=== PATIENT | female | born 1975 | race Caucasian/White ===

== ENCOUNTER 2019-04-26 15:02 | Outpatient (CLI) | payer BC, SELFPAY ==
--- NOTE | ~2019-04-26 | DEXA_ITS ---
BMD(1) Young-Adult(2) Age-Matched(3) Region (g/cm2) T-score Z-score WHO Classification L1 1.189 0.4 0.0 Normal L2 1.310 0.8 0.4 Normal L3 1.247 0.2 -0.1 Normal L4 1.364 1.1 0.7 Normal L1-L4 1.285 0.7 0.3 Normal L2-L4 1.310 0.8 0.4 Normal Trend: L2-L4 Change vs Change vs Measured Age BMD(1) Baseline Previous Date (years) (g/cm2) (%) (%) 04/26/2019 [age] 1.310 baseline - 1 - Statistically 68% of repeat scans fall within 1SD (+- 0.010 g/cm2 for AP Spine L2-L4) 2 - [place] (Combined NHANES (ages 20-30) / [employer] (ages 20-40)) AP Spine Reference Population (v112) 3 - Matched for Age, Weight (females 25-100 kg), Ethnic 11 - World Health Organization - Definition of Osteoporosis and Osteopenia for Women: Normal = T-score at or above -1.0 SD; Osteopenia = T-score between -1.0 and -2.5 SD; Osteoporosis = T-score at or below -2.5 SD; (WHO definitions only apply when a young healthy Women reference database is used to determine T-scores.) Printed: 04/26/2019 3:57:51 PM (13.60)76:3.00:50.00:12.0 0.00:9.78 0.60x1.05 27.9:%Fat=41.9% 0.00:0.00 0.00:0.00 Filename: [id number] Scan Mode: Standard;OneScan 37.0 A LITTLE WORLD [id number] BMD(1) Young-Adult(2,7) Age-Matched(3) Region (g/cm2) T-score Z-score WHO Classification Neck Left 1.220 1.3 1.6 Normal Right 1.214 1.3 1.6 Normal Mean 1.217 1.3 1.6 Normal Difference 0.005 0.0 0.0 - Total Left 1.257 2.0 2.0 Normal Right 1.265 2.0 2.0 Normal Mean 1.261 2.0 2.0 Normal Difference 0.007 0.1 0.1 - Hip [place] Length Comparison (mm) (Right = 98.4 mm) (Mean = 101.2 mm) (Left = 105.6 mm) Trend: Total Mean Change vs Change vs Measured Age BMD(1) Baseline Previous Date (years) (g/cm2) (%) (%) 04/26/2019 44.1 1.261 baseline - 1 - Statistically 68% of repeat scans fall within 1SD (+- 0.010 g/cm2 for DualFemur Total) 2 - [place] (Combined NHANES (ages 20-30) / [employer] (ages 20-40)) Femur Reference Population (v112) 3 - Matched for Age, Weight (females 25-100 kg), Ethnic 7 - DualFemur Total T-score difference is 0.1. Asymmetry is None. 11 - World Health Organization - Definition of Osteoporosis and Osteopenia for Women: Normal = T-score at or above -1.0 SD; Osteopenia = T-score between -1.0 and -2.5 SD; Osteoporosis = T-score at or below -2.5 SD; (WHO definitions only apply when a young healthy Women reference database is used to determine T-scores.) Printed: 04/26/2019 3:57:51 PM (13.60); Filename: [id number]; Right Femur; 20.3:%Fat=24.8%; Neck Angle (deg)= 67; Scan Mode: Standard 37.0 uGy; Left Femur; 19.9:%Fat=29.6%; Neck Angle (deg)= 72; Scan Mode: Standard 37.0 uGy [employer] [id number] Your patient Kenyetta Saucedo completed a BMD test on 04/26/2019 using the [employer]wright DXA System (analysis version: 13.60) manufactured by [employer] The following summarizes the results of our evaluation. PATIENT BIOGRAPHICAL: Name: Kenyetta Saucedo Date: 1975 Height: 60.0 in. Gender: Female Exam Date: 04/26/2019 Weight: 170.0 lbs.
--- NOTE | ~2019-04-26 | MM_ITS ---
EXAMINATION: MM screening vibha BI w nathen HISTORY: Screening mammogram TECHNIQUE: Craniocaudal and mediolateral oblique 3-D tomosynthesis images were obtained and synthetic 2-D images were generated. CAD analysis was submitted and interpreted. COMPARISON: None, baseline BREAST PARENCHYMAL COMPOSITION: The breasts are heterogeneously dense, which may obscure small masses . FINDINGS: There is no evidence of suspicious mass, calcification, or architectural distortion to sugg est malignancy in either breast. IMPRESSION: 1. No mammographic evidence of malignancy. 2. Recommend routine screening mammography in one year. BI-RADS Category 1: Negative Reviewed, dictated and finalized at location A. T MAKER
== END 2019-04-26 15:03 | disposition home or self-care (01) ==
LOC: CHSIMG 15:05
PROVIDERS: PCP Family Medicine
DX: Z12.31 Encounter for screening mammogram for malignant neoplasm of breast (principal); Z78.0 Asymptomatic menopausal state
CPT/HCPCS: 77063; 77067; 77080

== ENCOUNTER 2019-07-19 11:36 | Outpatient (CLI) | payer BC, SELFPAY ==
[2019-07-19 12:28] LABS: Basophils Absolute Auto 0.02 K/mm3 (0.00-0.10); Basophils Percent Auto 0.2 % (0.0-1.0); Eosinophils Absolute Auto 0.01 K/mm3 (0.02-0.50); Eosinophils Percent Auto 0.1 % (1.0-6.0); Hematocrit 37.7 % (35.0-49.0); Hemoglobin 12.6 g/dL (12.0-15.0); Immature Granulocyte Absolute 0.09 K/mm3 (0.00-0.00); Immature Granulocyte Percent A 0.8 % (0.0-0.0); Lymphocytes Absolute Auto 1.98 K/mm3 (1.10-4.50); Lymphocytes Percent Auto 18.2 % (18.0-42.0); Mean Corpuscular HGB Conc 33.4 g/dL (32.0-36.0); Mean Corpuscular Hemoglobin 29.9 pg (27.0-31.0); Mean Corpuscular Volume 89.3 fL (78.0-102.0); Mean Platelet Volume 11.6 fl (9.2-11.8); Monocytes Absolute Auto 0.56 K/mm3 (0.10-0.90); Monocytes Percent Auto 5.1 % (2.0-11.0); Neutrophils Absolute Auto 8.2 K/mm3 (1.7-7.2); Neutrophils Percent Auto 75.6 % (50.0-70.0); Platelet Count Result 224 K/mm3 (150-420); Red Blood Count 4.22 M/mm3 (4.20-5.40); Red Cell Distribution Width 13.2 % (11.6-14.4); White Blood Count 10.9 K/mm3 (4.8-10.8)
[2019-07-19 13:32] LABS: Alanine Aminotransferase 25 U/L (14-59); Albumin Level 4.1 g/dL (3.4-5.0); Alkaline Phosphatase 57 U/L (46-116); Anion Gap 18.7 mmol/L (7-16); Aspartate Amino Transferase 13 U/L (15-37); Bilirubin,Total 0.7 mg/dL (0.00-1.00); Blood Urea Nitrogen 17 mg/dL (7-18); Calcium 8.5 mg/dL (8.5-10.1); Carbon Dioxide 22 mmol/L (21-32); Chloride 106 mmol/L (98-108); Estimated Glomerular Filt Rate > 60; Glucose 101 mg/dL (70-99); Osmolality Calculated 297 mOsm/kg (285-295); Potassium 3.7 mmol/L (3.5-5.1); Sodium 143 mmol/L (136-145); Thyroid Stimulating Hormone 1.27 uIU/mL (0.36-3.74); Total Protein 7.3 g/dL (6.4-8.2)
== END 2019-07-19 11:37 | disposition home or self-care (01) ==
LOC: CHSLAB 11:41
PROVIDERS: PCP Family Medicine; Visit Provider Family Medicine
DX: M54.2 Cervicalgia (principal)
CPT/HCPCS: 36415; 80053; 84443; 85025

== ENCOUNTER 2019-12-06 22:09 | Emergency (ER) | payer BC, SELFPAY ==
--- NOTE | ~2019-12-06 | XR_ITS ---
EXAMINATION: XR hand LT min 3V DATE: 12/06/2019 22:55 INDICATION: Left hand pain. TECHNIQUE: 3 views of left hand were obtained. COMPARISON: None. FINDINGS: Bone alignment is normal. No fracture. There is mild osteoarthritis of first carpometacarpa l joint and many of the interphalangeal joints. There is moderate osteoarthritis of second and third distal interphalangeal joints. IMPRESSION: 1. Polyarticular osteoarthritis. Reviewed, dictated and finalized at location A.
[2019-12-06 22:15] VITALS: BP 153/93; PULSE 80; RESP 20; TEMP 36.9; O2SAT 98
--- NOTE | 2019-12-06 22:29 | ED.GENADULT ---
HPI - General Adult General Chief complaint: Extremity Injury, Upper Stated complaint: hand pain Source: patient Mode of arrival: ambulatory Limitations: no limitations History of Present Illness HPI narrative: Kenyetta is a 44F with a PMH of pseudo tumor cerebri and surgery on her left hand for arthritis that presented to the ED with pain in her left hand. She was going out walking her large 100lb dog when it bolted. The leash then slammed her left hand into the door. She had immediate pain, numbness, tingling and swelling and came to the ED. She had no other injures and no other medical concerns. Related Data Home Medications Medication Instructions Recorded Confirmed acetazolamide 500 mg PO DAILY 12/06/19 12/06/19 gabapentin 600 mg PO TID 12/06/19 12/06/19 medroxyprogesterone 150 mg IM [id number] 12/06/19 12/06/19 tizanidine 4 mg PO DAILY 12/06/19 12/06/19 Allergies Allergy/AdvReac Type Severity Reaction Status Date / Time No Known Allergies Allergy Verified 12/06/19 22:25 Review of Systems Constitutional: Constitutional: Reports no additional constitutional complaints Eyes: Eyes: Reports no additional eye complaints ENT: Reports system reviewed and no additional complaints, except as documented Cardiovascular: Cardiovascular: Reports no additional cardiovascular complaints Respiratory: Respiratory: Reports no additional respiratory complaints Gastrointestinal: Gastrointestinal: Reports no additional gastrointestinal complaints Genitourinary: Genitourinary: Reports no additional female genitourinary complaints Musculoskeletal: Musculoskeletal: Reports as per HPI Integumentary/Breasts: Skin/Breast: Reports system reviewed and no additional complaints, except as docu Neurologic: Reports system reviewed and no additional complaints, except as documented Psychiatric: Psychiatric: Reports no additional psychiatric complaints Endocrine: Endocrine: Reports no additional endocrine complaints Hematologic/Lymphatic: Hematologic/Lymphatic: Reports no additional hematologic/lymphatic complaints Allergic/Immunologic: Allergic/Immunologic: Reports no additional allergic/immunologic complaints Exam Const: General: no acute distress and alert Orientation/consciousness: patient oriented x3 Limitations: No altered mental status HENMT: Head: normal to inspection Eyes: Conjunctivae: conjunctivae normal Pupils: Equal, round and reactive pupils present Neck: Neck: normal visual inspection Chest: Chest palpation & inspection: normal inspection of the chest Resp: Effort & Inspection: normal respiratory effort Cardio: Rate: regular rate GI: GI Palp: Yes Soft to palpation, No Tenderness to palpation present (GI) and No Guarding due to palpation present (GI) Skin: General skin exam: normal color Rashes: no rashes Neuro: General: patient oriented x3 and moves all extremities Other: Has sensation in all fingers of her left hand and has normal movement and strenght in the left hand and fingers Extrem: Other: Swelling over the lateral dorsal side of her left hand. 5/5 emergency medical services coordinator strength. No tenderness in the anatomic snuffbox. Psych: Appearance: grossly normal Mental Status: mental status grossly normal Course Course Emergency Course: Kenyetta was evaluated and radiographs were ordered. She refused pain meds. EXAMINATION: XR hand LT min 3V DATE: 12/06/2019 22:55 INDICATION: Left hand pain. TECHNIQUE: 3 views of left hand were obtained. COMPARISON: None. FINDINGS: Bone alignment is normal. No fracture. There is mild osteoarthritis of first carpometacarpal joint and many of the interphalangeal joints. There is moderate osteoarthritis of second and third distal interphalangeal joints. IMPRESSION: 1. Polyarticular osteoarthritis. Discharge Plan Discharge Clinical Impression: Contusion of hand Patient Disposition: Home, Self-Care Condition: Stable Instructions: Contusion in Adults (ED) Additional Instr
[2019-12-06 23:09] VITALS: BP 121/75; PULSE 80; RESP 18; TEMP 36.8; O2SAT 99
== END 2019-12-06 23:10 | disposition home or self-care (01) ==
PROVIDERS: Emergency Provider Family Medicine; PCP Family Medicine
DX: S60.222A Contusion of left hand, initial encounter (principal); W22.8XXA Striking against or struck by other objects, initial encounter
CPT/HCPCS: 73130; 99282; 99283

== ENCOUNTER 2020-11-11 19:06 | Outpatient (CLI) | payer BC, SELFPAY ==
[2020-11-11 19:31] LABS: Mean Platelet Volume 11.3 fl (9.2-11.8); Platelet Count Result 219 K/mm3 (150-420)
[2020-11-11 19:44] LABS: Prothrombin Time 10.9 Seconds (9.50-12.10)
== END 2020-11-11 19:07 | disposition home or self-care (01) ==
LOC: CHSLAB 19:10
PROVIDERS: PCP Physician Assistant
DX: G93.2 Benign intracranial hypertension (principal)
CPT/HCPCS: 36415; 85049; 85610

== ENCOUNTER 2023-11-06 08:18 | Outpatient (CLI) | payer BC, SELFPAY ==
--- NOTE | ~2023-11-06 | MR_ITS ---
EXAMINATION: MR brain/brain stem wo con DATE: 11/06/2023 09:12 INDICATION: Benign intracranial hypertension TECHNIQUE: Magnetic resonance imaging (MRI) of the brain and brainstem was performed without intraven ous contrast. Sequences included sagittal and axial T1-weighted SE, axial diffusion-weighted FS SE, a xial T2*-weighted GRE, axial T2-weighted FLAIR, and axial T2-weighted FSE. Apparent diffusion coeffic ient (ADC) maps were created. COMPARISON: Head CT dated 09/15/2016 FINDINGS: Small region of encephalomalacia consistent with chronic infarct in the right occipital lobe. There a re no areas of restricted diffusion to suggest acute infarction. No intracranial hemorrhage. There is a 1.3 cm region of increased T2 signal intensity in the anterior inferior right frontal lobe. There are no intraparenchymal signal abnormalities seen on the other pulse sequences. The ventricles are sy mmetric and normal in size. There are no abnormal extra-axial fluid collections. Flow voids are seen in the cerebral arteries on the T2-weighted sequences consistent with their expected patency. Small l ikely mucous retention cyst at the lateral left maxillary sinus. Visualized orbits and soft tissues a re unremarkable. IMPRESSION: 1. Small old infarct in the right occipital lobe. No acute intracranial process. 2. Single indeterminate 1.3 cm T2 hyperintense lesion in the anterior right frontal lobe which has a wide differential which would include malignancy either primary or metastatic. Would recommend additi onal postcontrast MR imaging for further evaluation. Reviewed, dictated and finalized at location A. IMPRESSION: 1. Small old infarct in the right occipital lobe. No acute intracranial process . 2. Single indeterminate 1.3 cm T2 hyperintense lesion in the anterior right fro ntal lobe which has a wide differential which would include malignancy either p rimary or metastatic. Would recommend additional postcontrast MR imaging for fu rther evaluation.
--- NOTE | ~2023-11-06 | XR_ITS ---
XR chest 2V DATE: 11/06/2023 09:04 INDICATION: Worsening wheezing TECHNIQUE: 2 views COMPARISON: 03/19/2014 2 view chest FINDINGS: Normal heart size. No hilar or mediastinal enlargement. No pulmonary infiltrate or consolid ation, pleural effusion or pulmonary vascular congestion or pneumothorax. There is thoracic dextroscoliosis. Status post anterior and posterior cervical spine fusion. IMPRESSION: No active cardiopulmonary disease or pulmonary hyperinflation is detected Reviewed, dictated and finalized at location J. IMPRESSION: No active cardiopulmonary disease or pulmonary hyperinflation is de tected
== END 2023-11-06 08:19 | disposition home or self-care (01) ==
LOC: CHSIMG 08:20
PROVIDERS: PCP Family Medicine
DX: G93.2 Benign intracranial hypertension (principal); J20.9 Acute bronchitis, unspecified; Z86.73 Personal history of transient ischemic attack (TIA), and cerebral infarction without residual deficits
CPT/HCPCS: 70551; 71046

== ENCOUNTER 2023-11-20 08:19 | Outpatient (CLI) | payer BC, SELFPAY ==
--- NOTE | ~2023-11-20 | MR_ITS ---
EXAMINATION: MR brain/brain stem wo/w con DATE: 11/20/2023 10:19 INDICATION: Abnormal masses seen on prior examination. TECHNIQUE: Magnetic resonance imaging (MRI) of the brain and brainstem was performed without and with intravenous contrast. Sequences included sagittal and axial T1-weighted SE, axial diffusion-weighted FS SE, axial T2*-weighted GRE, axial T2-weighted FLAIR Propeller, and axial T2-weighted Propeller. A pparent diffusion coefficient (ADC) maps were created. 14 cc MultiHance administered intravenously. COMPARISON: MRI dated 11/06/2023. FINDINGS: There is a chronic right occipital lobe infarction. There is a right frontal lobe T2 hyperi ntense mass measuring 1.5 x 1.2 cm with relatively homogeneous enhancement. There is an associated en hancing dural tail no ventriculomegaly or midline shift. Orbits are symmetric without disconjugate ga ze. Paranasal sinuses and mastoids are pneumatized. Structures of the posterior fossa including 7/8th cranial nerve complexes are normal. No ventriculomegaly or midline shift. Orbits are symmetric witho ut disconjugate gaze. IMPRESSION: 1. Enhancing right frontal lobe mass with enhancing dural tail. Considerations include benign meningi marti, metastatic disease and primary intracranial neoplasm. 2: Chronic right occipital lobe infarction. Reviewed, dictated and finalized at location B. IMPRESSION: 1. Enhancing right frontal lobe mass with enhancing dural tail. Considerations include benign meningioma, metastatic disease and primary intracranial neoplasm . 2: Chronic right occipital lobe infarction.
== END 2023-11-20 08:20 | disposition home or self-care (01) ==
PROVIDERS: PCP Family Medicine
DX: R93.89 Abnormal findings on diagnostic imaging of other specified body structures (principal)
CPT/HCPCS: 70553; A9577

== ENCOUNTER 2023-11-30 12:36 | Outpatient (CLI) | payer BC, SELFPAY ==
--- NOTE | ~2023-11-30 | US_ITS ---
EXAMINATION: US carotid duplex BI DATE: 11/30/2023 13:31 INDICATION: Right occipital lobe cerebral infarct TECHNIQUE: Grayscale, color Doppler, and pulsed Doppler images of the cervical carotid arteries were obtained. The degree of vessel stenosis is placed in one of the following categories: normal, <50%, 5 0-69%, >=70% but less than near-occlusion, near-occlusion, or total occlusion. Note that percent sten osis relative to normal distal artery lumen diameter is indirectly measured from velocity measurement s as described by Alex, et al. Radiology 2003; [id number]:340-346. COMPARISON: None. FINDINGS: RIGHT: The right common carotid artery (CCA) peak systolic velocity (PSV) is 63 cm/s. The right internal car otid artery (ICA) PSV is 79 cm/s. The right ICA end-diastolic velocity (EDV) is 43 cm/s. The right IC A/CCA PSV ratio is 1.3. Grayscale and color Doppler images yield an estimate of 0% diameter reduction from plaque in the ICA. There is antegrade flow in the right vertebral artery. LEFT: The left CCA PSV is 65 cm/s. The left ICA PSV is 69 cm/s. The left ICA EDV is 32 cm/s. The left ICA/C CA PSV ratio is 1.0. Grayscale and color Doppler images yield an estimate of 0% diameter reduction fr om plaque in the ICA. There is antegrade flow in the left vertebral artery. IMPRESSION: 1. Normal internal carotid arteries. Reviewed, dictated and finalized at location A.
== END 2023-11-30 12:37 | disposition home or self-care (01) ==
PROVIDERS: PCP Family Medicine
DX: I63.9 Cerebral infarction, unspecified (principal)
CPT/HCPCS: 93880

== ENCOUNTER 2023-12-02 14:42 | Outpatient (CLI) | payer BC, SELFPAY ==
[2023-12-03 06:48] LABS: Cholesterol 133 mg/dL (0-200); HDL Direct 36 mg/dL (40-60); LDL Cholesterol Calculated 60 mg/dL (<130); Triglycerides 184 mg/dL (0-150)
== END 2023-12-02 14:43 | disposition home or self-care (01) ==
LOC: CHSLAB 14:52
PROVIDERS: PCP Physician Assistant
DX: I63.9 Cerebral infarction, unspecified (principal)
CPT/HCPCS: 36415; 80061

== ENCOUNTER 2023-12-23 11:59 | Outpatient (CLI) | payer BC, SELFPAY ==
--- NOTE | 2023-12-23 12:08 | ECHO_ITS ---
Patient Info Name: Kenyetta Saucedo Age: 48 years : 1975 Gender: Female Ht: 60 in Wt: 158 lbs BSA: 1.77 m2 HR: 65 bpm BP: 121 / 87 mmHg Heart Rhythm: Sinus Rhythm Technical Quality: Good Exam Date: 12/23/2023 12:08 PM Exam Location: [facility] Patient Status: Outpatient Admit Date: 12/23/2023 Staff Ordering Physician: JuanMela Inoculator: Diana Perez RDCS Attending Provider: ShemarMela Exam Type: CA echo doppler color flow Study Info Indications - CEREBRAL INFARCTION Complete two-dimensional, color flow and Doppler transthoracic echocardiogram is performed. Summary 1. Complete two-dimensional, color flow and Doppler transthoracic echocardiogram is performed. 2. Left ventricular chamber dimension is normal. 3. Left ventricular systolic function is normal, estimated at 60-65%. 4. The left ventricular diastolic function is grade I diastolic dysfunction. 5. E/e' 11 is mildly elevated. 6. There is trace tricuspid valve regurgitation. 7. No pulmonary hypertension, estimated pulmonary arterial systolic pressure is 31 mmHg. 8. There is trace pulmonic regurgitation. Left Ventricle E/e' 11 is mildly elevated. Left ventricular chamber dimension is normal. Left ventricular systolic function is normal, estimated at 60-65%. The left ventricular diastolic function is grade I diastolic dysfunction. Right Ventricle Right ventricular systolic function is normal and with normal TAPSE 2.3 cm. Right ventricular chamber dimension is normal. Left Atria Left atrial chamber dimension is normal. Right Atria Right atrial chamber dimension is normal. Aortic Valve The aortic valve is trileaflet. There is no aortic valve stenosis. There is no aortic valve regurgitation. Pulmonic Valve There is trace pulmonic regurgitation. Mitral Valve There is no mitral valve stenosis. There is no mitral valve regurgitation. Tricuspid Valve There is trace tricuspid valve regurgitation. No pulmonary hypertension, estimated pulmonary arterial systolic pressure is 31 mmHg. Pericardium/Pleural There is no pericardial effusion. Inferior Vena Cava Normal inferior vena cava with >50% collapse upon inspiration consistent with normal right atrial pressure, 5 mmHg. Aorta The aortic root size at the sinus of Valsalva is normal. Left Ventricular Outflow Tract Name Value Normal LVOT 2D LVOT Diameter 2.0 cm LVOT Doppler LVOT Peak Velocity 134 cm/s LVOT Peak Gradient 7 mmHg LVOT Mean Gradient 5 mmHg LVOT VTI 34 cm LVOT VTI/AV VTI Ratio 0.9 LVOT Stroke Volume 102 ml Mitral Valve Name Value Normal MV Doppler MV Decel Jessamine 376 cm/s2 MV PHT 73 ms MV Area (PHT) 3.0 cm2 4.0-5.0 MV Diastol
== END 2023-12-23 12:00 | disposition home or self-care (01) ==
LOC: CHSIMG 12:03
PROVIDERS: PCP Physician Assistant
DX: I63.9 Cerebral infarction, unspecified (principal)
CPT/HCPCS: 93306

== ENCOUNTER 2023-12-29 08:17 | Outpatient (CLI) | payer BC, SELFPAY ==
[2023-12-29 08:39] LABS: Mean Platelet Volume 11.5 fl (9.2-11.8); Platelet Count Result 242 K/mm3 (150-420)
[2023-12-29 08:52] LABS: Prothrombin Time 10.8 Seconds (9.50-12.1)
== END 2023-12-29 08:18 | disposition home or self-care (01) ==
LOC: CHSLAB 08:23
PROVIDERS: PCP Physician Assistant
DX: H47.11 Papilledema associated with increased intracranial pressure (principal)
CPT/HCPCS: 36415; 85049; 85610

== ENCOUNTER 2024-01-18 10:16 | Outpatient (CLI) | payer BC, SELFPAY ==
--- NOTE | ~2024-01-18 | CT_ITS ---
CT ANGIOGRAM HEAD History: Headache, pseudotumor cerebri. Technique: Axial noncontrast imaging of the brain was performed. Serial spiral axial images through t he head were then obtained during arterial phase IV injection of 100 cc of Omnipaque 350. 3-D postpro cessing and MIP images were then reconstructed on the remote workstation. Dose reduction technique wa s used on this scan by utilizing automated exposure control and iterative reconstruction technique. [facility] dose-length product (DLP) was 1035.02 mGy-cm. Findings: There is a 1.6 x 1.0 x 1.4 cm hypodense presumed meningioma in the anterior right cranial f jennifer (series 2 image 15). No intracranial hemorrhage or acute infarct seen. No significant mass effec t or midline shift. There are several focal areas of hypodensity in the parietal lobes superiorly (ax ial images 35, 45, 48).. Ventricles and subarachnoid spaces are unremarkable. Paranasal sinuses and m astoid air cells are clear. Calvarium intact. Distal vertebral arteries, basilar artery, and posterior cerebral arteries are patent. Distal interna l carotid arteries, middle cerebral arteries, and anterior cerebral arteries are patent. No large ves opal occlusion or stenosis. No aneurysm seen. Impression: 1.6 x 1.0 x 1.4 cm meningioma in the anterior cranial fossa, as detailed above. No vascular abnormality evident. Focal hypodense areas in the high parietal lobes, as detailed above. Findings likely represent chron ic focal infarcts. Reviewed, dictated and finalized at location M. Impression: 1.6 x 1.0 x 1.4 cm meningioma in the anterior cranial fossa, as detailed above. No vascular abnormality evident. Focal hypodense areas in the high parietal lobes, as detailed above. Findings l ikely represent chronic focal infarcts.
[2024-01-18 10:52] LABS: Estimated Glomerular Filt Rate > 60
== END 2024-01-18 10:17 | disposition home or self-care (01) ==
PROVIDERS: PCP Physician Assistant
DX: I63.9 Cerebral infarction, unspecified (principal); D32.0 Benign neoplasm of cerebral meninges
CPT/HCPCS: 70496; Q9967

== ENCOUNTER 2024-01-24 09:31 | Outpatient (CLI) | payer BC, SELFPAY ==
--- NOTE | ~2024-01-24 | MM_ITS ---
EXAMINATION: MM screening vibha BI w nathen HISTORY: Screening TECHNIQUE: Craniocaudal and mediolateral oblique 3-D tomosynthesis images were obtained and synthetic 2-D images were generated. CAD analysis was submitted and interpreted. COMPARISON: 04/26/2019 BREAST PARENCHYMAL COMPOSITION: Dense: The breasts are heterogeneously dense, which may obscure small masses FINDINGS: There is no evidence of suspicious mass, calcification, or architectural distortion to sugg est malignancy in either breast. There has been no suspicious interval change. IMPRESSION: 1. No mammographic evidence of malignancy. 2. Recommend routine screening mammography in one year. BI-RADS Category 1: Negative Reviewed, dictated and finalized at location B. COMMUNITY MANAGER
--- NOTE | ~2024-01-24 | XR_ITS ---
XR cervical spine 4-5V Ordering provider: Montse Santana History: . RADICULOPATHY; CERVICAL REGION . Comparison: None. FINDINGS: VERTEBRAL BODIES: Normal height and alignment. No visible fracture or subluxation. The dens is intact . Postoperative changes seen at the levels of C5, C6 and C7. DISK SPACES: Narrowing of the disc C4-C5 otherwise, Well maintained. Uncovertebral joint osteoarthrit ic changes at the level of C4-C5. Narrowing of the right C6-C7 intervertebral foramen. PARASPINOUS SOFT TISSUES: No prevertebral soft tissue swelling. IMPRESSION: No acute osseous abnormality cervical spine. Postoperative changes. Reviewed, dictated and finalized at location A. CTOR OF RECRUITMENT AND ADMISSIONS
== END 2024-01-24 09:32 | disposition home or self-care (01) ==
LOC: CHSIMG 09:37
PROVIDERS: PCP Physician Assistant
DX: Z12.31 Encounter for screening mammogram for malignant neoplasm of breast (principal); M54.12 Radiculopathy, cervical region; Z98.890 Other specified postprocedural states
CPT/HCPCS: 72050; 77063; 77067

== ENCOUNTER 2024-02-08 00:13 | Day surgery (SDC) | payer BC, SELFPAY ==
[2024-02-04 13:55] VITALS: BMI 31.5
[2024-02-08 08:58] VITALS: BP 106/86; PULSE 75; RESP 16; TEMP 36.1; O2SAT 75; BMI 30.5
[2024-02-08 09:06] LABS: Glucose Point of Care 88 mg/dl (65-105)
--- NOTE | 2024-02-08 09:12 | WPDANESEPPF ---
Anes - Initial Pre Proc Eval Procedure: Operation Date: 02/08/24 10:00 Proposed Procedures p Colonoscopy - Dominic Gibbons MD Date/Time: 02/08/24 09:12 Surgeon: Dominic Gibbons MD Pre Op Diagnosis: Family history of malignant neoplasm Patient Data Age: 48 Gender: F Height: 1.52 m Weight: 73.2 kg Allergies Allergy/AdvReac Type Severity Reaction Status Date / Time acetaminophen Allergy Anaphylaxis Verified 02/08/24 09:08 [From Tylenol-Codeine #3] codeine Allergy Anaphylaxis Verified 02/08/24 09:08 [From Tylenol-Codeine #3] Home Medications Medication Instructions Recorded Confirmed Type acetazolamide 500 mg 500 mg PO DAILY 12/06/19 02/08/24 History capsule,extended release gabapentin 600 mg tablet 600 mg PO TID 12/06/19 02/08/24 History medroxyprogesterone 150 mg/mL 150 mg IM [id number] 12/06/19 02/08/24 History intramuscular syringe tizanidine 4 mg tablet 4 mg PO TID 12/06/19 02/08/24 History furosemide 80 mg tablet 80 mg PO DAILY 02/04/24 02/08/24 History nortriptyline 10 mg capsule 20 mg PO DAILY 02/04/24 02/08/24 History potassium chloride 20 mEq 20 meq PO DAILY 02/04/24 02/08/24 History tablet,extended release(part/cryst) (Klor-Con M) rosuvastatin 10 mg tablet 10 mg PO DAILY 02/04/24 02/08/24 History Laboratory Tests 02/08/24 09:02 POC Capillary Glucose 88 mg/dl (65-105) Patient hx anesthesia problems: none Family hx anesthesia problems: none Results Review: All pre-operative results and documents have been reviewed as part of the pre-operative evaluation. [facility] Social History Social History Smoking status: Never smoker Alcohol intake: current Alcohol use details: rarely Substance use: never Substance use type: does not use Living arrangements: with family Spiritual care concerns: No Anes - Eval Final PreProcedure Day of Procedure 02/08/24 09:12 Patient weight: obese Heart: regular rate and rhythm Lungs: clear to auscultation Airway: Mallampati scale class II Neurological: alert and oriented Last oral intake: >/= 8 hours ASA classification: II Emergent: no Anesthetic plan: proceed Anesthesia type and monitoring: general GIVS and standard monitoring Results Review: All pre-operative results and documents have been reviewed as part of the pre-operative evaluation. Hyperlipidemia. Hx of mild CVA/TIA, no clear residual. Ex smoker, Pt reports new dx of meningioma but no intervention at this point. ECHO 12/2023 w nml LVEF. Informed Consent: The patient's anesthetic plan and its attendant risks and benefits were discussed with the patient/family/POA. Questions were solicited and answers provided to the satisfaction of the patient/family/POA.
[2024-02-08 09:16] LABS: BEDSIDEPREGUCG Negative (Negative)
[2024-02-08] MEDS: LACTATED RINGERS 1,000 ML 150 ML IV CONT (09:29)
--- NOTE | 2024-02-08 10:19 | P.HP_ITS ---
H&P: HPI History of Present Illness Date/Time: 02/08/24 10:19 Chief Complaint: This is the patient's first colonoscopy. There are no GI symptoms and there is no family history of colorectal cancer. Review of Systems Review of Systems: All systems reviewed & are unremarkable except as noted in HPI and below [facility] Social History Social History Smoking status: Never smoker Alcohol intake: current Alcohol use details: rarely Substance use: never Substance use type: does not use Living arrangements: with family Spiritual care concerns: No Meds Home Medications and Allergies Home Medications Medication Instructions Recorded Confirmed Type acetazolamide 500 mg 500 mg PO DAILY 12/06/19 02/08/24 History capsule,extended release gabapentin 600 mg tablet 600 mg PO TID 12/06/19 02/08/24 History medroxyprogesterone 150 mg/mL 150 mg IM [id number] 12/06/19 02/08/24 History intramuscular syringe tizanidine 4 mg tablet 4 mg PO TID 12/06/19 02/08/24 History furosemide 80 mg tablet 80 mg PO DAILY 02/04/24 02/08/24 History nortriptyline 10 mg capsule 20 mg PO DAILY 02/04/24 02/08/24 History potassium chloride 20 mEq 20 meq PO DAILY 02/04/24 02/08/24 History tablet,extended release(part/cryst) (Klor-Con M) rosuvastatin 10 mg tablet 10 mg PO DAILY 02/04/24 02/08/24 History Allergies Allergy/AdvReac Type Severity Reaction Status Date / Time acetaminophen Allergy Anaphylaxis Verified 02/08/24 09:08 [From Tylenol-Codeine #3] codeine Allergy Anaphylaxis Verified 02/08/24 09:08 [From Tylenol-Codeine #3] Vital Signs Vital Signs - 24 hr 02/08/24 08:58 Temperature 97.0 F L Pulse Rate 75 Respiratory Rate 16 Blood Pressure 106/86 Pulse Oximetry 75 L Oxygen Delivery Room Air Exam Const: General: cooperative and healthy appearing Resp: Effort & Inspection: normal respiratory effort and able to speak in complete sentences Auscultation: clear to auscultation bilaterally Cardio: Rate: regular rate Rhythm: regular rhythm GI: Inspection: normal to inspection GI Palp: No No hepatosplenomegaly present Auscultation: normal bowel sounds Rectal Exam: deferred Skin: General skin exam: normal color Psych: Appearance: grossly normal Mental Status: mental status grossly normal Assessment and Plan Assessment and plan (1) Screening for malignant neoplasm of colon: Code(s): Z12.11 - Encounter for screening for malignant neoplasm of colon Status: Acute Assessment and Plan: The patient is deemed a good candidate for the procedure. Consent signed. Will proceed.
[2024-02-08 10:50] VITALS: BP 112/71; PULSE 70; RESP 22; O2SAT 100
[2024-02-08 11:00] VITALS: BP 111/77; PULSE 64; RESP 18; O2SAT 100
[2024-02-08 11:10] VITALS: BP 120/83; PULSE 70; RESP 20; O2SAT 100
== END 2024-02-08 11:20 | disposition home or self-care (01) ==
PROVIDERS: PCP Physician Assistant; Visit Provider Internal Medicine Gastroenterology
PROC: 0DJD8ZZ Inspection of Lower Intestinal Tract, Via Natural or Artificial Opening Endoscopic (ICD-10-PCS; CPT 45378; principal; 2024-02-08 10:00)
DX: Z12.11 Encounter for screening for malignant neoplasm of colon (principal); D12.2 Benign neoplasm of ascending colon; K57.30 Diverticulosis of large intestine without perforation or abscess without bleeding; E78.5 Hyperlipidemia, unspecified; E66.9 Obesity, unspecified; Z68.30 Body mass index [BMI] 30.0-30.9, adult; Z87.891 Personal history of nicotine dependence; Z86.79 Personal history of other diseases of the circulatory system; Z80.0 Family history of malignant neoplasm of digestive organs
CPT/HCPCS: 45385; 82948; 88305; J2003; J2704; J7120

== ENCOUNTER 2024-03-07 12:07 | Outpatient (CLI) | payer BC, SELFPAY ==
--- NOTE | ~2024-03-07 | DEXA_ITS ---
Bone Density Report Name: RUTH CARLSON Age: 49 Sex: Female Ethnicity: White Date of : 1975 Indication: screening for osteoporosis; prior fracture; Referring Provider: Claudio, Mina Study: Bone densitometry was performed. Exam Date: March 07, 2024 Accession number: [id number] Bone Density: Region BMD T-score Z-score Classification AP Spine(L1-L4) 0.979 -0.6 0.1 Normal Femoral Neck (Left) 0.962 1.0 1.8 Normal Total Hip (Left) 1.096 1.3 1.7 Normal Femoral Neck (Right) 0.953 0.9 1.7 Normal Total Hip (Right) 1.096 1.3 1.7 Normal Femoral Neck Mean 0.957 1.0 1.7 Normal Total Hip Mean 1.096 1.3 1.7 Normal World Health Organization criteria for BMD impression classify patients as: Normal (T-score at or above -1.0), Osteopenia (T-score between -1.0 and -2.5), or Osteoporosis (T-score at or below -2.5). 10-year Fracture Risk: FRAX not reported because: Premenopausal woman All T-scores for Spine Total, Hip Total, Femoral Neck at or above -1.0 Previous Exams: Region Exam Age BMD T-score BMD Change BMD Change Date g/cm2 vs Baseline vs Previous AP Spine (L1-L4) 03/07/2024 49 0.979 -0.6 -0.162 (-14.2% -0.162 (-14.2% 04/26/2019 44 1.141 0.9 Total Hip(Left) 03/07/2024 49 1.096 1.3 -0.088 (-7.4%) -0.088 (-7.4%) 04/26/2019 44 1.184 2.0 Total Hip(Right) 03/07/2024 49 1.096 1.3 -0.095 (-7.9%) -0.095 (-7.9%) 04/26/2019 44 1.191 2.0 *Denotes significance at 95% confidence level, LSC for AP Spine = 0.022 g/cm2, LSC for Total Hip = 0.027 g/cm2 # Denotes dissimilar scan types or analysis methods Clinical Information Provided by Patient: Has had a low trauma fracture Patient maximum height was 59.9 No regular weight bearing exercise Drinks caffeinated beverages Onset of menses at age 11 Premenopausal Number of children 2 Missed period for more than 6 months in a row Impression: The patient's bone mass is within expected range for age, gender and ethnicity. The patient has risk factors, including: previous fracture. No significant bone loss was observed. Discussion: BONE DENSITY IS WITHIN EXPECTED LIMITS FOR AGE, SEX AND RACE. Bone density is within expected limits for age, sex and race at all sites measured. The patient should follow a healthful lifestyle (good nutrition with adequate calcium and vitamin D, and appropriate weight-bearing exercise). Follow-Up: Consider repeating this study in 5 years or sooner if there is some new clinical indication. Reported by: ABIGAIL on 03/07/2024 12:40:00 PM. Reviewed, dictated and finalized at location A.
--- NOTE | ~2024-03-07 | CT_ITS ---
CT Scan of the Chest without Contrast: Clinical Indication: Lung cancer screening, nicotine dependence Technique: Contiguous sections were acquired throughout the chest without intravenous contrast. Dose reduction technique was used on this scan by utilizing automated exposure control and iterative recon struction technique. The dose-length product (DLP) was 76.24 mGy-cm. Findings: There is no evidence of any significant mediastinal, hilar or axillary lymphadenopathy. The mediastin al soft tissues appear normal. There is no evidence of pleural or pericardial effusion. The lungs are clear. No pulmonary nodules or infiltrates are noted. Images through the upper abdomen reveal no abnormalities. Impression: Lung RADS 1: Negative. 12 month follow-up screening CT advised. Reviewed, dictated and finalized at location . OMS COMPLIANCE DIRECTOR Impression: Lung RADS 1: Negative. 12 month follow-up screening CT advised.
[2024-03-07 13:52] LABS: CRP < 0.5 mg/dL (0.0-0.9)
== END 2024-03-07 12:08 | disposition home or self-care (01) ==
PROVIDERS: PCP Physician Assistant
DX: Z12.2 Encounter for screening for malignant neoplasm of respiratory organs (principal); Z79.3 Long term (current) use of hormonal contraceptives; Z13.820 Encounter for screening for osteoporosis; Z87.891 Personal history of nicotine dependence
CPT/HCPCS: 36415; 71271; 77080; 86140

== ENCOUNTER 2024-03-16 08:23 | Outpatient (CLI) | payer BC, SELFPAY ==
--- NOTE | ~2024-03-16 | MR_ITS ---
EXAMINATION: MRA brain wo con DATE: 03/16/2024 09:15 INDICATION: Intracranial aneurysm. TECHNIQUE: Magnetic resonance angiography (MRA) of the brain was performed without intravenous contra st with T1-weighted SPGR by the 3D [id number] technique. Maximum intensity projection 3D-reconstr uctions were obtained. COMPARISON: CTA head 01/18/2024, brain MRI 11/20/2023. FINDINGS: Left vertebral artery is dominant. There is no significant stenosis of basilar artery or the posterio r cerebral arteries. There is no significant stenosis of intracranial internal carotid arteries or an terior or middle cerebral arteries. Anterior communicating artery is normal. The posterior communicat ing arteries are normal. There is no aneurysm. There is a 14 mm extra-axial mass inferior to right fr ontal lobe, consistent with a meningioma. IMPRESSION: 1. No aneurysm. 2. 14 mm meningioma inferior to right frontal lobe. Reviewed, dictated and finalized at location A. SOFTWARE ARCHITECT
[2024-03-16 09:51] LABS: Erythrocyte Sedimentation Rate 5 mm/hr (0-15)
== END 2024-03-16 08:24 | disposition home or self-care (01) ==
LOC: CHSIMG 08:30
PROVIDERS: PCP Physician Assistant
DX: D32.0 Benign neoplasm of cerebral meninges (principal)
CPT/HCPCS: 36415; 70544; 85652

== ENCOUNTER 2024-05-10 12:54 | Outpatient (RCR) | payer BC, SELFPAY ==
--- NOTE | 2024-05-10 14:17 | OPREHPOC ---
Outpatient Therapy Plan of Care This is a Multidisciplinary Plan of Care that may contain components documented by all disciplines (PT, OT, and ST.) PT Problem 1 PT Problem #1 Knowledge Deficit PT Goal 1 Goal / Goal Update The patient will be independent in a home exercise program. Target Visit 4 PT Problem 2 PT Problem #2 Pain PT Goal 1 Goal / Goal Update The patient will report no greater than 4/10 cervical pain with cervical AROM and ADLs. Target Visit 6 PT Problem 3 PT Problem #3 Impaired Functional Mobility PT Goal 1 Goal / Goal Update The patient will demonstrate 50% or less self perceived disability per the Neck Index questionnaire. Target Visit 6
--- NOTE | 2024-05-10 14:17 | PTOPEVAL1 ---
Assessment and note entered by Odilia Robison, PT Evaluation Information Assessment Status Evaluation ICD-10 Condition Codes (PT) Radiculopathy, cervical M54.13 Onset 02/08/24 Subjective Information Kenyetta Saucedo reports she had two different cervical fusions in 2013. The first surgery did not take so a second was performed. She has been having pain since then and on disability. She is very limited with daily activities due to her chronic pain. She has to take extra time with all daily activities. She has had PT in the past after her surgeries and it caused her pain to be increased. She went to her neurologist for another diagnosis and her neck issues came up. She has been having frequent headaches and an eye doctor sent her to see a neurologist. A MRI showed a mass on her brain. She was told she had 3 strokes and diagnosed with a menangioma and small aneurysm. She has had an injection to help with her headaches which were diagnosed with migraines. Her neurologist wants to get her a MRI of her cervical spine but her insurance will not cover it until she tries PT. She has pain along her neck and both shoulders. She also gets numbness in her face and both hands. She notes pain is worse with driving, turning her head, sleeping, and trying to perform house chores. Reported Pain Level Pain Score 5: Self Report Assessment PT Clinical Summary Kenyetta Saucedo presents with chronic cervical pain and radiculopathy. She has had 2 cervical fusions in the past with the first one being a failure. 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 She objectively demonstrates decreased and painful cervical AROM, decreased posture, and tension in bilateral upper trapezius. She will benefit from skilled PT to address these limitations. Plan of Care Interventions Electrical Stimulation,Hot Pack/Cold Pack,Manual Therapy,Patient/Caregiver Education,Therapeutic Exercise PT Services Indicated Yes Treatment Frequency and 2 times a week for 6 visits Duration These treatments will address the objective and functional deficits as defined above. The patient will be advanced safely and appropriately in order for the patient to progress towards his/her prior level of function. Additional exercises will be introduced and as well as a comprehensive home exercise program upon discharge, if needed, ?to ensure carryover of functional gains achieved in the clinic. This treatment plan has been reviewed and agreement upon by the patient.
--- NOTE | 2024-05-30 15:10 | OPREHPOC ---
Outpatient Therapy Plan of Care This is a Multidisciplinary Plan of Care that may contain components documented by all disciplines (PT, OT, and ST.) PT Problem 1 PT Problem #1 Knowledge Deficit PT Goal 1 Goal / Goal Update The patient will be independent in a home exercise program. patient refused to perform therapeutic exercise Target Visit 4 Progress Not Met PT Problem 2 PT Problem #2 Pain PT Goal 1 Goal / Goal Update The patient will report no greater than 4/10 cervical pain with cervical AROM and ADLs. Target Visit 6 Progress Not Met PT Problem 3 PT Problem #3 Impaired Functional Mobility PT Goal 1 Goal / Goal Update The patient will demonstrate 50% or less self perceived disability per the Neck Index questionnaire. Target Visit 6 Progress Not Met
--- NOTE | 2024-05-30 15:10 | PTOPDC ---
Assessment and note entered by Odilia Robison, PT Evaluation Information Assessment Status Discharge ICD-10 Condition Codes (PT) Radiculopathy, cervical M54.13 Onset 02/08/24 Subjective Information Kenyetta Saucedo reports her neck pain and symptoms have not changed since she has been coming to PT. She is having less headaches however, she has been getting injections for migraines. Reported Pain Level Pain Score 6: Self Report Assessment PT Clinical Summary Kenyetta Saucedo has completed 6 skilled PT visits for cervical radiculopathy. She is reporting no overall change noted in symptoms since participating in PT. Treatment has been conservative with modalities and gently massage only as the patient does not tolerate therapeutic exercise. She objectively demonstrates ongoing tenderness in bilateral upper and middle trapezius muscles, decreased and painful cervical AROM, and decreased functional mobility. She did have a regression in cervical flexion AROM today compared to her initial evaluation. She will be discharged . Plan of Care PT Services Indicated No
== END 2024-05-30 15:40 | disposition home or self-care (01) ==
LOC: CHSPT 12:54
DX: M54.12 Radiculopathy, cervical region (principal)
CPT/HCPCS: 97014; 97140; 97162; 97750; G0283

== ENCOUNTER 2024-06-09 10:56 | Outpatient (CLI) | payer BC, SELFPAY ==
--- NOTE | ~2024-06-09 | XR_ITS ---
EXAMINATION: XR chest 2V 06/09/2024 11:21 INDICATION: Preop testing. Smoking history. PROCEDURE: 2 view chest COMPARISON: 11/06/2023 FINDINGS: The lungs are clear. The cardiomediastinal silhouette is within normal limits. There are no pleural effusions. There is no pneumothorax suspected. IMPRESSION: 1: NO ACUTE CARDIOPULMONARY DISEASE. Reviewed, dictated and finalized at location B.
--- NOTE | 2024-06-09 11:11 | ECG_ITS ---
Test Date: 2024-06-09 11:29:06 Measurements Intervals [place] Rate: 66 P: 25 MN: 156 QRS: 35 QRSD: 89 T: 39 QT: 381 QTc: 402 Interpretive Statements SINUS RHYTHM No previous ECG available for comparison Electronically Signed On 06-09-2024 18:16:51 CDT by Mathieu Rush M.D.
--- OUTSIDE RECORDS SUMMARY | 2024-06-09 12:20 | XMS_ITS | Data Portability ---
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 Pseudotumor cerebri 3. Chronic daily headaches / migraines 4. Mild coginitive deficits 5. No suspicion for Vasculitis. >>>>>>>>>>>>>>>>>>> >>>>>>>>>>>>>>>>>>> >>>>>> In my assessment, the patient does not have vasculitis of the central nervous system. It is likely that she suffered in 2017 a monophasic episode of RCVS ( reversible cerebrovascular vasoconstriction syndrome); there are several historic points to substantiate that: 1. Thunderclap headache at onset of her illness at [place] in 2017, with ICU stay. 2. diagnostic angiogram from [place] shows on series 10 with a left vert injection, areas of caliber change with skip lesions, with almost poor perfusion to no perfusion in the right DEMURRAGE CLERK territory. A corresponding; she has right occipital area of encephalomalacia probably the result of ischemia from RCVS. 3. The bilateral ICA injections on the angiogram show bilateral medium and multivessel skip lesions, suggestive of vasospasm, both of them affecting the posterior divisions of the middle cerebral arteries. There are bilateral distal peripheral areas of encephalomalacia in the parietal lobe on recent MRIs, which would be suggestive of ischemia caused by vasospasm in the distal watershed beds during a monophasic episode of vasospasm or RCVS. 4. The patient was on Effexor and Wellbutrin at the time of her illness in 2017, medications known to trigger for idiosyncratic reasons this illness. 5. Evidence against the presence vasculitis of the central nervous system is a recently normal MRA,, normal CRP, normal ESR, but most importantly a completely normal FLAIR sequence in terms of subcortical white matter small vessel disease burden. In our experience, ASE MASTER MECHANIC vasculitis, with such a protracted course of daily headaches and prior admissions with ASE MASTER MECHANIC illness, with present with small vessel or medium vessel disease burden on MRI. In summary I think she had RCVS in 2017, which caused the peripheral 3 areas of encephalomalacia in the brain that correspond to vasospasm seen on angiography, in the setting of SSRI/SNRI treatment. If one wishes to further confirm the absence of vasculitis, Dr Haley may elect to repeat the diagnostic angiogram, which will likely show complete reversal of her skip lesions. Resolution of angiographic findings suggests no Vasculitis (it would be impossible for her to have ASE MASTER MECHANIC vasculitis with reversal of the intracranial findings without steroids or long-term immunotherapy). I would like to believe her diagnosis of pseudotumor cerebri, especially that it has been diagnosed by an insole beveler and a neurologist with funduscopic examination. I would urge her to continue the care for this condition under Dr. Gilbert. She could have concomitant migraine headaches, intractable headaches, and pseudotumor cerebri, all of that would fall under the care of Dr. Gilbert, she will talk to them to see if there is room for treatment optimization. She suffers from mild cognitive changes, trouble finding her words, trouble with multitasking. I would recommend the next time she sees general neurology to have a full battery of memory testing, and help work her up for any cognitive deficits that could be retrained. The bilateral small parietal infarct could contribute to decreased cognitive function, it is not uncommon for bilateral cerebral hemispheric insults to cause cognitive deficits. Overall the patient is very well-functioning and I believe a short course of speech therapy to address her word finding difficulties and help her with multitasking activities is going to be of great benefit. I will order it accordingly. I do not see a need for the patient to return to see me. In the presence of old ischemic insults in the brain bilaterally, it would not be unreasonable to continue the low-dose aspirin which Dr. Haley started. total visit time with chart prep and documentation and counseling added up to 60min. [email or web address] Not available 04/04/2024 18:03:50 04/25/2024 04/25/2024 IMPRESSION: 1. History of multiple cerebrovascular accidents in the setting of an initially abnormal angiogram in 2017 with skip lesions and findings suggestive of vasospasm. More recent MRI/MRA did not show any flow abnormalities. 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 Furthermore, would not expect spontaneous remission of ASE MASTER MECHANIC vasculitis. 2. Cervical failed back syndrome. 3. Osteoarthritis. PLAN: 1. We will obtain serologies, including a complete ANCA panel, arthritis panel, Sjogren s screen, ROMY level, homocysteine level, lupus anticoagulant profile, antiphospholipid antibody panel, factor V Leiden, protein C and S, and [id number]-vjjaogmldcul , as well as antithrombin III in light of her family history of cerebrovascular accidents, though her vascular distribution shows reversible and not fixed vessel changes that have resolved on more recent MRI reassessment. 2. At this time, there is no indication of a need for immunosuppressive therapy. She does not exhibit features consistent with any type of autoimmune or vasculitic process. 3. Followup visit as needed here in rheumatology clinic. [email or web address] Not available 04/27/2024 10:24:55 05/04/2024 05/04/2024 In summary, Cleo luna is a 49-year-old woman, I am seeing in consultation regarding chronic headache, visual symptoms. Her neuro-ophthalmic examination today is normal. Specifically, there is no evidence of papilledema. Optic nerves are healthy looking. OCT RNFL, normal thickness OU. Ocampo visual field normal OU. The rest of her visual afferent and efferent functions are intact. Kenyetta's clinical course and neuro-ophthalmic examination are NOT consistent with optic neuritis. She also have no signs, or symptoms of elevated intracranial pressure, in fact lumbar puncture was performed in December 2023 that showed normal opening pressure at 20 cm. In addition, she have no risk factors for idiopathic intracranial hypertension, no recent weight gain, no exposure to high doses of vitamin A or steroids. She also had no exposure to doxycycline, tetracycline, or minocycline. I gave her instructions to decrease the dose of acetazolamide to 1000 mg daily. The dose of acetazolamide will be further decrease on her follow-up appointments. It is my impression that her headaches, and visual symptoms are secondary to untreated migraine. She agreed to try the newer CGRP blockers today. She received Emgality loading dose, 240 mg subcutaneous injection. If she has good response to Emgality, she will continue this medication at 120 mg subcutaneous injection, every 4 weeks. I answered all of her questions and concerns. She voiced understanding. [email or web address] Not available 05/04/2024 17:14:49 06/01/2024 06/01/2024 In summary, Cleo luna is a 49-year-old woman, I am seeing in consultation regarding chronic headache, and visual symptoms. Her neuro-ophthalmic examination today is normal. Specifically, there is no evidence of papilledema. Optic nerves are healthy looking. OCT RNFL, normal thickness OU. Ocampo visual field normal OU. The rest of her visual afferent and efferent functions are intact. Kenyetta's clinical course and neuro-ophthalmic examination are NOT consistent with optic neuritis. She also have no signs, or symptoms of elevated intracranial pressure, in fact lumbar puncture was performed in December 2023 that showed normal opening pressure at 20 cm. In addition, she have no risk factors for idiopathic intracranial hypertension, no recent weight gain, no exposure to high doses of vitamin A or steroids. She also had no exposure to doxycycline, tetracycline, or minocycline. I gave her instructions to d/c diamox today (06/01/24). It is my impression that her headaches, and visual symptoms are secondary to untreated migraine. She agreed to try the newer CGRP blockers today. She received Emgality loading dose, 240 mg subcutaneous injection. If she has good response to Emgality, she will continue this medication at 120 mg subcutaneous injection, every 4 weeks. He is seeing Dr. 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 I answered all of her questions and concerns. She voiced understanding. [email or web address] Not available 06/01/2024 11:34:03 Plan of Treatment Reminders Order Date Submit Date Provider Last Modified By Organization Details Last Modified Time Details Appointments Nurse Surgery Block 120.SURG 2024 10:00A M Dr. Davian Haley Not available Not available Not available Establish ed Patient 20.EST 04/07/ 2025 11:[address] Davian Haley Not available Not available Not available Establish ed Patient 30.EST 2024 01:00P M Enoc Camachoariane Not available Not available Not available Lab CBC w/ auto diff 2024 025 [facility] - [facility], [address] [place] [address], [id number], 06/06/2024 07:02:52 CMP, serum or plasma 2024 025 [facility] - [facility], [address] [place] [address], [id number], 06/06/2024 07:02:52 anca panel, serum 2024 025 [facility] - [facility], [address] [place] [address], [id number], 04/28/2024 19:38:06 arthritis panel 2024 025 [facility] - [facility], [address] [place] [address], [id number], 04/25/2024 18:16:55 sjogren antibody panel (ssa, ssb, ro, la), serum 2024 025 [facility] - [facility], [address] [place] [address], [id number], 04/26/2024 11:38:44 ROMY (angioten sin-conve rting enzyme), serum 2024 025 [facility] - [facility], [address] [place] [address], [id number], 04/26/2024 14:38:26 homocyste ine, moles/vol ume, serum 2024 025 [facility] - [facility], [address] [place] [address], [id number], 04/26/2024 13:38:23 lupus anticoagu lant aPTT + dRVVT screening panel w reflex 2024 025 [facility], [address] [place] [address], [id number], 04/27/2024 04:36:31 antiphosp holipid antibody panel, serum 2024 025 [facility], [address] [place] [address], [id number], 04/30/2024 12:40:48 factor V mutation, blood or tissue 2024 025 [facility], [address] [place] [address], [id number], 05/01/2024 15:41:24 protein C + protein S, functiona l panel, plasma 2024 025 [facility], [address] [place] [address], [id number], 04/27/2024 03:38:18 beta-2 glycoprot ein 1 iga+igg+i gm Ab, serum 2024 025 [facility], [address] [place] [address], [id number], 05/09/2024 04:21:07 antithrom bin Ag, quantitat perla, platelet poor plasma 2024 025 [facility], [address] [place] [address], [id number], 04/27/2024 03:38:19 Referral None recorded. Procedures visual evoked potential (PROC) 2024 025 [facility] - Central Scheduling, [address] [place] [address], [id number], 06/07/2024 12:12:03 Surgeries None recorded. Imaging None recorded. Medication Orders Emgality Pen 120 mg/mL subcutane ous pen injector 2024 025 [email or web address] [facility] [address], [id number], 06/06/2024 07:02:26 Patient TargetsNo targets recorded. Patient InstructionsNo instructions recorded. Reason for Referral None Reported. Results Created Date Observation Date Name Description Value Unit Range Abnormal Flag Note LastModifiedBy Organization Detail LastModifiedTime 04/25/1904/26/2024 sjogr en antib milad panel (ssa, ssb, ro, la), serum sjogren's Ab (ssa Not Available [facility] [address] [place] [address], [id number], 04/26/2024 11:38:44 04/25/19 25 04/26/2024 sjogr en antib milad panel (ssa, ssb, ro, la), serum *ssa result <0.2 ai 0.0-0. 9 Not Available [facility] [address] [place] [address], [id number], 04/26/2024 11:38:44 04/25/19 25 04/26/2024 sjogr en antib milad panel (ssa, ssb, ro, la), serum *ssb result <0.2 ai 0.0-0. 9 Not Available [facility] [address] [place] [address], [id number], 04/26/2024 11:38:44 04/25/19 25 04/26/2024 homoc ystei ne, moles /volu me, serum homocysteine 12.7 umol/ L 0.0-14 .5 Not Available [facility] [address] [place] [address], [id number], 04/26/2024 13:38:23 04/25/19 25 04/26/2024 ROMY (nicole otens in-co nvert ing enzym e), serum angiotensin- 1-conv enyzme 36 U/L 14-82 Not Available [facility] [address] [place] [address], [id number], 04/26/2024 14:38:26 04/25/19 25 04/27/2024 prote in C + prote in S, funct ional panel , plasm a protein C Not Available [facility] [address] [place] [address], [id number], 04/27/2024 03:38:18 04/25/19 25 04/27/2024 prote in C + prote in S, funct ional panel , plasm a protein C activity 161 % 73-180 Not Available [facility] [address] [place] [address], [id number], 04/27/2024 03:38:18 04/25/19 25 04/27/2024 prote in C + prote in S, funct ional panel , plasm a protein S activity 128 % 63-140 Prote in S activ ity may be false ly incre ased (mask ing an abnor mal, low resul t) in patie nts recei ving direc t Xa inhib itor (e.g. , rivar oxaba n, apixa ban, edoxa ban) or a direc t throm bin inhib itor (e.g. , dabig atran ) antic oagul ant treat ment due to assay inter feren ce by these drugs . Not Available [facility] [address] [place] [address], [id number], 04/27/2024 03:38:18 04/25/19 25 04/27/2024 antit hromb in activ ity, plasm a antithrombin III act rf 135 % 75-135 Direc t Xa inhib itor antic oagul ants such as rivar oxaba n, apixa ban and edoxa ban will lead to spuri ously eleva yaw antit hromb in activ ity level s possi susu maski ng a defic iency . Not Available [facility] [address] [place] [address], [id number], 04/27/2024 05:00:14 04/25/19 25 04/25/2024 arthr itis panel uric acid 3.3 mg/dL 2.3-6. 6 Not Available [facility] [address] [place] [address], [id number], 04/27/2024 17:21:27 04/25/19 25 04/25/2024 arthr itis panel sed rate 5 mm/HR 0 - 20 Not Available [facility] [address] [place] [address], [id number], 04/27/2024 17:21:27 04/25/19 25 04/25/2024 arthr itis panel rf 8.0 IU/mL <3.5-1 4 Not Available [facility] [address] [place] [address], [id number], 04/27/2024 17:21:27 04/25/19 25 04/25/2024 arthr itis panel ccp antibody, IgG <0.54 U/mL <=4.9 Not Available [facility] [address] [place] [address], [id number], 04/27/2024 17:21:27 04/25/19 25 04/27/2024 arthr itis panel arthritis panel Not Available [facility] [address] [place] [address], [id number], 04/27/2024 17:21:27 04/25/19 25 04/27/2024 arthr itis panel AUBREE screen NEGATI VE negati ve Perfo rmed by Bio-R ad enzym e immun oassa y Not Available [facility] [address] [place] [address], [id number], 04/27/2024 17:21:27 04/25/19 25 04/28/2024 anca panel , serum anca, complete Not Available [facility] [address] [place] [address], [id number], 04/28/2024 19:38:06 04/25/19 25 04/28/2024 anca panel , serum myeloperoxid ase Ab <0.2 units 0.0-0. 9 Not Available [facility] [address] [place] [address], [id number], 04/28/2024 19:38:06 04/25/19 25 04/28/2024 anca panel , serum proteinase-3 Ab, anca <0.2 units 0.0-0. 9 Not Available [facility] [address] [place] [address], [id number], 04/28/2024 19:38:06 04/25/19 25 04/28/2024 anca panel , serum C-anca titer <1:20 titer neg:<1 :20 Not Available [facility] [address] [place] [address], [id number], 04/28/2024 19:38:06 04/25/19 25 04/28/2024 anca panel , serum P-anca titer <1:20 titer neg:<1 :20 The prese nce of posit perla fluor escen ce exhib iting P-ANC A or C-ANC A patte rns alone is not speci fic for the diagn osis of Wegen er's Granu lomat osis (WG) or micro scopi c polya ngiit is. Decis ions about treat ment shoul d not be based solel y on ANCA IFA resul ts. The Inter natio nal ANCA Group Conse nsus recom mends follo w up testi ng of posit perla sera with both UT-3 and MPO-A NCA enzym e immun oassa ys. As many as 5% serum sampl es are posit perla only by EIA. Ref. AM J Clin Patho l 1999; 111:5 07-51 3. Not Available [facility] [address] [place] [address], [id number], 04/28/2024 19:38:06 04/25/19 25 04/28/2024 anca panel , serum atypical P anca titer <1:20 titer neg:<1 :20 The atypi edwina pANCA patte rn has been obser paolo in a signi fican t perce ntage of patie nts with ulcer ative colit is, prima ry scler osing chola ngiti s and autoi mmune hepat itis. Not Available [facility] [address] [place] [address], [id number], 04/28/2024 19:38:06 04/25/19 25 04/30/2024 antip hosph olipi d antib milad panel , serum antiphosphol ipid Ab panel Not Available [facility] [address] [place] [address], [id number], 04/30/2024 12:40:48 04/25/19 25 04/30/2024 antip hosph olipi d antib milad panel , serum B2-glycoprot ein I IgG Ab <9 gpi_I gG 0-20 The refer ence inter judy refle cts a 3SD or 99th perce ntile inter judy, which is thoug ht to repre sent a poten tiall y clini joel signi fican t resul t in accor dance with the Inter natio nal Conse nsus State ment on the class ifica tion crite madan for defin itive antip hosph olipi d syndr ome (APS) . J Throm b Haem 2006; 4:295 -306. Not Available [facility] [address] [place] [address], [id number], 04/30/2024 12:40:48 04/25/19 25 04/30/2024 antip hosph olipi d antib milad panel , serum B2-glycoprot ein I IgM Ab <9 gpi_I gM 0-32 The refer ence inter judy refle cts a 3SD or 99th perce ntile inter judy, which is thoug ht to repre sent a poten tiall y clini joel signi fican t resul t in accor dance with the Inter natio nal Conse nsus State ment on the class ifica tion crite madan for defin itive antip hosph olipi d syndr ome (APS) . J Throm b Haem 2006; 4:295 -306. Not Available [facility] [address] [place] [address], [id number], 04/30/2024 12:40:48 04/25/19 25 04/30/2024 antip hosph olipi d antib milad panel , serum B2-glycoprot ein I IgA Ab <9 gpi_I gA 0-25 The refer ence inter judy refle cts a 3SD or 99th perce ntile inter jduy, which is thoug ht to repre sent a poten tiall y clini joel signi edilma t resul t in accor dance with the Inter natio nal Conse nsus State ment on the class ifica tion crite madan for defin itive antip hosph olipi d syndr ome (APS) . J Throm b Haem 2006; 4:295 -306. Not Available [facility] [address] [place] [address], [id number], 04/30/2024 12:40:48 04/25/19 25 04/30/2024 antip hosph olipi d antib milad panel , serum phosphatidyl serine IgA <1 0-19 Not Available [facility] [address] [place] [address], [id number], 04/30/2024 12:40:48 04/25/19 25 04/30/2024 antip hosph olipi d antib milad panel , serum phosphatidyl serine IgG 9 units 0-30 Not Available [facility] [address] [place] [address], [id number], 04/30/2024 12:40:48 04/25/19 25 04/30/2024 antip hosph olipi d antib milad panel , serum phosphatidyl serine IgM 25 units 0-30 Not Available [facility] [address] [place] [address], [id number], 04/30/2024 12:40:48 04/25/19 25 04/30/2024 antip hosph olipi d antib milad panel , serum cardiolipin IgM <9 mpl_U /mL 0-12 Negat perla: <13 Indet ermin ate: 13 - 20 Low-M ed Posit perla: >20 - 80 High Posit perla: >80 Not Available [facility] [address] [place] [address], [id number], 04/30/2024 12:40:48 04/25/19 25 04/30/2024 antip hosph olipi d antib milad panel , serum cardiolipin IgA <9 apl_U /mL 0-11 Negat perla: <12 Indet ermin ate: 12 - 20 Low-M ed Posit perla: >20 - 80 High Posit perla: >80 Not Available [facility] [address] [place] [address], [id number], 04/30/2024 12:40:48 04/25/19 25 04/30/2024 antip hosph olipi d antib milad panel , serum cardiolipin IgG <9 gpl_U /mL 0-14 Negat perla: <15 Indet ermin ate: 15 - 20 Low-M ed Posit perla: >20 - 80 High Posit perla: >80 Not Available [facility] [address] [place] [address], [id number], 04/30/2024 12:40:48 04/25/19 25 05/01/2024 facto r V mutat ion, blood or tissu e factor V (leiden) Not Available [facility] [address] [place] [address], [id number], 05/01/2024 15:41:24 04/25/19 25 05/01/2024 facto r V mutat ion, blood or tissu e factor V (leiden) result Resul t: c.160 1G>A (p.Ar g534G ln) - Not Detec yaw . This resul t is not assoc iated with an incre ased risk for venou s throm boemb olism . See Addit ional Clini edwina Infor matio n and Comme nts. Addit ional Clini edwina Infor matio n: Venou s throm boemb olism is a multi facto rial disea se influ enced by dejah ic, envir onmen tracy, and circu mstan tial risk facto rs. The c.160 1G>A (p. Arg53 4Gln) varia nt in the F5 gene, commo nly refer red to as Facto r V Leide n, is a dejah ic risk facto r for venou s throm boemb olism . Heter ozygo us sumaya ers of this varia nt have a 6- to 8-fol d incre ased risk for venou s throm boemb olism . Indiv idual s homoz ygous for this varia nt (ie, with a copy of the varia nt on each chrom osome ) have an appro ximat rian 80-fo ld incre ased risk for venou s throm boemb olism . Indiv idual s who carry both a c.*97 G>A varia nt in the F2 gene and Facto r V Leide n have an appro ximat rian 20-fo ld incre ased risk for venou s throm boemb olism . Risks are likel y to be even highe r in more compl ex genot ype combi natio ns invol ving the F2 c.*97 G>A varia nt and Facto r V Leide n (PMID : [id number]). Addit ional risk facto rs inclu de but are not limit ed to: defic iency of prote in C, prote in S, or antit hromb in III, age, male sex, perso nal or famil y histo ry of deep vein throm boemb olism , smoki ng, surge ry, prolo nged immob iliza tion, malig nant neopl asm, tamox ifen treat ment, ralox ifene treat ment, oral contr acept perla use, hormo ne repla cemen t thera py, and pregn marshal. Manag ement of throm botic risk and throm botic event s shoul d follo w estab lishe d guide lines and fit the clini edwina circu mstan ce. This resul t canno t predi ct the occur rence or recur rence of a throm botic event . . Comme nt: Dejah ic couns aundrea is recom daren d to discu ss the poten tial clini edwina impli catio ns of posit perla resul ts, as well as recom menda tions for testi ng famil y membe rs. . Dejah ic Coord inato rs are avail able for healt h care provi ders to discu ss resul ts at [phone] ). . Test Detai ls: Varia nt Ann zed: c.160 1G>A (p. Arg53 4Gln) , refer red to as Facto r Amy martinez . Metho ds/Li mitat ions: DNA ann sis of the F5 gene (NM_0 22057 .[id number]) was perfo rmed by PCR ampli ficat ion follo wed by restr ictio n enzym e ann sis. The diagn ostic sensi tivit y is >99%. Resul ts must be combi bridget with clini edwina infor matio n for the most accur ate inter preta tion. Molec ular- based testi ng is highl y accur ate, but as in any labor atory test, diagn ostic error s may occur . False posit perla or false negat perla resul ts may occur for reaso ns that inclu de dejah ic varia nts, blood trans fusio ns, bone marro w trans plant ation , somat ic or tissu e-spe cific mosai cism, misla beled sampl es, or jody eous repre senta tion of famil y relat ionsh ips. . This test was devel oped and its perfo rmanc e patricia cteri stics deter mined by [facility]. It has not been clear ed or appro paolo by the Food and Drug Admin istra tion. . Refer ences : Bebo S, Tree steve AK, Camron Steve, Pineda WW, Pedro in JH; [facility] Profe ssion al Pract ice and Guide lines Commi ttee. Adden dum: Andrey wells Colle ge of Medic al Dejah ics conse nsus state ment on facto r V Linn n mutat ion testi ng. [facility]. 2020May 24. doi: 10.10 /s4 1436- 021-0 1108- x. PMID: 14707 767. . Danny jacobs JL. Facto r V Leide n Throm bophi ariane. 1998August 02 (Upda yaw 2017Mar 25). In: Nigel MP, Zee cruz HH, Sherwin RA, et al., stephy rs. GeneR ibrahima s(R) (Inte rnet) . Sharita de jesus ([place]): Unive rsity of Sharita Petit; 1992- 2020. Avail able from: https ://ww w.ncb i.nlm .nih. gov/b ooks/ NBK13 68/ . Henry S, Tree r AK, Vern X, Eduardo B, Spect or EB, Tatiana P, Allison horne CS; [facility] Labor atory Quali ty Assur ance Commi ttee. Venou s throm boemb olism labor atory testi ng (fact or V Leide n and facto r II c.*97 G>A), 2018 updat e: a techn ical stand gideon of the Andrey Villar ge of Medic al Dejah ics and Genom ics ([facility] ). De[facility] Med. 2018 Feb;2 012) :1489 -1498 . doi: 10.10 /s4 1436- 018-0 322-z . Epub 2017Dec 24. PMID: 38971 698. Not Available [facility] [address] [place] [address], [id number], 05/01/2024 15:41:24 04/25/19 25 04/27/2024 lupus antic oagul ant aPTT + dRVVT scree gee panel w refle x PTT (lac) 29.4 sec 0.0-43 .5 Not Available [facility] [address] [place] [address], [id number], 05/02/2024 10:26:47 04/25/19 25 04/27/2024 lupus antic oagul ant aPTT + dRVVT scree gee panel w refle x drvvt screen 37.9 sec 0.0-47 .0 Not Available [facility] [address] [place] [address], [id number], 05/02/2024 10:26:47 04/25/19 25 04/27/2024 lupus antic oagul ant aPTT + dRVVT scree gee panel w refle x interpretati on;643 COMMEN T: NO LUPUS ANTICO AGULAN T WAS DETECT ED. Not Available [facility] [address] [place] [address], [id number], 05/02/2024 10:26:47 04/25/19 25 05/02/2024 lupus antic oagul ant aPTT + dRVVT scree gee panel w refle x lupus anticoag. profile Not Available [facility] [address] [place] [address], [id number], 05/02/2024 10:26:47 04/25/19 25 05/02/2024 lupus antic oagul ant aPTT + dRVVT scree gee panel w refle x PTT-la mix NOT PERFRM D Not Available [facility] [address] [place] [address], [id number], 05/02/2024 10:26:47 04/25/19 25 05/02/2024 lupus antic oagul ant aPTT + dRVVT scree gee panel w refle x drvvt mix NOT PERFRM D Not Available [facility] [address] [place] [address], 16419, 05/02/2024 10:26:47 04/25/19 25 05/02/2024 lupus antic oagul ant aPTT + dRVVT scree gee panel w refle x hexagonal phospholipid NOT PERFRM D Not Available [facility] [address] [place] [address], [id number], 05/02/2024 10:26:47 04/25/19 25 05/02/2024 lupus antic oagul ant aPTT + dRVVT scree gee panel w refle x PTT-la incubated mix NOT PERFRM D Not Available [facility] [address] [place] [address], 16481, 05/02/2024 10:26:47 04/25/19 25 05/02/2024 lupus antic oagul ant aPTT + dRVVT scree gee panel w refle x drvvt confirm NOT PERFRM D Not Available [facility] [address] [place] [address], [id number], 05/02/2024 10:26:47 04/25/19 25 04/27/2024 antit hromb in Ag, quant itati ve, plate let poor plasm a antithrombin III Ag qt 79 % 72-124 This test was kehinde davis and its perfo rmanc e patricia cteri stics deter mined by [facility]. It has not been clear ed or appro paolo by the Food and Drug Admin istra tion. Not Available [facility] [address] [place] [address], [id number], 05/02/2024 10:26:49 04/25/19 25 05/02/2024 antit hromb in Ag, quant itati ve, plate let poor plasm a antithr. III panel Not Available [facility] [address] [place] [address], [id number], 05/02/2024 10:26:49 04/25/19 25 05/02/2024 antit hromb in Ag, quant itati ve, plate let poor plasm a antithr act. 135 % Refer ence inter judy: 75-13 5% Direc t Xa inhib itor antic oagul ants such as rivar oxaba n, apixa ban and edoxa ban will lead to spuri ously eleva yaw antit hromb in activ ity level s possi susu maski ng a defic iency . Not Available [facility] [address] [place] [address], [id number], 05/02/2024 10:26:49 04/25/19 04/27/2024 lupus antic oagul ant aPTT + dRVVT scree gee panel w refle x lupus anticoag. profile Not Available [facility] [address] [place] [address], [id number], 04/27/2024 04:36:30 04/25/19 25 04/27/2024 lupus antic oagul ant aPTT + dRVVT scree gee panel w refle x PTT (lac) 29.4 sec 0.0-43 .5 Not Available [facility] [address] [place] [address], 23742, 04/27/2024 04:36:30 04/25/1904/27/2024 lupus antic oagul ant aPTT + dRVVT scree gee panel w refle x drvvt screen 37.9 sec 0.0-47 .0 Not Available [facility] [address] [place] [address], 23320, 04/27/2024 04:36:30 04/25/19 25 04/27/2024 lupus antic oagul ant aPTT + dRVVT scree gee panel w refle x interpretati on;643 Commen t: No lupus antico agulan t was detect ed. Not Available [facility] [address] [place] [address], [id number], 04/27/2024 04:36:30 04/25/1904/27/2024 lupus antic oagul ant aPTT + dRVVT scree gee panel w refle x PTT-la mix PENDIN G Not Available [facility] [address] [place] [address], [id number], 04/27/2024 04:36:30 04/25/19 25 04/27/2024 lupus antic oagul ant aPTT + dRVVT scree gee panel w refle x drvvt mix PENDIN G Not Available [facility] [address] [place] [address], [id number], 04/27/2024 04:36:30 04/25/19 25 04/27/2024 lupus antic oagul ant aPTT + dRVVT scree gee panel w refle x hexagonal phospholipid PENDIN G Not Available [facility] [address] [place] [address], [id number], 04/27/2024 04:36:30 04/25/19 25 04/27/2024 lupus antic oagul ant aPTT + dRVVT scree gee panel w refle x PTT-la incubated mix PENDIN G Not Available [facility] [address] [place] [address], 24514, 04/27/2024 04:36:30 04/25/19 25 04/27/2024 lupus antic oagul ant aPTT + dRVVT scree gee panel w refle x drvvt confirm PENDIN G Not Available [facility] [address] [place] [address], 75215, 04/27/2024 04:36:30 04/25/19 25 04/27/2024 antit hromb in Ag, quant itati ve, plate let poor plasm a antithr. III panel Not Available [facility] [address] [place] [address], [id number], 04/27/2024 03:38:19 04/25/19 25 04/27/2024 antit hromb in Ag, quant itati ve, plate let poor plasm a antithr act. PENDIN G Not Available [facility] [address] [place] [address], [id number], 04/27/2024 03:38:19 04/25/19 25 04/27/2024 antit hromb in Ag, quant itati ve, plate let poor plasm a antithrombin III Ag qt 79 % 72-124 This test was devel oped and its perfo rmanc e patricia cteri stics deter mined by [facility]. It has not been clear ed or appro paolo by the Food and Drug Admin istra tion. Not Available [facility] [address] [place] [address], [id number], 04/27/2024 03:38:19 04/25/19 25 04/25/2024 arthr itis panel arthritis panel Not Available [facility] [address] [place] [address], 14671, 04/25/2024 19:03:10 04/25/19 25 04/25/2024 arthr itis panel uric acid 3.3 mg/dL 2.3-6. 6 Not Available [facility] [address] [place] [address], 08748, 04/25/2024 19:03:10 04/25/19 25 04/25/2024 arthr itis panel sed rate 5 mm/HR 0 - 20 Not Available [facility] [address] [place] [address], 83203, 04/25/2024 19:03:10 04/25/19 25 04/25/2024 arthr itis panel AUBREE screen PENDIN G Not Available [facility] [address] [place] [address], 47019, 04/25/2024 19:03:10 04/25/19 25 04/25/2024 arthr itis panel rf 8.0 IU/mL <3.5-1 4 Not Available [facility] [address] [place] [address], 50503, 04/25/2024 19:03:10 04/25/19 25 04/25/2024 arthr itis panel ccp antibody, IgG <0.54 U/mL <=4.9 Not Available [facility] [address] [place] [address], [id number], 04/25/2024 19:03:10 04/25/19 25 04/25/2024 arthr itis panel arthritis panel Not Available [facility] [address] [place] [address], [id number], 04/25/2024 18:37:43 04/25/19 25 04/25/2024 arthr itis panel uric acid 3.3 mg/dL 2.3-6. 6 Not Available [facility] [address] [place] [address], 24526, 04/25/2024 18:37:43 04/25/19 25 04/25/2024 arthr itis panel sed rate 5 mm/HR 0 - 20 Not Available [facility] [address] [place] [address], 03839, 04/25/2024 18:37:43 04/25/19 25 04/25/2024 arthr itis panel AUBREE screen PENDIN G Not Available [facility] [address] [place] [address], 24732, 04/25/2024 18:37:43 04/25/19 25 04/25/2024 arthr itis panel rf 8.0 IU/mL <3.5-1 4 Not Available [facility] [address] [place] [address], 70150, 04/25/2024 18:37:43 04/25/19 25 04/25/2024 arthr itis panel ccp antibody, IgG PENDIN G Not Available [facility] [address] [place] [address], 63262, 04/25/2024 18:37:43 04/25/19 25 04/25/2024 arthr itis panel arthritis panel Not Available [facility] [address] [place] [address], 05178, 04/25/2024 18:34:48 04/25/19 25 04/25/2024 arthr itis panel uric acid 3.3 mg/dL 2.3-6. 6 Not Available [facility] [address] [place] [address], 08795, 04/25/2024 18:34:48 04/25/19 25 04/25/2024 arthr itis panel sed rate 5 mm/HR 0 - 20 Not Available [facility] [address] [place] [address], 05787, 04/25/2024 18:34:48 04/25/19 25 04/25/2024 arthr itis panel AUBREE screen PENDIN G Not Available [facility] [address] [place] [address], 27333, 04/25/2024 18:34:48 04/25/19 25 04/25/2024 arthr itis panel rf PENDIN G Not Available [facility] [address] [place] [address], 66274, 04/25/2024 18:34:48 04/25/19 25 04/25/2024 arthr itis panel ccp antibody, IgG PENDIN G Not Available [facility] [address] [place] [address], 11018, 04/25/2024 18:34:48 04/25/19 25 04/25/2024 arthr itis panel arthritis panel Not Available [facility] [address] [place] [address], 96847, 04/25/2024 18:16:55 04/25/19 25 04/25/2024 arthr itis panel uric acid PENDIN G Not Available [facility] [address] [place] [address], 62966, 04/25/2024 18:16:55 04/25/19 25 04/25/2024 arthr itis panel sed rate 5 mm/HR 0 - 20 Not Available [facility] [address] [place] [address], 75866, 04/25/2024 18:16:55 04/25/19 25 04/25/2024 arthr itis panel AUBREE screen PENDIN G Not Available [facility] [address] [place] [address], 39006, 04/25/2024 18:16:55 04/25/19 25 04/25/2024 arthr itis panel rf PENDIN G Not Available [facility] [address] [place] [address], 05730, 04/25/2024 18:16:55 04/25/19 25 04/25/2024 arthr itis panel ccp antibody, IgG PENDIN G Not Available [facility] [address] [place] [address], 33658, 04/25/2024 18:16:55 06/08/19 25 05/24/2024 visua l evoke d poten tial (PROC ) No observ ation record ed. [email or web address] [facility] ([facility]) - Central Scheduling [address] [place] [address], 07661, 06/08/2024 06:12:43 Result Notes None recorded. 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 366351678 Active 2023 Elizabeth moraes [facility] 5 22:27:45 MRI scan abnormal 465451803 Active 2023 [facility] 5 22:27:42 Mass lesion of brain 754029934 Active 2023 [facility] 5 22:27:38 Ischemic stroke 728614480 Active 2023 [facility] 5 22:27:36 Intracrania l aneurysm 414437504 Active 2023 Bisi Figueroa APRN, DNP, INVOICE MACHINE OPERATOR [address] [place] [address], [phone] 3, [facility] 4 12:05:53 Cervical radiculopat hy 63280252 Active 2023 Bisi Figueroa APRN, DNP, INVOICE MACHINE OPERATOR [address] [place] [address], [phone] 3, [facility] 4 12:06:08 Headache 22984301 Active 2023 Elizabeth Tolbert null, [facility] 5 22:27:19 Intracrania l meningioma 025147372 Active 2023 [facility] 5 22:27:32 Impaired cognition 161287582 Active 2023 Jesus Alberto Avendaño MD [address] [place] [address], [phone] 3, [facility] 5 15:06:06 Cerebral infarction 642878851 Active 2024 [facility]delicia Veronicae [facility] 5 22:27:13 Imaging result abnormal 171190263 Active 2024 [facility] 5 22:27:48 Cervical post-anish ctomy syndrome 888989983 Active 2024 Elizabeth Jeremíase null, [facility] 5 22:27:16 Pain of bilateral eyes 6985940366996 09 Active 2024 Elizabeth Lacterelle null, [facility] 5 14:28:05 Visual field defect 23755903 Active 2024 Elizabeth Jeremíase null, [facility] 5 14:28:08 Migraine 68625557 Active 2024 Elizabeth Tolbert null, [facility] 5 14:28:02 Problem Notes Documentation Provider Name and Address Organization Details Recorded Time [facility] [address] [place] [address] Kenyetta Saucedo 49yo F 1975 #[id number] 04/04/2024 DeaMohamud Gilbert MD, Kenyetta Saucedo was seen in our office today 04/04/2024, and a copy of that evaluation is enclosed. Thank you for allowing us to participate in the care of your patient. Please contact us with any questions. Sincerely, Electronically Signed by: MINH RAMIREZ MD, MS Encounter Reason/Date Opinion regarding Vasculitis and prior stroke on MRI 04/04/2024 - 02:30PM - [facility] ([place])ProblemsProblems not reviewed (last reviewed 02/29/2024) Intracranial meningioma - Onset: 02/23/2024 Impaired cognition - Onset: 03/01/2024 Benign intracranial hypertension - Onset: 10/29/2023 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 - Onset: 10/29/2023 Ischemic stroke - Onset: 11/24/2023 Cerebral infarction - Onset: 04/04/2024 Intracranial aneurysm - Onset: 01/12/2024 Cervical radiculopathy - Onset: 01/12/2024 Headache - Onset: 02/07/2024 Mass lesion of brain - Onset: 11/24/2023 MRI scan abnormal - Onset: 11/10/2023 Allergies Allergies not reviewed (last reviewed 02/28/2024) TYLENOL W CODEINE: Dyspnea - Reaction: Shortness of breath; Medications Reviewed Medications NameDate Source acetaZOLAMIDE ER 500 mg capsule,extended releaseTAKE 2 CAPSULE TWICE A DAY12/20/23 filled surescripts fenofibrate 160 mg /21/24 filled surescripts gabapentin 800 mg tabletTake 1 tablet(s) 3 times a day by oral route.10/29/23 entered Pranav Bañuelos indomethacin 25 mg capsuleTake 1 capsule(s) 3 times a day by oral route as needed.04/04/24 entered Patricia Corona nortriptyline 10 mg capsuleTake 1 capsule QHS for 1 week, then 2 capsules QHS.03/13/24 prescribed Santa Gilbert MD Ozempic 2 mg/dose (8 mg/3 mL) subcutaneous pen injectorINJECT 2MG SUBCUATENOUSLY EVERY WEEK02/05/24 filled surescripts potassium chloride 20 mEq oral packetTake 1 packet(s) 4 times a day by oral route.10/29/23 entered Pranav Bañuelos rosuvastatin 10 mg tabletTake 1 tablet(s) every day by oral route.01/10/24 filled surescripts tiZANidine 4 mg tabletTake 1 tablet(s) every 6 hours by oral route.10/29/23 entered Pranav Bañuelos Family HistoryFamily History not reviewed (last reviewed 02/22/2024) Mother - Arthritis - Family history of malignant neoplasm - Chronic obstructive pulmonary disease - Heart disease - Hypertensive disorder Maternal Grandfather - Family history of malignant neoplasm Paternal Grandfather - Family history of malignant neoplasm Maternal Grandmother - Family history of malignant neoplasm - Cerebrovascular accident Paternal Grandmother - Family history of malignant neoplasm - Diabetes mellitus - Heart disease - Hypertensive disorder - Hypercholesterolemia Father - Diabetes mellitus - Heart disease - Hypertensive disorder - Hypercholesterolemia - Kidney disease - Cerebrovascular accident Sister - Diabetes mellitus - Heart disease - Hypertensive disorder Social HistorySocial History not reviewed (last reviewed 02/28/2024) Substance UseDo you or have you ever smoked tobacco?: Former smokerWhen did you quit smoking?: 2013What is your level of alcohol consumption?: OccasionalHow many times per week do you consume alcohol?: Less than 1 time per weekDo you use any illicit or recreational drugs?: NoWhat is your level of caffeine consumption?: OccasionalWhat was the date of your most recent tobacco screening?: 03/28/2024Diet and ExerciseHow many times per week do you exercise?: Less than 1 time per weekEducation and OccupationAre you currently employed?: NoWhat is your occupation?: DisabledFormer smoker, Type: Chronic Last Edited: 06 Oct 2018 1:32PM ICD9 Code: V15.82 Last Reviewed Date: [id number] SnomedCode: [id number] ICD10 Code: Z87.891 Surgical HistorySurgical & Procedure History not reviewed (last reviewed 10/29/2023) Colonoscopy with biopsy - Colonoscopy (camera from below into colon) delivery - Additional HistoryNone recordedHistory of Present IllnessWhile on the patient is referred here for evaluation of possible vasculitis, as well as strokes seen on the MRI, she also has a history of pseudotumor cerebri. Her protracted history was reviewed along with all the imaging. I have access to a MRI of the brain from several years ago and one from now, as well as access to a diagnostic cerebral angiogram from [place] in 2017. The angiogram shows areas of skip lesions suggestive of possible vasospasm or vasculitis in the medium and small vessels bilaterally. The MRI of the brain showing bilateral encephalomalacia in the parietal lobes and an old ischemic infarction in the right occipital lobe. The patient tells me that in 2017, when she was admitted to the ICU at [place], her symptoms started with a thunderclap headache. We looked at her medical history and she at that time was taking Effexor and Wellbutrin. The patient has a history of pseudotumor cerebri, as documented by funduscopic examination by ENT and by neurology, she has been on acetazolamide which improved her vision and slightly improved her headaches but not completely. She also suffers from recurrent daily headaches which at times have migrainous features. She has been on rosuvastatin 10 mg with an LDL of 60. She was started recently on aspirin 81 mg daily. Of relevance in the MRI has a completely clean FLAIR sequence without any single white matter lesion on the FLAIR sequences, especially in the bilateral subcortical white matter. The patient is interested in answered, future planning, and interested in knowing whether she has vasculitis or now, she also has been suffering from some cognitive decline, she is having trouble multitasking, sometimes she forgets words.Review of SystemsNone recordedPhysical ExamNeurologic Exam Mental StatusOriented to person, place, and time.Attention: normal.Speech: speech is normalLevel of consciousness: alertAble to name object. Able to repeat. Normal comprehension. Cranial Nerves CN IIVisual fuller full to confrontation. CN III, IV, VIPupils are equal, round, and reactive to light.Extraocular motions are normal. CN VFacial sensation intact. CN VIIFacial expression full, symmetric. CN VIIICN VIII normal. CN XICN XI normal. CN XIICN XII normal. Motor Exam StrengthStrength 5/5 throughout. Normal Gait and CoordinationProcedure DocumentationNone recordedAssessment/PlanSummary of my assessment: 1. RCVS in 2017, with bilateral parietal and R occipital ischemic insults2. Pseudotumor cerebri3. Chronic daily headaches / migraines4. Mild coginitive deficits5. No suspicion for Vasculitis. >>>>>>>>>>>>>>>>>>>>>>>>>>>>>> >>>>>>>>>>>>>>In my assessment, the patient does not have vasculitis of the central nervous system. It is likely that she suffered in 2017 a monophasic episode of RCVS ( reversible cerebrovascular vasoconstriction syndrome); there are several historic points to substantiate that:1. diagnostic angiogram from [place] shows on series 10 with a left vert injection, areas of caliber change with skip lesions, with almost poor perfusion to no perfusion in the right DEMURRAGE CLERK territory. A corresponding; she has right occipital area of encephalomalacia probably the result of ischemia from RCVS.2. The bilateral ICA injections on the angiogram show bilateral medium and multivessel skip lesions, suggestive of vasospasm, both of them affecting the posterior divisions of the middle cerebral arteries. There are bilateral distal peripheral areas of encephalomalacia in the parietal lobe on recent MRIs, which would be suggestive of ischemia caused by vasospasm in the distal watershed beds during a monophasic episode of vasospasm or RCVS.3. The patient was on Effexor and Wellbutrin at the time of her illness in 2017, medications known to trigger for idiosyncratic reasons this illness.4. Evidence against the presence vasculitis of the central nervous system is a recently normal MRA,, normal CRP, normal ESR, but most importantly a completely normal FLAIR sequence in terms of subcortical white matter small vessel disease burden. In our experience, ASE MASTER MECHANIC vasculitis, with such a protracted course of daily headaches and prior admissions with ASE MASTER MECHANIC illness, with present with small vessel or medium vessel disease burden on MRI. In summary I think she had RCVS in 2017, which caused the peripheral 3 areas of encephalomalacia in the brain that correspond to vasospasm seen on the MRI, in the setting of SSRI/SNRI treatment. If one wishes to further confirm the absence of vasculitis, Dr Haley may elect to repeat the diagnostic angiogram and I believe show complete reversal of her skip lesions on angiography. It would be impossible for her to have ASE MASTER MECHANIC vasculitis with reversal of the intracranial findings without steroids or long-term immunotherapy. I would like to believe her diagnosis of pseudotumor cerebri, especially that it has been diagnosed by an insole beveler and I neurologist with funduscopic examination. I would urge her to continue the care for this condition under Dr. Gilbert. She could have concomitant migraine headaches, intractable headaches, and pseudotumor cerebri, all of that would fall under the care of Dr. Gilbert, she will talk to them about optimization of headache treatment. She suffers from mild cognitive changes, trouble finding her words, trouble with multitasking. I would recommend the next time she sees general neurology to have a full battery of memory testing, and help work her up for any cognitive deficits that could be retrained. The bilateral small parietal infarct could contribute to decreased cognitive function, it is not uncommon for bilateral cerebral hemispheric insults to cause cognitive deficits. Overall the patient is very well-functioning and I believe a short course of speech therapy to address her word finding difficulties and help her with multitasking activities is going to be of great benefit. I will order it accordingly. I do not see a need for the patient to return to see me.In the presence of old ischemic insults in the brain bilaterally, it would not be unreasonable to continue the low-dose aspirin which Dr. Haley started. total visit time with chart prep and documentation and counseling added up to 60min. 1.Cerebral infarction due to other hihjdkwsaJ36.89: Other cerebral infarction 2.Mild cognitive hxiiigfwilE01.84: Mild cognitive impairment of uncertain or unknown etiology Return to Office Jesus Alberto Avendaño MD for New Patient Visit 45.NEW at [address] [place] [address] Rhe[place]ology ([place]) on 04/25/2024 at 01:00 PM Terrell Joy MD for New Patient Visit 40.NEW at [address] [place]rology [facility] on 05/04/2024 at 11:00 AM Neuro Opthalmology Testing for Procedure 30.PRO at [address] Boards ([place]) on 05/04/2024 at 10:30 AM Davian Haley MD for Established Patient 20.EST at [address] Neurosurgery [facility] on 05/24/2024 at 01:00 PM Santa Gilbert MD [facility] [place] [address], [phone], [facility] 04/04/2024 19:47:50 Neuro-insole beveler Consul t Note : [facility] [address] [place] [address] Kenyetta Saucedo 49yo F 1975 #[id number] 04/04/2024 Sue Haley MD, Kenyetta Saucedo was seen in our office today 04/04/2024, and a copy of that evaluation is enclosed. Thank you for allowing us to participate in the care of your patient. Please contact us with any questions. 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 - Onset: 10/29/2023 Ischemic stroke - Onset: 11/24/2023 Cerebral infarction - Onset: 04/04/2024 Intracranial aneurysm - Onset: 01/12/2024 Cervical radiculopathy - Onset: 01/12/2024 Headache - Onset: 02/07/2024 Mass lesion of brain - Onset: 11/24/2023 MRI scan abnormal - Onset: 11/10/2023 Allergies Allergies not reviewed (last reviewed 02/28/2024) TYLENOL W CODEINE: Dyspnea - Reaction: Shortness of breath; Medications Reviewed Medications NameDate Source acetaZOLAMIDE ER 500 mg capsule,extended releaseTAKE 2 CAPSULE TWICE A DAY12/20/23 filled surescripts fenofibrate 160 mg /21/24 filled surescripts gabapentin 800 mg tabletTake 1 tablet(s) 3 times a day by oral route.10/29/23 entered Pranav Bañuelos indomethacin 25 mg capsuleTake 1 capsule(s) 3 times a day by oral route as needed.04/04/24 entered Patricia Corona nortriptyline 10 mg capsuleTake 1 capsule QHS for 1 week, then 2 capsules QHS.03/13/24 prescribed Santa Gilbert MD Ozempic 2 mg/dose (8 mg/3 mL) subcutaneous pen injectorINJECT 2MG SUBCUATENOUSLY EVERY WEEK02/05/24 filled surescripts potassium chloride 20 mEq oral packetTake 1 packet(s) 4 times a day by oral route.10/29/23 entered Pranav Bañuelos rosuvastatin 10 mg tabletTake 1 tablet(s) every day by oral route.01/10/24 filled surescripts tiZANidine 4 mg tabletTake 1 tablet(s) every 6 hours by oral route.10/29/23 entered Pranav Bañuelos Family HistoryFamily History not reviewed (last reviewed 02/22/2024) Mother - Arthritis - Family history of malignant neoplasm - Chronic obstructive pulmonary disease - Heart disease - Hypertensive disorder Maternal Grandfather - Family history of malignant neoplasm Paternal Grandfather - Family history of malignant neoplasm Maternal Grandmother - Family history of malignant neoplasm - Cerebrovascular accident Paternal Grandmother - Family history of malignant neoplasm - Diabetes mellitus - Heart disease - Hypertensive disorder - Hypercholesterolemia Father - Diabetes mellitus - Heart disease - Hypertensive disorder - Hypercholesterolemia - Kidney disease - Cerebrovascular accident Sister - Diabetes mellitus - Heart disease - Hypertensive disorder Social HistorySocial History not reviewed (last reviewed 02/28/2024) Substance UseDo you or have you ever smoked tobacco?: Former smokerWhen did you quit smoking?: 2013What is your level of alcohol consumption?: OccasionalHow many times per week do you consume alcohol?: Less than 1 time per weekDo you use any illicit or recreational drugs?: NoWhat is your level of caffeine consumption?: OccasionalWhat was the date of your most recent tobacco screening?: 03/28/2024Diet and ExerciseHow many times per week do you exercise?: Less than 1 time per weekEducation and OccupationAre you currently employed?: NoWhat is your occupation?: DisabledFormer smoker, Type: Chronic Last Edited: 06 Oct 2018 1:32PM ICD9 Code: V15.82 Last Reviewed Date: [id number] SnomedCode: 5834476 ICD10 Code: Z87.891 Surgical HistorySurgical & Procedure History not reviewed (last reviewed 10/29/2023) Colonoscopy with biopsy - Colonoscopy (camera from below into colon) delivery - Additional HistoryNone recordedHistory of Present IllnessWhile on the patient is referred here for evaluation of possible vasculitis, as well as strokes seen on the MRI, she also has a history of pseudotumor cerebri. Her protracted history was reviewed along with all the imaging. I have access to a MRI of the brain from several years ago and one from now, as well as access to a diagnostic cerebral angiogram from [facility] [place] in 2017. The angiogram shows areas of skip lesions suggestive of possible vasospasm or vasculitis in the medium and small vessels bilaterally. The MRI of the brain showing bilateral encephalomalacia in the parietal lobes and an old ischemic infarction in the right occipital lobe. The patient tells me that in 2017, when she was admitted to the ICU at [place], her symptoms started with a thunderclap headache. We looked at her medical history and she at that time was taking Effexor and Wellbutrin. The patient has a history of pseudotumor cerebri, as documented by funduscopic examination by ENT and by neurology, she has been on acetazolamide which improved her vision and slightly improved her headaches but not completely. She also suffers from recurrent daily headaches which at times have migrainous features. She has been on rosuvastatin 10 mg with an LDL of 60. She was started recently on aspirin 81 mg daily. Of relevance in the MRI has a completely clean FLAIR sequence without any single white matter lesion on the FLAIR sequences, especially in the bilateral subcortical white matter. The patient is interested in answered, future planning, and interested in knowing whether she has vasculitis or now, she also has been suffering from some cognitive decline, she is having trouble multitasking, sometimes she forgets words.Review of SystemsNone recordedPhysical ExamNeurologic Exam Mental StatusOriented to person, place, and time.Attention: normal.Speech: speech is normalLevel of consciousness: alertAble to name object. Able to repeat. Normal comprehension. Cranial Nerves CN IIVisual fuller full to confrontation. CN III, IV, VIPupils are equal, round, and reactive to light.Extraocular motions are normal. CN VFacial sensation intact. CN VIIFacial expression full, symmetric. CN VIIICN VIII normal. CN XICN XI normal. CN XIICN XII normal. Motor Exam StrengthStrength 5/5 throughout. Normal Gait and CoordinationProcedure DocumentationNone recordedAssessment/PlanSummary of my assessment: 1. RCVS in 2017, with bilateral parietal and R occipital ischemic insults2. Pseudotumor cerebri3. Chronic daily headaches / migraines4. Mild coginitive deficits5. No suspicion for Vasculitis. >>>>>>>>>>>>>>>>>>>>>>>>>>>>>> >>>>>>>>>>>>>>In my assessment, the patient does not have vasculitis of the central nervous system. It is likely that she suffered in 2017 a monophasic episode of RCVS ( reversible cerebrovascular vasoconstriction syndrome); there are several historic points to substantiate that:1. diagnostic angiogram from [facility] [place] shows on series 10 with a left vert injection, areas of caliber change with skip lesions, with almost poor perfusion to no perfusion in the right DEMURRAGE CLERK territory. A corresponding; she has right occipital area of encephalomalacia probably the result of ischemia from RCVS.2. The bilateral ICA injections on the angiogram show bilateral medium and multivessel skip lesions, suggestive of vasospasm, both of them affecting the posterior divisions of the middle cerebral arteries. There are bilateral distal peripheral areas of encephalomalacia in the parietal lobe on recent MRIs, which would be suggestive of ischemia caused by vasospasm in the distal watershed beds during a monophasic episode of vasospasm or RCVS.3. The patient was on Effexor and Wellbutrin at the time of her illness in 2017, medications known to trigger for idiosyncratic reasons this illness.4. Evidence against the presence vasculitis of the central nervous system is a recently normal MRA,, normal CRP, normal ESR, but most importantly a completely normal FLAIR sequence in terms of subcortical white matter small vessel disease burden. In our experience, ASE MASTER MECHANIC vasculitis, with such a protracted course of daily headaches and prior admissions with ASE MASTER MECHANIC illness, with present with small vessel or medium vessel disease burden on MRI. In summary I think she had RCVS in 2017, which caused the peripheral 3 areas of encephalomalacia in the brain that correspond to vasospasm seen on the MRI, in the setting of SSRI/SNRI treatment. If one wishes to further confirm the absence of vasculitis, Dr Haley may elect to repeat the diagnostic angiogram and I believe show complete reversal of her skip lesions on angiography. It would be impossible for her to have ASE MASTER MECHANIC vasculitis with reversal of the intracranial findings without steroids or long-term immunotherapy. I would like to believe her diagnosis of pseudotumor cerebri, especially that it has been diagnosed by an insole beveler and I neurologist with funduscopic examination. I would urge her to continue the care for this condition under Dr. Gilbert. She could have concomitant migraine headaches, intractable headaches, and pseudotumor cerebri, all of that would fall under the care of Dr. Gilbert, she will talk to them about optimization of headache treatment. She suffers from mild cognitive changes, trouble finding her words, trouble with multitasking. I would recommend the next time she sees general neurology to have a full battery of memory testing, and help work her up for any cognitive deficits that could be retrained. The bilateral small parietal infarct could contribute to decreased cognitive function, it is not uncommon for bilateral cerebral hemispheric insults to cause cognitive deficits. Overall the patient is very well-functioning and I believe a short course of speech therapy to address her word finding difficulties and help her with multitasking activities is going to be of great benefit. I will order it accordingly. I do not see a need for the patient to return to see me.In the presence of old ischemic insults in the brain bilaterally, it would not be unreasonable to continue the low-dose aspirin which Dr. Haley started. total visit time with chart prep and documentation and counseling added up to 60min. 1.Cerebral infarction due to other xmraprvtwR49.89: Other cerebral infarction 2.Mild cognitive sopwqegezrP29.84: Mild cognitive impairment of uncertain or unknown etiology Return to Office Jesus Alberto Avendaño MD for New Patient Visit 45.NEW at [address] [place] [address] Rheumatology ([place]) on 04/25/2024 at 01:00 PM Terrell Joy MD for New Patient Visit 40.NEW at [address] Neurology ([place]) on 05/04/2024 at 11:00 AM Neuro Opthalmology Testing for Procedure 30.PRO at [address] [place]ards ([place]) on 05/04/2024 at 10:30 AM Davian Haley MD for Established Patient 20.EST at [address] Neurosurgery ([place]) on 05/24/2024 at 01:00 PM Bisi Figueroa, RISK ANALYST, DNP, INVOICE MACHINE OPERATOR [address] [place] [address], [phone], [facility] 05/30/2024 14:08:47 Procedures Surgical History Date Name Laterality Status Provider Name and Address Organization Details Recorded Time 05/04/19 25 SC Procedure completed Terrell Joy MD [address] [place] [address], [phone], [facility] 05/04/2024 17:10:42 12/30/19 24 SC Lumbar Puncture Procedure completed Santa Gilbert MD [address] [place] [address], [phone], [facility] 12/30/2023 17:12:18 delivery completed Not Available Health Note 03/26/2024 18:27:13 Colonoscopy with biopsy completed Not Available Health Note 03/26/2024 18:27:13 Imaging Results Imaging Date Name Status LastModified by Organiz ation Details LastModified Time 05/24/2024 visual evoked potential (PROC) active [id number] [facility]) - Central Scheduling [address] [place] [address], [id number], 06/08/2024 06:12:43 Procedure Notes None recorded. Medical Equipment None Reported. Allergies Allergen ID Allergen Name Allergen Category Reaction Reaction Severity Criticality Documentation Date Start Date Code Code System Note Provider Name and Address Organization Details Recorded Time 756955 Tylenol with Codeine medicatio n dyspnea Not available Not available 04/19/20232018 64317 6 RxNorm React ion: Short ness of breat h; Not Available Not Available Not Available Medications Name Sig Start Date Stop Date Status Note LastModified by Organization Details LastModified Time prednisone 10 mg tablet 01/11 completed Not Available Not Available Not Available azithromyci n 250 mg tablet 01/11 completed Not Available Not Available Not Available acetazolami de ER 500 mg capsule,ext ended release TAKE 2 CAPSULE TWICE A DAY active Not Available Not Available No t Available tizanidine 4 mg tablet Take 1 tablet every 6 hours by oral route. active Not Available Not Available No t Available meloxicam 15 mg tablet Take 1 tablet every day by oral route. 04/04 completed Not Available Not Available Not Available potassium chloride 20 mEq oral packet Take 1 packet 4 times a day by oral route. active Not Available Not Available No t Available gabapentin 800 mg tablet Take 1 tablet 3 times a day by oral route. active Not Available Not Available No t Available furosemide 80 mg tablet TAKE 1 TABLET DAILY 04/04 completed Not Available Not Available Not Available sulfacetami de sodium 10 % eye drops 04/04 completed Not Available Not Available Not Available nortriptyli ne 10 mg capsule TAKE 2 CAPSULES DAILY AT BEDTIME active Not Available Not Available No t Available neomycin-po lymyxin-dex ameth 3.5 mg/mL-10,00 0 unit/mL-0.1 % eye drops 01/11 completed Not Available Not Available Not Available tobramycin 0.3 % eye drops 01/11 completed Not Available Not Available Not Available indomethaci n 25 mg capsule Take 1 capsule 3 times a day by oral route as needed. active Not Available Not Available No t Available mupirocin 2 % topical ointment Place a small amount on a q-tip and swab inside of nose twice daily starting 5 days prior to procedure 2024 active Not Available Not Available Not Avai lable medroxyprog esterone 150 mg/mL intramuscul ar syringe 02/27 completed Not Available Not Available Not Available Asprin Ec Low Dose 81 mg tablet,shamika yed release Take 1 tablet every day by oral route. active Not Available Not Available No t Available rosuvastati n 10 mg tablet Take 1 tablet every day by oral route. active Not Available Not Available No t Available Klor-Con M20 mEq tablet,exte nded release 04/04 completed Not Available Not Available Not Available fenofibrate 160 mg tablet active Not Available Not Available Not Available Emgality Pen 120 mg/mL subcutaneou s pen injector Inject 120 mg every 4 weeks by subcutane ous route for 30 days. 2024 active Not Available Not Available Not Avai lable Ozempic 1 mg/dose (4 mg/3 mL) subcutaneou s pen injector INJECT 1 MG UNDER SKIN WEEKLY 02/27 completed Not Available Not Available Not Available Ozempic 2 mg/dose (8 mg/3 mL) subcutaneou s pen injector INJECT 2 MG SUBCUTANE OUSLY EVERY WEEK active Not Available Not Available No t Available Vitals Date Recorded Body height Body mass index (BMI) Body weight Heart rate Oxygen saturation Oxygen saturation in Arterial blood by Pulse oximetry Systolic blood pressure Diastolic blood pressure Provider Name and Address Organization Details Last Updated DateTime 5 152.4 cm 32 kg/m2 55732.1 5 g 82 /min 96 % 96 % 100 mm[Hg] 70 mm[Hg] Patricia Corona [facility] 5 16:06:32 Date Recorded Body height Body mass index (BMI) Body weight Heart rate Oxygen saturation Oxygen saturation in Arterial blood by Pulse oximetry Pain severity - 0-10 verbal numeric rating [Score] - Reported Systolic blood pressure Diastolic blood pressure Provider Name and Address Organization Details Last Updated DateTime 5 152.4 cm 31.5 kg/m2 62220.8 1 g 80 /min 98 % 98 % 5 128 mm[Hg] 82 mm[Hg] Diana Borrego [facility] 5 14:20:16 Date Recorded Body height Body mass index (BMI) Body weight Heart rate Oxygen saturation Oxygen saturation in Arterial blood by Pulse oximetry Systolic blood pressure Diastolic blood pressure Provider Name and Address Organization Details Last Updated DateTime 5 152.4 cm 32 kg/m2 42807.1 5 g 84 /min 98 % 98 % 112 mm[Hg] 60 mm[Hg] [facility] 5 11:58:24 Date Recorded Body height Body mass index (BMI) Body weight Systolic blood pressure Diastolic blood pressure Provider Name and Address Organization Details Last Updated DateTime 05/24/2024 152.4 cm 32.6 kg/m2 30908.93 g 124 mm[Hg] 76 mm[Hg] Dianne Tejada [facility] 5 14:22:52 Date Recorded Body height Body mass index (BMI) Body weight Heart rate Oxygen saturation Oxygen saturation in Arterial blood by Pulse oximetry Systolic blood pressure Diastolic blood pressure Provider Name and Address Organization Details Last Updated DateTime 5 152.4 cm 32.4 kg/m2 05584.3 3 g 80 /min 98 % 98 % 122 mm[Hg] 64 mm[Hg] Elizabeth Tolbert [facility] 5 11:35:16 Social History Question Answer Notes LastModified by Organizat ion Details LastModified Time Tobacco Smoking Status Former Smoker Not Available Health Note 03/26/2024 18:27:14 Do You Have An Advance Directive? No [email or web address] Information not available 03/26/2024 What Is Your Level Of Alcohol Consumption? Occasional [email or web address] Information not available 03/26/2024 How Many Times Per Week Do You Consume Alcohol? Less Than 1 Time Per Week [email or web address] Information not available 03/26/2024 What Is Your Level Of Caffeine Consumption? Occasional [email or web address] Information not available 03/26/2024 Are You Currently Employed? No [email or web address] Information not available 03/26/2024 What Is Your Occupation? Disabled [email or web address] Information not available 03/26/2024 How Many Times Per Week Do You Exercise? Less Than 1 Time Per Week [email or web address] Information not available 03/26/2024 When Did You Quit Smoking? 2013 [email or web address] Information not available 03/26/2024 What Was The Date Of Your Most Recent Tobacco Screening? 03/28/2024 [email or web address] Information not available 03/26/2024 What Is Your Relationship Status? [email or web address] Information not available 03/26/2024 Do You Use Any Illicit Or Recreational Drugs? No [email or web address] Information not available 03/26/2024 Sex: Unknown Functional Status Question Answer Note LastModified by Organization D etails LastModified Time What is your exercise level? None [email or web address] Information not available 03/26/2024 Mental Status None recorded. Family History Relationship Description Onset Age of this Age Resolved Age Notes LastModified by Organization Details LastModified Time Mother Arthritis [email or web address] Not available 03/26/2024 18:27:13 Mother Family history of malignant neoplasm [email or web address] Not available 2024 18:27:13 Mother Chronic obstructive pulmonary disease [email or web address] Not available 2024 18:27:13 Mother Heart disease [email or web address] Not available 2024 18:27:13 Mother Hypertensive disorder [email or web address] Not available 2024 18:27:13 Maternal Grandfather Family history of malignant neoplasm [email or web address] Not available 2024 18:27:13 Paternal Grandfather Family history of malignant neoplasm [email or web address] Not available 2024 18:27:13 Maternal Grandmother Family history of malignant neoplasm [email or web address] Not available 2024 18:27:13 Maternal Grandmother Cerebrovascu lar accident [email or web address] Not available 07/2024 18:27:13 Paternal Grandmother Family history of malignant neoplasm [email or web address] Not available 2024 18:27:13 Paternal Grandmother Diabetes mellitus [email or web address] Not available 2024 18:27:13 Paternal Grandmother Heart disease [email or web address] Not available 2024 18:27:13 Paternal Grandmother Hypertensive disorder [email or web address] Not available 2024 18:27:13 Paternal Grandmother Hypercholest erolemia [email or web address] Not available 2024 18:27:13 Father Diabetes mellitus [email or web address] Not available 2024 18:27:13 Father Heart disease [email or web address] Not available 2024 18:27:13 Father Hypertensive disorder [email or web address] Not available 2024 18:27:13 Father Hypercholest erolemia [email or web address] Not available 2024 18:27:13 Father Kidney disease [email or web address] Not available 2024 18:27:13 Father Cerebrovascu lar accident [email or web address] Not available 07/2024 18:27:13 Sister Diabetes mellitus [email or web address] Not available 2024 18:27:13 Sister Heart disease [email or web address] Not available 2024 18:27:13 Sister Hypertensive disorder [email or web address] Not available 2024 18:27:13 Medical History Condition Response Anxiety Disorder N Diabetes Y Attention-deficit Hyperactivity Disorder N Bleeding Disorder N High Blood Pressure N Arthritis N Hyperlipidemia N Cancer N Stroke Y Thyroid Problems N COPD N Asthma N Depression N Anemia N Seizures N Heart Disease N Fibromyalgia N Osteoporosis N Kidney Disease N Gynecological HistoryNo gynecological history recorded. Obstetrics History GPAL:G 0 P 0 0 0 0 Immunizations Vaccine Type Date Status Note Provider Nam e and Address Organization Details Recorded Time COVID-19, mRNA, LNP-S, PF, 30 mcg/0.3 mL dose 12/09/2020 completed Elizabeth Tolbert [facility] 05/01/2024 22:28:42 COVID-19, mRNA, LNP-S, PF, 30 mcg/0.3 mL dose 12/30/2020 completed Elizabethdelicia moraes, [facility] 05/01/2024 22:28:42 Tdap 11/04/2020 completed Elizabeth Tomasz moraes, [facility] 05/01/2024 22:28:42 Past Encounters Encounter ID Performer Location Encounter Start Date Encounter Closed Date Diagnosis/Indication Diagnosis SNOMED-CT Code Diagnosis ICD10 Code Diagnosis Note [id number] Pranav Bañuelos [address] [place] [address] [place]rology ([place]) [address] [place] [address],[address] [place] [address] 10/29/2023 14:51:17 10/29/2023 15:47:52 Benign intracranial hypertension 50802270 G93.2 Papilledem a - 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 122745207 H47.11 [id number] Iraida patel MD [address] [place] [address] Neurosurg [place] ([place]) [address] [place] [address],[address] [place] [address] 12/09/2023 10:34:43 12/09/2023 17:14:47 Mass lesion of brain 377236815 G93.89 [id number] Santa Gilbert MD [address] [place] [address] Neurology ([place]) [address] [place] [address],[address] [place] [address] 12/30/2023 14:28:33 12/30/2023 17:15:57 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 [id number] H47.11 [id number] Bisi Figueroa, RISK ANALYST, DNP, INVOICE MACHINE OPERATOR [facility] Neurosurg [place] ([place]) [address] [place] [phone] 01/12/2024 10:04:58 01/21/2024 06:08:41 Cervical radiculopathy 13974506 M54.12 Intracranial aneurysm 12 8438727 I67.1 [id number] CFannie Maciel MD [facility] ([place]) [address] [place] [address], [place] [address] 01/12/2024 11:24:59 01/14/2024 09:52:29 Mass lesion of brain 538290303 G93.89 [id number] Lakeshia Isaac [facility] Rad Onc ([place]) [address] [place] [address] 01/12/2024 11:24:40 01/14/2024 09:52:43 Mass lesion of brain [id number] G93.89 I67.1 [id number] Bianka Maciel MD [address] Rad Onc ([place]) [address] [place] [address] 02/22/2024 14:05:29 02/23/2024 12:39:46 Intracranial meningioma [id number] D32.0 [id number] Lakeshia Isaac [facility] ([place]) [address] [place] [address] 02/22/2024 15:33:14 02/23/2024 12:22:08 Mass lesion of brain [id number] G93.89 I67.1 [id number] Davian Haley MD [address] Neurosurg mesha ([place]) [address] [place] [address] 02/28/2024 11:44:37 03/08/2024 17:08:12 Intracranial aneurysm [id number] I67.1 Intracrani al meningioma [id number] D32.0 Ischemic stroke [id number] 2 I63.9 Papilledem a - 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 [id number] H47.11 [id number] Minh Ramirez MD, MS [facility] ([place]) [address] [place] [address] 04/04/2024 15:51:51 04/04/2024 17:24:24 Cerebral infarction [id number] I63.89 Impaired cognition 73905 6002 G31.84 [id number] Jesus Alberto Avendaño MD [address] [place] [address] og ([place]) [address] [place] [address], [place] [address] 04/25/2024 13:57:50 04/26/2024 18:38:18 History of cerebrovascular accident [id number] Z86.73 Impaired cognition 99036 6002 R41.89 Imaging re sult abnormal [id number] R93.89 Cervical post-laminectomy syndrome [id number] M96.1 [id number] [facility] ([place]) [address] [place] [address] 05/04/2024 11:21:29 05/09/2024 09:27:16 Pain of bilateral eyes [id number] 77519 H57.13 Migraine [id number] G43.90 [id number] Terrell [facility] Neu[facility] ([place]) [address]th [place] [address] 06/01/2024 11:06:32 06/01/2024 12:27:26 Migraine [id number] G43.909 Health Concerns Section Related Observation LastModified by Organization Detai ls LastModified Time None Recorded Concern Status LastModified by Organization Details LastModified Time None Recorded Advance Directives Directive N: Payers Encounter Date Sequence Insurance Name Policy Number Policy Russell Covered Member ID Russell Member ID Guarantor Name 04/04/2024 1 [place] [id number] Jarred Baezzzo [id number] Kenyetta Y Dalpozzo 04/25/2024 1 [place] [id number] Jarred Larapozzo [id number] Kenyetta Y Dalpozzo 05/04/2024 1 [place] [id number] Jarred Larapozzo [id number] Kenyetta Y Dalpozzo 06/01/2024 1 [place] [id number] Jarred Burgoso [id number] Kenyetta Y Dalpozzo Notes Date Note Type Note Provider Name and Address Organization Details Recorded Time 04/04/2024 text/html While on the pat ient is referred here for evaluation of possible vasculitis, as well as strokes seen on the MRI, she also has a history of pseudotumor cerebri. Her protracted history was reviewed along with all the imaging. I have access to a MRI of the brain from several years ago and one from now, as well as access to a diagnostic cerebral angiogram from [facility] in 2017. The angiogram shows areas of skip lesions suggestive of possible vasospasm or vasculitis in the medium and small vessels bilaterally. The MRI of the brain showing bilateral encephalomalacia in the parietal lobes and an old ischemic infarction in the right occipital lobe. The patient tells me that in 2017, when she was admitted to the ICU at [facility], her symptoms started with a thunderclap headache. We looked at her medical history and she at that time was taking Effexor and Wellbutrin. The patient has a history of pseudotumor cerebri, as documented by funduscopic examination by ENT and by neurology, she has been on acetazolamide which improved her vision and slightly improved her headaches but not completely. She also suffers from recurrent daily headaches which at times have migrainous features. She has been on rosuvastatin 10 mg with an LDL of 60. She was started recently on aspirin 81 mg daily. Of relevance in the MRI has a completely clean FLAIR sequence without any single white matter lesion on the FLAIR sequences, especially in the bilateral subcortical white matter. The patient is interested in answered, future planning, and interested in knowing whether she has vasculitis or now, she also has been suffering from some cognitive decline, she is having trouble multitasking, sometimes she forgets words. Minh Ramirez MD, MS [address] [place] [address], [phone], [facility] 04/04/2024 18:03:54 04/25/2024 text/html The patient is a 49-year-old female, nonsmoker, with a history of GERD, diabetes type 2, hyperlipidemia, thunder clap headaches, migrainous headaches, intracranial hypertension, past history of cerebrovascular accidents bilaterally in the parietal lobes and right occipital lobe, who is seen today in consultation at the request of Dr. Haley, her neurosurgeon, regarding rheumatologic evaluation to rule out underlying ASE MASTER MECHANIC vasculitis. The patient is a primary care patient of Dr. Manoj Seaman. The patient presents today stating that she has had longstanding issues with chronic pain throughout her neck and shoulders and the occipital portion of her head. She has had 2 previous disk surgeries in her neck for bilateral cervical radiculopathy back in 2014 consisting of anterior and posterior cervical fusions. The patient reports today, however, in 2017 she underwent repeated visits to the hospital with complaints of headaches and various neurologic complaints. She ultimately would be discharged home from the local emergency rooms with symptomatic treatment. Unfortunately she suffered visual disturbances and severe headaches and wound up being taken by family to [facility] in 2017. There, as very well summarized in Dr. Ramirez s note, her neurologist, the patient underwent extensive workup, including angiography of the central nervous system demonstrating areas of caliber change with skip lesions with poor to little perfusion in the right DEMURRAGE CLERK territory with a corresponding right occipital area of encephalomalacia consistent with a previous ischemic event. The bilateral internal carotid artery angiography showed bilateral medium to multivessel skip lesions suggestive of vasospasm, both affecting the posterior divisions of the middle cerebral arteries with corresponding bilateral distal peripheral areas of encephalomalacia in the parietal lobe, suggestive of ischemia caused by vasospasm in the distal watershed areas. The patient has undergone more recent MRI/MRA on February 22, 2024, demonstrating a right frontal meningioma in the right frontal lobe and stable areas of chronic prior infarction in the bilateral parietal lobes and right occipital lobe. No evidence of flow abnormalities. The patient states that at this time she does experience some intermittent headaches for which she will occasionally take indomethacin. She continues on nortriptyline therapy for sleep and tizanidine to help with muscle spasms in her neck and shoulders, which are chronic. She does take acetazolamide for suspected intracranial hypertension. On further review, she, aside from her migratory chronic pains throughout the neck and shoulders, has not experienced any synovitis symptoms. She denies any fevers or unexplained weight loss. She has had no Raynaud s symptoms, orogenital ulcerations, eye inflammatory symptoms, neck swelling, lymph node swelling, cough or pleurisy, shortness of breath, chest pain or palpitations, GERD, melena or hematochezia, diarrhea or constipation. No history of peptic ulcer disease or GI bleeding. No dysuria or gross hematuria or history of hemodialysis, DVT, PE, cytopenia or seizures. The patient s family history is remarkable for both her father and maternal grandmother both of whom had cerebrovascular accidents in their early 60s. No family history of autoimmune disease of which the patient is aware. She is and seems to be a very reliable historian today on exam. I have reviewed the patient s past medical history and [employer] intake form.evelyn Avendaño MD [address] [place] [address], [phone], [facility] 05/01/2024 21:09:57 05/04/2024 text/html Kenyetta Saucedo is a 49 year old woman I m seeing in consultation regarding concerns of optic neuritis. Social History: Kenyetta is a woman from [facility]. She and her including her 2 daughters. She is accompanied today by her daughter Joel, and granddaughter Ángel. She does not smoke cigarettes, drink alcohol, use illicit drugs. Past ocular History: Other than refractive error, her past ocular history is unremarkable. Past medical History: Right frontal meningioma, RCVS in 2017, with bilateral parietal and R occipital ischemic Family History: Her mother passed from complications of lung cancer, she was a heavy smoker. Dad passed from [employer]. Clinical course:Kenyetta is a 49-year-old woman, seen in consultation regarding chronic headache, visual symptoms.She was already evaluated by Dr. Ramirez, (vascular neurology) Dr. Haley (neurosurgery). Previously seen by neurology, Dr. Gilbert. She was referred by Dr. Ramirez to rule out Optic neuritis. She suffered from severe thunderclap headache back in 2016, and was evaluated at [facility]. Diagnostic angiogram from [facility] shows areas of caliber change with skip lesions, with almost poor perfusion to no perfusion in the right DEMURRAGE CLERK territory. She has right occipital area of encephalomalacia, probably the result of ischemia from RCVS, per vascular neurology. She have been taking acetazolamide 500 mg 2 tabs BID since 2016, prescribed at [facility]. Kenyetta has had headaches since 2014. She describes mostly generalized headaches, but sometimes can be right-sided or left-sided. The headaches have increased in frequency and intensity since October 2023. At the moment, she describes daily dull headaches, and 3-4 bad headaches per week. The bad headaches can be associated with nausea, and rare intermittent photophobia. Patient states the headaches are on the right side, holding pressure against helps. Headache sometimes wrap around the head. She saw Dr. Gilbert regarding headache. Recent LP 12/30/23 with opening pressure of 20 cm, closing pressure 16 cm. LP back in 2020- CSF cells normal, glucose, and protein slightly elevated. Regarding visual symptoms, she describes difficulty with both near and distance. She feels she had more difficulty reading small prints. She denies visual field defects. She does have some eye pain that usually is more intense when she is having a bad headache. She currently weighs 164 pounds. BMI 32. Denies recent weight gain. She has had no previous exposure to high doses of vitamin A, steroids, doxycycline, tetracycline, or minocycline. Neuromaging:CTA head/neck.02/22/24-[place] brain [place] reveals Stable right frontal meningioma with local mass effect mass effect and edema in the underlying right frontal lobe. Stable areas of chronic infarction in the bilateral parietal lobes and right occipital lobe Brain MRI 02/22/24: 1. Stable right frontal meningioma with local mass effect mass effect and edemain the underlying right frontal lobe.2. Stable areas of chronic infarction in the bilateral parietal lobes and rightoccipital lobe Terrell Joy MD [facility] [place] [address], [phone], [facility] 05/08/2024 06:55:20 06/01/2024 text/html Kenyetta Saucedo is a 49 year old woman I m seeing for follow up regarding chronic headachePrevious Clinic Notes 05/04/24Social History: Kenyetta is a woman from [facility]. She and her including her 2 daughters. She is accompanied today by her daughter Joel, and granddaughter Ángel. She does not smoke cigarettes, drink alcohol, use illicit drugs.Past ocular History: Other than refractive error, her past ocular history is unremarkable.Past medical History: Right frontal meningioma, RCVS in 2017, with bilateral parietal and R occipital ischemicFamily History: Her mother passed from complications of lung cancer, she was a heavy smoker. Dad passed from COVID.Clinical course:Kenyetta is a 49-year-old woman, seen in consultation regarding chronic headache, visual symptoms.She was already evaluated by Dr. Ramirez, (vascular neurology) Dr. Haley (neurosurgery). Previously seen by neurology, Dr. Gilbert. She was referred by Dr. Ramirez to rule out Optic neuritis.She suffered from severe thunderclap headache back in 2016, and was evaluated at [facility]. Diagnostic angiogram from [facility] shows areas of caliber change with skip lesions, with almost poor perfusion to no perfusion in the right DEMURRAGE CLERK territory. She has right occipital area of encephalomalacia, probably the result of ischemia from RCVS, per vascular neurology. She have been taking acetazolamide 500 mg 2 tabs BID since 2016, prescribed at [facility].Kenyetta has had headaches since 2013. She describes mostly generalized headaches, but sometimes can be right-sided or left-sided. The headaches have increased in frequency and intensity since October 2023. At the moment, she describes daily dull headaches, and 3-4 bad headaches per week. The bad headaches can be associated with nausea, and rare intermittent photophobia. Patient states the headaches are on the right side, holding pressure against helps. Headache sometimes wrap around the head. She saw Dr. Gilbert regarding headache. Recent LP 12/30/23 with opening pressure of 20 cm, closing pressure 16 cm. LP back in 2020- CSF cells normal, glucose, and protein slightly elevated.Regarding visual symptoms, she describes difficulty with both near and distance. She feels she had more difficulty reading small prints. She denies visual field defects. She does have some eye pain that usually is more intense when she is having a bad headache.She currently weighs 164 pounds. BMI 32. Denies recent weight gain. She has had no previous exposure to high doses of vitamin A, steroids, doxycycline, tetracycline, or minocycline.Neuromagin g:CTA head/neck.02/22/24-MRI brain [place] reveals Stable right frontal meningioma with local mass effect mass effect and edema in the underlying right frontal lobe. Stable areas of chronic infarction in the bilateral parietal lobes and right occipital lobeBrain MRI 02/22/24:1. Stable right frontal meningioma with local mass effect mass effect and edemain the underlying right frontal lobe.2. Stable areas of chronic infarction in the bilateral parietal lobes and rightoccipital lobe Interval History 06/01/24Kenyetta presents for follow-up today regarding chronic headache. She have migraine.She is also seeing Dr. Haley for right frontal meningioma. On her last visit, she complained of daily headaches. I gave her a loading dose of Emgality on her last appointment, since receiving Emgality, she only had, dull headaches over the last 4 weeks. She is very happy with the result of Emgality. I also decreased the dose of Diamox on her last appointment. Terrell Joy MD [address] [facility], [place], [address], [facility] 06/06/2024 07:02:39 OBGyn Episode No OBEpisode recorded.
--- OUTSIDE RECORDS SUMMARY | 2024-06-09 12:20 | XMS_ITS | Encounter Summary ---
Author Organization [facility] Address [address] [place] [address] Care Team Providers Care Nutrition Director Name Role Phone Mina Snyder Primary Care Provider [phone] Encounter Details Date Type Department Care Team (Late st Contact Info) Description 08/27/2018 Abstract SFL CONVERSION [address] [place] [address] , Generic Conversion, Social History Tobacco Use Types Packs/Day Years Used Date Smoking Tobacco: Never Assessed Comments Unknown Sex and Gender Information Value Date Recorded Sex Assigned at Female 05/24/2024 10:16 AM DELIVERY PERSON Legal Sex Female 5:46 PM DELIVERY PERSON Gender Identity Not on file Sexual Orientation Not on file documented as of this encounter Plan of Treatment Not on file documented as of this encounter Visit Diagnoses Not on filedocumented in this encounter Care Teams Nutrition Director Relationship Specialty Start Date End Date Mina Snyder PA [address] [place] [phone] PCP - General PHYSICIAN FIELD CROP HARVEST CONTRACTOR 04/03/22 documented as of this encounter
--- OUTSIDE RECORDS SUMMARY | 2024-06-09 12:20 | XMS_ITS | Clinical Summary ---
Author Organization [facility] Address [address] [place] [address] Care Team Providers Care Senior Catering Sales Manager Name Role Phone Mina Snyder Primary Care Provider [phone] Encounters Date Type Department Care Team Description 06/06/2024 Orders Only [facility] [address] [place] [address] Terrell Joy MD 05/24/2024 10:00 AM TOOL MAINTENANCE WORKER - 05/24/2024 11:59 PM TOOL MAINTENANCE WORKER Hospital Encounter [facility] Electrodiagnostic [address] [place] [address] Terrell Joy MD Discharge Disposition: Home or Self Care (Routine Discharge) 05/24/2024 Travel from Last 3 Months Social History Tobacco Use Types Packs/Day Years Used Date Smoking Tobacco: Never Assessed Comments Unknown Sex and Gender Information Value Date Recorded Sex Assigned at Female 05/24/2024 10:16 AM TOOL MAINTENANCE WORKER Legal Sex Female 5:46 PM TOOL MAINTENANCE WORKER Gender Identity Not on file Sexual Orientation Not on file Plan of Treatment Health Maintenance Due Date Last Done Comments Cervical Cancer Screening Pa p Smear (Age 30 to 64) Every 3 Years 1974 Colorectal Cancer Screening Colonoscopy (10 Years) 1974 Annual Physical 1977 Hepatitis C 02/17/1992 Hepatitis B Vaccines (1 of 3 - 19+ 3-dose series) 1993 Cervical Cancer Screening Pa p with HPV Testing (Age 30 to 64) Every 5 Years 02/17/2004 Cervical Cancer Screening wi th HPV 02/17/2004 Mammogram Screening 2014 COVID-19 Vaccine (2023-2 5 season) 2023 12/30/2020, 12/09/2020 Influenza Adult (#1) 2023 Zoster Vaccines (1 of 2) 02/17/2024 DTaP, Tdap and Td Vaccines ( 2 - Td or Tdap) 11/04/2030 11/04/2020 Meningococcal B Vaccine Aged Out No l onger eligible based on patient's age to complete this topic Meningococcal Vaccine Aged Out No jacob anthony eligible based on patient's age to complete this topic Pneumococcal Vaccine: Pediatrics (0 to 5 Years) and At-Risk Patients (6 to 64 Years) Aged Out No longer eligible b ased on patient's age to complete this topic RSV Immunizations Under 20 Months Aged Out No longer eligible b ased on patient's age to complete this topic Procedures Procedure Name Priority Date/Time Associated Diagnosis Comments VISUAL EVOKED POTENTIAL TEST Routine 05/24/2024 10:00 AM TOOL MAINTENANCE WORKER Double vision from Last 3 Months Results * Visual evoked potential test (05/24/2024 10:00 AM TOOL MAINTENANCE WORKER) Narrative [facility] - 05/24/2024 10:00 AM TOOL MAINTENANCE WORKER Terrell Joy MD 06/02/2024 3:42 PM VISUAL EVOKED POTENTIAL Check size 8 Left Eye Values: N75=71.8 ms P100= 104.2 ms N145= 144.1 ms Check size 8 Right Eye Values: N75= 67.9 ms P100= 105.8 ms N145= 142.1 ms Check size 16 Left Eye Values: N75=76.9 ms P100= 101.9 ms N145= 137.5 ms Check size 16 Right Eye Values: N75= 74.6 ms P100= 105.4 ms N145= 138.2 ms Impression: Normal Visual evoked potential us Terrell Joy MD NEUROLOGY ORDERABLES Final Result [facility] [address] [place] [address], [id number] from Last 3 Months Insurance [facility] Care Teams Senior Catering Sales Manager Relationship Specialty Start Date End Date Mina Snyder PA [address] [place] [phone] PCP - General PHYSICIAN AUDITOR SUPERVISOR 04/03/22
== END 2024-06-09 10:57 | disposition home or self-care (01) ==
LOC: CHSLAB 11:06 → CHSIMG 11:09
PROVIDERS: PCP Family Medicine; Visit Provider Family Medicine
DX: Z01.818 Encounter for other preprocedural examination (principal)
CPT/HCPCS: 71046; 93005

== ENCOUNTER 2024-07-24 14:00 | Outpatient (RCR) | payer BC, SELFPAY ==
--- NOTE | 2024-05-02 11:39 | STOPEVAL1 ---
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 The patient reported a very extensive past history of neck surgeries, mass behind her right eye that is non cancerous, increased difficulty with her vision, headaches daily, along with 3 strokes that occurred several yeas ago. The patient reported that over the past 6 months or so she has noticed an increase in difficulty with her short term memory, word finding abilities and attention/ multitasking. She often gets frustrated when unable to recall recent events or find the word that she is attempting to say. She also reported that she has some swallowing difficulties since the neck surgeries but is compensating through smaller bites, liquid wash after taking a bit and remaining head neutral position when drinking to decrease risk for cough. Reported Pain Level Pain Score 0: Self Report Assessment ST Clinical Summary Patient was referred for a skilled ST evaluation due to recent increase in difficulty with memory, word finding skills and multitasking. The patient reported that within the past 6 months she has noticed an increase in difficulty. The patient reported a very extensive past history including; two neck surgeries, mass behind her right eye that is non cancerous (discussed possibility to remove it), increased difficulty with her vision, headaches daily, along with 3 strokes that occurred several yeas ago. Throughout the assessment the patient presented with mild word finding difficulties, impaired attention to task with redirection to task frequently during the session, short term memory difficulties ( difficulty recalling 5 words with a delay in presentation). SLUMS testing was completed with a score of 27/30 (difficulty recalling 5 words with delay in presentation). Shaheed Cognitive Evaluation testing was completed during the session with some difficulty noted in immediate/ recent memory, through organization through sequencing, sorting/categorizing, and functional mathematical skills. The Shaheed Language Evaluation was noted completed during the session due to time constraints and will be completed in the upcoming sessions to determine other goals to be added to patient's POC. Recommendation for skilled ST treatment to target I63.89 other cerebral infarction and cognitive deficits following cerebral infarction I69.31, 1x/week for [address] treatment to target immediate and recent memory, thought organization through sequencing, sorting/categorizing skills, and executive function activities to improve patient's ability to complete daily activities and have meaningful conversations with others with least amount of assistance along with reduction in frustration. Plan of Care Interventions Treatment of Language,Treatment for Cognitive Function ST Services Indicated Yes Treatment Frequency and 1x/week for 10 visits Duration These treatments will address the objective and functional deficits as defined above. The patient will be advanced safely and appropriately in order for the patient to progress towards his/her prior level of function. Additional exercises will be introduced and as well as a comprehensive home exercise program upon discharge, if needed, ?to ensure carryover of functional gains achieved in the clinic. This treatment plan has been reviewed and agreement upon by the patient.
--- NOTE | 2024-05-09 11:02 | PCSTNOTE ---
Patient called & cancelled scheduled appointment this date due to inclement weather.
[2024-05-23 14:45] VITALS: O2SAT 80
--- NOTE | 2024-06-06 15:19 | PCSTNOTE ---
Patient called & cancelled scheduled appointment this date due to medication changes and feeling unwell.
[2024-07-03 14:15] VITALS: O2SAT 90
--- NOTE | 2024-07-17 14:43 | PCSTNOTE ---
Patient called & cancelled scheduled appointment this date due to conflicting appointments.
--- NOTE | 2024-07-25 17:17 | BUSTOPDC ---
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 The patient reported a very extensive past history of neck surgeries, mass behind her right eye that is non cancerous, increased difficulty with her vision, headaches daily, along with 3 strokes that occurred several years ago. The patient reported that over the past 6 months or so she has noticed an increase in difficulty with her short term memory, word finding abilities and attention/ multitasking. She often gets frustrated when unable to recall recent events or find the word that she is attempting to say. The patient has completed a total of [address] treatment sessions for the treatment of cognitive deficits, memory deficits with limited progress. Reported Pain Level Pain Score 0: Self Report Pain Score 5: Self Report Pain Score 5: Self Report Pain Score 5: Self Report Pain Score 0: Self Report Pain Score 0: Self Report Pain Score 5: Self Report Pain Score 0: Self Report Pain Score 0: Self Report Pain Score 0: Self Report Assessment ST Clinical Summary Patient was referred for a skilled ST evaluation due to recent increase in difficulty with memory, word finding skills and multitasking. The patient reported that within the past 6 months she has noticed an increase in difficulty. The patient reported a very extensive past history including; two neck surgeries, mass behind her right eye that is non cancerous (discussed possibility to remove it), increased difficulty with her vision, headaches daily, along with 3 strokes that occurred several yeas ago. Throughout the assessment the patient presented with mild word finding difficulties, impaired attention to task with redirection to task frequently during the session, short term memory difficulties ( difficulty recalling 5 words with a delay in presentation). SLUMS testing was completed with a score of 27/30 (difficulty recalling 5 words with delay in presentation). Shaheed Cognitive Evaluation testing was completed during the session with some difficulty noted in immediate/ recent memory, through organization through sequencing, sorting/categorizing, and functional mathematical skills. The patient has completed a total of [address] sessions for the treatment of cognitive-communication skills with limited progress. Patient met goal for complex verbal expression skills through divergent naming and complex organizational skills. Goals have not been met for immediate and recent memory, delayed memory and functional mathematical tasks. The patient reported that she has seen very minimal if any progress and agrees with decision to discharge at this time. Patient has an appointment with neurology on July 27 and was sent home with a variety of memory strategies to utilize within her environment along with activities to continue to target cognitive skills. Patient reported that she is ready for discharge from skilled at this time. Plan of Care Treatment Frequency and Discharge at this time. Duration
--- NOTE | 2024-07-25 17:18 | OPREHPOC ---
Outpatient Therapy Plan of Care This is a Multidisciplinary Plan of Care that may contain components documented by all disciplines (PT, OT, and ST.) ST Problem 1 ST Problem #[address] Goal 1 Goal / Goal Update 1. Patient will participate in home programming to improve carryover/generalization of skills to home environment. 07-24-24: Goal met with participation in tasks to target skills at home with packet sent home this date. Target Visit [address] Problem 2 ST Problem #[address] Goal 1 Goal / Goal Update 1. Patient will complete immediate and recent memory tasks (word recall, recent events, paragraph recall) with 90% accuracy and minimal cues. 07-24-24: Discharge goal. 75% accuracy with moderate cues. 2. Patient will complete delayed recall tasks ( recalling words, items, tasks with a delay in presentation) with 90% accuracy and minimal cues. 07-24-24: discharge goal. 75% accuracy with minimal to moderate cues. 3. Patient will complete complex organizational tasks through sorting, sequencing, categorizing with 90% accuracy and minimal cues. 07-24-24: Goal met with 90% accuracy and minimal cues. 4. Patient will complete functional mathematical tasks/complex problem solving tasks with 90% accuracy and minimal cues. 07-24-24: Discharge goal. 86% accuracy with moderate cues. Target Visit [address] Problem 3 ST Problem #[address] Goal 1 Goal / Goal Update 1. Patient will demonstrate improved word retrieval skills through completion of complex word finding tasks (convergent/divergent naming, completion of sentence with target word) with 90% accuracy and minimal cues. 07-24-24: Goal met. 80-90% accuracy with minimal cues through comparing and contrasting items, divergent naming, and convergent naming tasks. Target Visit 10 Progress Met
== END 2024-07-31 23:59 | disposition home or self-care (01) ==
LOC: CHSST 14:00
DX: I63.89 Other cerebral infarction (principal)
CPT/HCPCS: 92507; 96125

== ENCOUNTER 2024-09-20 12:07 | Outpatient (CLI) | payer BC, SELFPAY ==
--- NOTE | ~2024-09-20 | XR_ITS ---
Lumbosacral Spine: AP and lateral views Clinical History: Pain Findings: The normal lordotic curve is maintained. No fracture seen. There is 6 mm anterolisthesis of L5 over S1. There is moderate to advanced facet arthropathy at L5-S1. The intervertebral disc spaces are preserved. The sacroiliac joints are normally outlined. Impression: 6 mm anterolisthesis of L5 over S1. Reviewed, dictated and finalized at location M. Impression: 6 mm anterolisthesis of L5 over S1.
--- NOTE | ~2024-09-20 | US_ITS ---
Pelvic ultrasound. Clinical History: Vaginal pain Technique: Realtime transabdominal and transvaginal scanning of the pelvis was performed. Color flow Doppler and Doppler spectral analysis were performed. Findings: The uterus is].. The endometrial stripe has a thickness of 11 mm. No focal mass is identif ied. The right ovary measures 3.1 x 2.3 x 1.8 cm. No significant right ovarian or adnexal mass is seen. The left ovary measures 3.9 x 2.8 x 1.8 cm. No significant left ovarian or adnexal mass is seen. There is no evidence of free fluid in the cul de sac. Impression: No significant abnormality seen. Reviewed, dictated and finalized at location . Impression: No significant abnormality seen.
--- OUTSIDE RECORDS SUMMARY | 2024-09-20 12:12 | XMS_ITS | Encounter Summary ---
Author Organization [facility] Address [address] [place] [address] Care Team Providers Care Light Industrial Supervisor Name Role Phone Mina Snyder Primary Care Provider [phone] Encounter Details Date Type Department Care Team (Late st Contact Info) Description 08/27/2018 Abstract SFL CONVERSION [address] [place] [address] , Generic Conversion, Social History Tobacco Use Types Packs/Day Years Used Date Smoking Tobacco: Never Assessed Comments Unknown Sex and Gender Information Value Date Recorded Sex Assigned at Female 05/24/2024 10:16 AM MANAGER TRANSPORTATION Legal Sex Female 5:46 PM MANAGER TRANSPORTATION Gender Identity Not on file Sexual Orientation Not on file documented as of this encounter Plan of Treatment Not on file documented as of this encounter Visit Diagnoses Not on filedocumented in this encounter Care Teams Light Industrial Supervisor Relationship Specialty Start Date End Date Mina Snyder PA [address] [place] [phone] PCP - General PHYSICIAN JUNK DEALER 04/03/22 documented as of this encounter
--- OUTSIDE RECORDS SUMMARY | 2024-09-20 12:12 | XMS_ITS | Clinical Summary ---
Author Organization [facility] Address [address] [place] [address] Care Team Providers Care Independent Producer Name Role Phone Mina Snyder Primary Care Provider [phone] Social History Tobacco Use Types Packs/Day Years Used Date Smoking Tobacco: Never Assessed Comments Unknown Sex and Gender Information Value Date Recorded Sex Assigned at Female 05/24/2024 10:16 AM BROOM HANDLE DIPPER Legal Sex Female 5:46 PM BROOM HANDLE DIPPER Gender Identity Not on file Sexual Orientation [...] Vaccine (2023-2 5 season) 2023 12/30/2020, 12/09/2020 Pneumococcal Vaccine: 50+ Years (1 of 1 - PCV) 02/17/2024 Zoster Vaccines (1 of 2) 02/17/2024 DTaP, [...] on patient's age to complete this topic Insurance [facility] Care Teams Independent Producer Relationship Specialty Start Date End Date Mina Snyder PA [address] [place] [phone] PCP - General PHYSICIAN CONSTRUCTION REP 04/03/22
== END 2024-09-20 12:08 | disposition home or self-care (01) ==
PROVIDERS: PCP Family Medicine; Visit Provider Family Medicine
DX: R10.2 Pelvic and perineal pain (principal); M54.50 Low back pain, unspecified; M43.17 Spondylolisthesis, lumbosacral region
CPT/HCPCS: 72100; 76830; 76856

== ENCOUNTER 2024-09-20 21:21 | Emergency (ER) | payer BC, SELFPAY ==
--- OUTSIDE RECORDS SUMMARY | 2024-09-20 21:23 | XMS_ITS | Clinical Summary ---
Author Organization [facility] Address [address] [place] [address] Care Team Providers Care Building Coordinator Name Role Phone Mina Snyder Primary Care Provider [phone] Social History Tobacco Use Types Packs/Day Years Used Date Smoking Tobacco: Never Assessed Comments Unknown Sex and Gender Information Value Date Recorded Sex Assigned at Female 05/24/2024 10:16 AM CYBER WORKFORCE DEVELOPER AND MANAGER Legal Sex Female 5:46 PM CYBER WORKFORCE DEVELOPER AND MANAGER Gender Identity Not on file Sexual Orientation [...] patient's age to complete this topic Insurance [facility] Care Teams Building Coordinator Relationship Specialty Start Date End Date Mina Snyder PA [address] [place] [phone] PCP - General PHYSICIAN PARTS COUNTER SALESPERSON 04/03/22
--- OUTSIDE RECORDS SUMMARY | 2024-09-20 21:23 | XMS_ITS | Encounter Summary ---
Author Organization [facility] Address [address] [place] [address] Care Team Providers Care Robotics Specialist Name Role Phone Mina Snyder Primary Care Provider [phone] Encounter Details Date Type Department Care Team (Late st Contact Info) Description 08/27/2018 Abstract SFL CONVERSION [address] [place] [address] , Generic Conversion, Social History Tobacco Use Types Packs/Day Years Used Date Smoking Tobacco: Never Assessed Comments Unknown Sex and Gender Information Value Date Recorded Sex Assigned at Female 05/24/2024 10:16 AM FIRST RESPONDER Legal Sex Female 5:46 PM FIRST RESPONDER Gender Identity Not on file Sexual Orientation Not on file documented as of this encounter Plan of Treatment Not on file documented as of this encounter Visit Diagnoses Not on filedocumented in this encounter Care Teams Robotics Specialist Relationship Specialty Start Date End Date Mina Snyder PA [address] [place] [phone] PCP - General PHYSICIAN PIPE FITTER AMMONIA 04/03/22 documented as of this encounter
--- OUTSIDE RECORDS SUMMARY | 2024-09-20 21:24 | XMS_ITS | Data Portability ---
Author Organization [facility], 800 [facility] Neurology ([place]) Address [address] 4th [place] [address] Care Team Providers Care Facilities Painter Name Role Phone CORAL SEAMAN Primary Care Provider [phone] ESTRELLA HALEY Neurosurgeon Assessment Encounter Date Assessment Date Assessment LastModified by Organization Details LastModified Time 06/01/2024 06/01/2024 In summary, Kenyetta is a 49-year-old woman, I am seeing in consultation regarding chronic headache, and visual symptoms. Her neuro-ophthalmi c examination today is normal. Specifically, there is no evidence of papilledema. Optic nerves are healthy looking. OCT RNFL, normal thickness OU. Ocampo visual field normal OU. The rest of her visual afferent and efferent functions are intact. Kenyetta's clinical course and neuro-ophthalmi c examination are NOT consistent with optic neuritis. [...] her questions and concerns. She voiced understanding. 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 For the cognitive decline and strokes, I referred her to my Neurology colleagues, Dr. Ramirez and Dr. Gilbert. She has a working diagnosis of RCVS, which I asked her to continue follow up with Dr. Ramirez and discuss whether she is a candidate for calcium channel blockers. Dr. Joy evaluated her and ruled out pseudotumor cerebri. I will continue following her up for the meningioma. Given the small size of the meningioma as well as the cognitive difficulties that she has, I recommended conservative management. I stressed that it is unlikely to be contributing to her cognitive difficulties. I will see her again in February with follow up MRI brain with and without contrast. Not available 06/26/2024 14:03:03 07/27/2024 07/27/2024 In summary, Kenyetta is a 49-year-old woman, I am seeing in consultation regarding chronic headache, and visual symptoms. She is doing well on Emgality, 20 mg monthly and would like to continue the medication. She is having return of migraine before next dose of Emgality is due. We did trial Ubrelvy samples and she will contact the office to let me know how this is working for her. Does have complaints to bilateral upper extremity numbness and tingling. We did discuss EMG which she is in agreement with. She has been followed by Dr. Haley for cerebral meningioma. I will follow-up with her in 3 months or before as needed. [email or web address] Not available 07/27/2024 14:41:35 Plan of Treatment Reminders Order Date Submit Date Provider Last Modified By Organization Details Last Modified Time Details Appointments Joceline cotton Patient 30.EST 2024 01:00P Damion Calixto Not available Not available Not available Lab CBC w/ auto diff 2024 025 [email or web address] Wi Only - [facility], [address] [place], [address], 09/08/2024 16:43:39 CMP, serum or plasma 2024 025 [email or web address] Sc Only - [facility], [address] [place], [address], 09/08/2024 16:43:39 Referral None recorded . Procedures nerve conducti on study/EM G (PROC) - At [facility] with Dr. Reyez 2024 025 [email or web address] [facility] (Neurology), [address] [place] [address], [address], 08/11/2024 15:18:20 Surgeries None recorded . Imaging MRI, brain, w/wo contrast - Due in February 2025[address] (Imaging), [address] [place], [address], 06/26/2024 17:19:18 Medication Orders Emgality Pen 120 mg/mL subcutan eous pen injector 2024 025 [email or web address] 41 [facility], [address] [place], [address], 06/06/2024 07:02:26 Patient TargetsNo targets recorded. Patient InstructionsNo instructions recorded. Reason for Referral None Reported. Results Created Date Observation Date Name Description Value Unit Range Abnormal Flag Note LastModifiedBy Organization Detail LastModifiedTime 06/08/1905/24/2024 visua l evoke d poten tial (PROC ) No observ ation record ed. DENNIS Joseph ([facility]) - Central Scheduling [address] [place] [address], [address], 06/16/2024 13:42:03 06/15/19 trans -thor acic echoc ardio gram (TTE) (PROC ) No observ ation record ed. [email or web address] [address], [address], Ph [id number] 06/14/2024 13:45:25 07/25/19 25 11/30/2023 US, ladariusle x, carot id arter y No observ ation record ed. [email or web address] [facility]iology [address] [place], [address], 07/24/2024 13:08:34 07/29/19 25 03/16/2024 MR, angio gram, head, w/o contr ast No observ ation record ed. [email or web address] [facility] [address] [place], [address], 07/28/2024 15:32:11 08/12/19 25 08/09/2024 nerve condu ction study /EMG (PROC ) No observ ation record ed. [facility] (Neurology) [address] [place] [address], [address], 09/18/2024 13:21:14 Result Notes None recorded. Problems Name Problem SNOMED Code Status Onset Date Resolution Date Notes Provider Name and Address Organization Details Recorded Time Benign intracrania l hypertensio n 40998461 [facility]23 [facility] 22:[facility]10 Papilledema - optic disc edema due to raised intracrania l pressure 541783425 Active 2023 [facility] 22:27:45 MRI scan abnormal 723994815 Active 2023 [facility] 22:27:42 Mass lesion of brain 298431603 Active 2023 [facility] 22:27:38 Ischemic stroke 866413235 Active 2023 [facility] 22:27:36 Intracrania l aneurysm 402636146 Active 2023 Bisi Figueroa APRN, DNP, [employer] [address] [place] [address], [phone], [facility] 4 12:05:53 Cervical radiculopat hy 25732181 Active 2023 Bisi Figueroa APRN, DNP, [employer] [address] [place] [address], [phone], [facility] 4 12:06:08 Headache 46644105 Active 2023 Elizabethdelicia Veronicae null, [facility] 5 22:27:19 Intracrania l meningioma 101088709 Active 2023 Elizabeth Lacterelle null, [facility] 5 22:27:32 Impaired cognition 830408389 Active 2023 Jesus Alberto Avendaño MD [address] [place] [address], [phone], [facility] 5 15:06:06 Cerebral infarction 752209706 Active 2024 Elizabeth Laconte null, [facility] 5 22:27:13 Imaging result abnormal 471142502 Active 2024 Elizabeth Laconte null, [facility] 5 22:27:48 Cervical post-anish ctomy syndrome 003068640 Active 2024 Elizabeth Laconte null, [facility] 5 22:27:16 Pain of bilateral eyes 5082896864291 09 Active 2024 Elizabeth Laconte null, [facility] 5 14:28:05 Visual field defect 79507796 Active 2024 Elizabeth Laconte null, [facility] 5 14:28:08 Migraine 34876740 Active 2024 Elizabeth Laconte null, [facility] 5 14:28:02 Paresthesia of hand 148839049 Active 2024 Enoc Calixto APN [address] [place] [address], [address], [facility] 5 14:41:47 Carpal tunnel syndrome of left wrist 1628224441281 02 Active 2024 Jessie Alas null, [facility] 5 13:32:54 Neck pain 83741127 Active 2024 Bisi Figueroa APRN, DNP, [employer] [address] [place] [address], [place], [address], [facility] 5 16:03:52 Low back pain 941472371 Active 2024 Bisi Figueroa APRN, DNP, [employer] [address] [place] [address], [address], [facility] 5 16:04:19 Problem Notes None recorded. Procedures Surgical History Date Name Laterality Status Provider Name and Address Organization Details Recorded Time 06/17/19 25 angiography completed Ashley Tan [facility] 06/26/2024 10:33:52 05/04/19 25 SC Procedure completed Terrell Joy MD [address] [place] [address], [phone], [facility] 05/04/2024 17:10:42 12/30/19 24 SC Lumbar Puncture Procedure completed Santa Gilbert MD [address] [place] [address], [phone], [facility] 12/30/2023 17:12:18 delivery completed Not Available Health Note 03/26/2024 18:27:13 Colonoscopy with biopsy completed Not Available Health Note 03/26/2024 18:27:13 Imaging Results None recorded. Procedure Notes None recorded. Medical Equipment None Reported. Allergies Allergen ID Allergen Name Allergen Category Reaction Reaction Severity Criticality Documentation Date Start Date Code Code System Note Provider Name and Address Organization Details Recorded Time 940296 Tylenol with Codeine medicatio n dyspnea Not available Not available 04/19/20232018 26004 6 RxNorm React ion: Short ness of marcos h; Not Available [facility] 21:37[facility]01 Medications Name Sig Start Date Stop Date Status Note LastModified by Organization Details LastModified Time prednisone 10 mg tablet 01/11 completed Not Available Not Available Not Available azithromyci n 250 mg tablet 01/11 completed Not Available Not Available Not Available acetazolami de ER 500 mg capsule,ext ended release TAKE 2 CAPSULE TWICE A DAY 06/26 completed Not Available Not Available Not Available tizanidine 4 mg tablet Take 1 tablet every 6 hours by oral route. active Not Available Not Available No t Available meloxicam 15 mg tablet Take 1 tablet every day by oral route. 04/04 completed Not Available Not Available Not Available Medrol (Paul) 4 mg tablets in a dose pack Take 1 dose pk by oral route. 2024 active Not Available Not Available Not Avai lable potassium chloride 20 mEq oral packet Take [...] Available nortriptyli ne 10 mg capsule TAKE 1 CAPSULE AT BEDTIME FOR 1 WEEK THEN 2 CAPSULES AT BEDTIME THEREAFTE R 2024 active Not Available Not Available Not Avai lable neomycin-po lymyxin-dex ameth 3.5 mg/mL-10,00 0 unit/mL-0.1 % eye drops 01/11 completed Not Available Not Available Not Available tobramycin 0.3 % eye drops 01/11 completed Not Available Not Available Not Available indomethaci n 25 mg capsule Take 1 capsule 3 times a day by oral route as needed. 09/18 completed Not Available Not Available Not Available etodolac 400 mg tablet Take 1 tablet twice a day by oral route. 2024 active Not Available Not Available Not Avai lable mupirocin 2 % topical ointment Place a small amount on a q-tip and swab inside of nose twice daily starting 5 days prior to procedure 06/26 completed Not Available Not Available Not Available medroxyprog esterone 150 mg/mL intramuscul ar syringe 02/27 completed Not Available Not Available Not Available Asprin Ec Low Dose 81 mg tablet,shamika yed release Take 1 tablet every day by oral route. active Not Available Not Available No t Available rosuvastati n 10 mg tablet Take 1 tablet every day by oral route. 09/18 completed Not Available Not Available Not Available Klor-Con M20 mEq tablet,exte nded release 04/04 completed Not Available Not Available Not Available fenofibrate 160 mg tablet active Not Available Not Available Not Available Repatha Syringe active Not Available Not Available Not Available [...] Updated DateTime 5 152.4 cm 32.4 kg/m2 61898.3 3 g 80 /min 98 % 98 % 122 mm[Hg] 64 mm[Hg] Elizabeth Tolbert [facility] 5 11:35:16 Date Recorded Body height Body mass index (BMI) Body weight Heart rate Oxygen saturation Oxygen saturation in Arterial blood by Pulse oximetry Systolic blood pressure Diastolic blood pressure Provider Name and Address Organization Details Last Updated DateTime 5 152.4 cm 34 kg/m2 30929.0 7 g 80 /min 97 % 97 % 142 mm[Hg] 70 mm[Hg] Ashley Tan [facility] 5 12:20:17 Date Recorded Body height Body mass index (BMI) Body weight Heart rate Oxygen saturation Oxygen saturation in Arterial blood by Pulse oximetry Systolic blood pressure Diastolic blood pressure Provider Name and Address Organization Details Last Updated DateTime 5 152.4 cm 33.8 kg/m2 49242.4 8 g 89 /min 98 % 98 % 120 mm[Hg] 68 mm[Hg] Montse Payne [facility] 5 14:19:22 Date Recorded Body height Body mass index (BMI) Body weight Heart rate Oxygen saturation Oxygen saturation in Arterial blood by Pulse oximetry Systolic blood pressure Diastolic blood pressure Provider Name and Address Organization Details Last Updated DateTime 5 152.4 cm 34.3 kg/m2 60944.1 g 79 /min 95 % 95 % 130 mm[Hg] 84 mm[Hg] Lissa Zamoragerald [facility] 5 15:26:51 Social History Question Answer Notes LastModified by MideoMe Details LastModified Time Tobacco Smoking Status Former Smoker Not Available Health Note 03/26/2024 18:27:14 Do You Have An Advance Directive? No [email or web address] Information not available 03/26/2024 What Is Your Level Of Caffeine Consumption? Occasional [email or web address] Information not available 03/26/2024 How Many Times Per Week Do You Exercise? Less Than 1 Time Per Week [email or web address] Information not available 03/26/2024 When Did You Quit Smoking? 2012 [email or web address] Information not available 03/26/2024 What Was The Date Of Your Most Recent Tobacco Screening? 03/28/2024 [email or web address] Information not available 03/26/2024 What Is Your Relationship Status? [email or web address] Information not available 03/26/2024 Sex: Unknown Functional Status Question Answer Note LastModified by MideoMe Details LastModified Time How many times per week do you consume alcohol? Less than 1 time per week [email or web address] Information not available 03/26/2024 Do you use any illicit or recreational drugs? No [email or web address] Information not available 03/26/2024 What is your level of alcohol consumption? Occasional [email or web address] Information not available 03/26/2024 Are you currently employed? No [email or web address] Information not available 03/26/2024 What is your occupation? Disabled [email or web address] Information not available 03/26/2024 What is your exercise level? None [email or web address] [...] Hypertensive disorder [email or web address] Not available 2024 18:27:13 Notes: Rheumatoid arthritis in paternal relatives. Medical History Condition Response Anxiety Disorder N Diabetes Y Bleeding Disorder N Attention-deficit Hyperactivity Disorder N High Blood Pressure N Arthritis N Hyperlipidemia N Cancer N Thyroid Problems N Stroke Y Asthma N Depression N COPD N Seizures N Anemia N Heart Disease N Fibromyalgia N Osteoporosis N Kidney Disease N Gynecological HistoryNo gynecological history recorded. Obstetrics History GPAL:G 0 P 0 0 0 0 Immunizations Vaccine Type Date Status Note Provider Nam e and Address Organization Details Recorded Time COVID-19, mRNA, LNP-S, PF, 30 mcg/0.3 mL dose 12/09/[address] [facility] 05/01/2024 22:28:42 COVID-19, mRNA, LNP-S, PF, 30 mcg/0.3 mL dose 12/30/[address] [facility] 05/01/2024 22:28:42 Tdap 11/04/[address] [facility] 05/01/2024 22:28:42 Past Encounters Encounter ID Performer Location Encounter Start Date Encounter Closed Date Diagnosis/Indication Diagnosis SNOMED-CT Code Diagnosis ICD10 Code Diagnosis Note [id number] Mela Martinez PA-C [address] [facility] ([place]) [address] [place] [address] 10/29/2023 14:51:17 10/29/2023 15:47:52 Benign intracranial hypertension 57521726 G93.2 Papilledem a - 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 858188379 H47.11 [id number] Jeannie Garcia, NAIL ASSEMBLY MACHINE OPERATOR, [employer] [address] [facility] ([place]) [address] [place] [address] 12/09/2023 10:34:43 12/09/2023 17:14:47 Mass lesion of brain 341688961 G93.89 [id number] Santa Gilbert MD [address] [place] [address] [place]rology ([place]) [address] [place] [address] 12/30/2023 14:28:33 12/30/2023 17:15:57 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 135212767 H47.11 [id number] Bisi Figueroa, NAIL ASSEMBLY MACHINE OPERATOR, DNP, HO[employer] CO[employer]ER [facility] Neuro[facility] [place] ([place]) [address],4[address] [place] [address] 01/12/2024 10:04:58 01/21/2024 06:08:41 Cervical radiculopathy 92861147 M54.12 Intracranial aneurysm 12 5103826 I67.1 [id number] MD Dale ProctorZSlime [facility] ([place]) [address],4[address] [place] [address] 01/12/2024 11:24:59 01/14/2024 09:52:29 Mass lesion of brain 745762187 G93.89 [id number] Bianka Maciel MD ZZPaviалександр [facility] ([place]) [address],4[address] [place] [address] 01/12/2024 11:24:40 01/14/2024 09:52:43 Mass lesion of brain 396132951 G93.89 I67.1 [id number] Bianka Maciel MD ZZPapoonam [facility] ([place]) [address],4[address] [place] [address] 02/22/2024 14:05:29 02/23/2024 12:39:46 Intracranial meningioma 420694351 D32.0 [id number] MD Dale ProctorZPapoonam [facility] ([place]) [address] [place] [address] 02/22/2024 15:33:14 02/23/2024 12:22:08 Mass lesion of brain 350905461 G93.89 I67.1 [id number] Estrella Haley MD [address] [facility] [address] [place] [address] 02/28/2024 11:44:37 03/08/2024 17:08:12 Intracranial aneurysm 748113738 I67.1 Intracrani al meningioma 153555358 D32.0 Ischemic stroke 93616950 2 I63.9 Papilledem a - 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 153161814 H47.11 [id number] Chrissy Ramirez MD, MS [address] ([place]) [address] [place] [address] 04/04/2024 15:51:51 04/04/2024 17:24:24 Cerebral infarction 992050812 I63.89 Impaired cognition 34942 6002 G31.84 [id number] Jesus Alberto Avendaño MD [address] [place] [address],[address] [place] [address] 04/25/2024 13:57:50 04/26/2024 18:38:18 History of cerebrovascular accident 531938608 Z86.73 Impaired cognition 05068 6002 R41.89 Imaging re sult abnormal 921344851 R93.89 Cervical post-laminectomy syndrome 254185422 M96.1 [id number] Terrell Joy MD [address] ([place]) [address] [facility],[address] [place] [address] 05/04/2024 11:21:29 05/09/2024 09:27:16 Pain of bilateral eyes 3660752483 89922 H57.13 Migraine 02834262 G43.90 [id number] Estrella Haley MD [address] ([place]) [address] [facility],[address] [place] [address] 05/24/2024 14:04:35 06/15/2024 15:27:35 Intracranial aneurysm 252149392 I67.1 Intracrani al meningioma 715483653 D32.0 Ischemic stroke 56791187 2 I63.9 [id number] Terrell Joy MD [address] [place]rology ([place]) [address] [facility],5th [place] [address] 06/01/2024 11:06:32 06/01/2024 12:27:26 Migraine 41561278 G43.909 [id number] Estrella Haley MD [address] [facility] [place] ([place]) [address] [place] [address] 06/26/2024 12:04:59 07/17/2024 15:33:23 Intracranial aneurysm 955884339 I67.1 Intracrani al meningioma 128038930 D32.0 Ischemic stroke 17637363 2 I63.9 [id number] Enoc Calixto APN [address] Neurology ([place]) [address] [place] [address] 07/27/2024 13:48:03 07/27/2024 17:33:37 Migraine 97714797 G43.909 Paresthesia of hand 3090 50518 R20.0 R20.2 [id number] Huy Reyez MD [address] [place]rology ([place]) [address] [facility],[address] [place] [address] 08/09/2024 15:56:59 08/16/2024 06:24:49 Carpal tunnel syndrome of left wrist 4663449575 62325 G56.02 Health Concerns Section Related Observation LastModified by Organization Detai ls LastModified Time None Recorded Concern Status LastModified by Organization Details LastModified Time None Recorded Advance Directives Directive N: Payers Insurance Date Sequence Insurance Name Policy Number Policy Russell Covered Member ID Russell Member ID Guarantor Name 09/19/[address] [facility] ([place]) [id number] Jarred A Sheryl [id number] Kenyetta Laralucerochristinaadam Notes Date Note Type Note Provider Name and Address Organization Details Recorded Time 06/01/2024 text/html Kenyetta Saucedo is a 49 year old woman I m seeing for follow up regarding chronic headachePrevious Clinic Notes 05/04/24Social History: Kenyetta is a woman from [facility] [place]. She and her including her 2 daughters. [...] back in 2016, and was evaluated at [place]. Diagnostic angiogram from [place] shows areas of caliber change with skip lesions, with almost poor perfusion to no perfusion in the right DIRECTOR TRADE territory. She has right occipital area of encephalomalacia, probably the result of ischemia from RCVS, per vascular neurology. She have been taking acetazolamide 500 mg 2 tabs BID since 2016, prescribed at [place].Kenyetta has had headaches since 2013. She describes [...] tetracycline, or minocycline.Neuromagin g:CTA head/neck.02/22/24-MRI brain at [place] reveals Stable right frontal meningioma with local [...] on her last appointment. Terrell Joy MD [facility] [place] [address], [phone], [facility] 06/06/2024 07:02:39 06/26/2024 text/html Ms. Saucedo is a 49 year old female who is a patient of Dr. Seaman returns for follow up after Cerebral angiogram on 06/16/[address] [facility]. The patient is accompanied by her daughter and granddaughter. The patient reports headaches. The night after procedure, patient reports she had severe pain with a migraine. Patient stated she does Emgality injections which do help. Patient reports blurry vision and loss of balance at times. Patient denies any falls. The patient reports she does have confusion, memory loss and word-finding difficulties. The patient reports trouble with comprehension and focus which seems to be getting worse. She reports left sided face numbness and arm heaviness about a week before her procedure. This lasted a couple of days then went away. Patient reports eye twitching in both eyes over the last couple weeks. The patient's daughter reports patient has an increase in anxiety over the last couple weeks. The patient reports something feels off and her body is hot all the time. She denies any other stroke like symptoms or seizures. 06/26/24-Patient is here today with her daughter and granddaughter. Patient reports headaches. The night after procedure, patient reports she had severe pain with a migraine. Patient stated she does Emgality injections which do help. Patient reports blurry vision and loss of balance at times. Patient denies any falls. Patient reports she does have confusion, memory loss and word-finding difficulties. Patient reports trouble with comprehension and focus which seems to be getting worse. Patient reports left sided face numbness and arm heaviness about a week before her procedure. This lasted a couple of days then went away. Patient reports eye twitching in both eyes over the last couple weeks. Patient's daughter reports patient has an increase in anxiety over the last couple weeks. Patient reports something feels off and her body is hot all the time. Patient denies any other stroke like symptoms or seizures. No Quality Improvement Manager, Neurologist: Dr. Gilbert ([place]), Radiation/Oncologist: Dr. Maciel ([place]),Vascular Neurology: Dr. Ramirez ([place]),Rheumatology: Dr. Avendaño ([place]),Neurology Ophthalmic- Dr. Joy ([place])Blood thinners: Sriocug62/30/17-CTA head at [place] ordered for headache reveals narrowing of the left vertebral & proximal basilar artery which may be secondary to vasculopathy, reversible cerebral vasoconstriction syndrome or underlying atherosclerotic disease.09/18/16-Cereb ral Angiogram at [place] by Dr. Solomon reveals no angiographic explanation for pt's SAH. A 1.5x2mm left cavernous ICA aneurysm. Mild diffuse intracranial atherosclerotic disease with no significant stenosis.11/06/23-MRI brain w/o ordered for benign intracranial hypertension at [facility] reveals small old infarct in the right occipital lobe. No acute intracranial process. Single indeterminate 1.3cm T2 Hyperintense lesion in the anterior right frontal lobe which has a wide differential which would include malignancy either primary or metastatic. would recommend additional post-contrast MR imaging for further evaluation.11/20/23-MR I brain with and without reveals enhancing right frontal lobe mass with enhancing dural tail. Considerations include benign meningioma, metastatic disease and primary intracranial neoplasm. chronic right occipital lobe infarction.12/09/23-BIOANALYST V with Bret Garcia APRN recommend reports numbness going down her arms and fingers as well as dropping things with her left hand due to weakness since 201, aching bone pain, senior writer recently and noted to have disc & papilledema on the left. pseudotumor being treated with with 1000mg Diamox BID & furosemide 8/0mg managed by Dr. Gilbert's office. recommend repeating MRI brain in 1 year, evaluate the need for possible COMPUTER SYSTEMS ENGINEER shunt. recommend establishing care with Dr. aHley for aneurysm & referral for SRS for tumor.12/30/23-LP with Dr. Gilbert's office. Opening pressure of 200mm H20, closing pressure 160mm H201-NPV w/ C. Henry NAIL ASSEMBLY MACHINE OPERATOR. Reports daily headaches across the front of her head & will sometimes wrap around her head, loss of vision & blurry vision in both eyes that has been present for a while, lost 50% of vision in last 4-6 months. loss of balance with no falls, increase confusion & word finding difficulties. reports neck pain with numbness/tingling down her arms. recommend PT, repeat CTA head/neck.02/22/24-MRI brain at [place] reveals Stable right frontal meningioma with local mass effect mass effect and edema in the underlying right frontal lobe. Stable areas of chronic infarction in the bilateral parietal lobes and right occipital lobe.02/28/24-Pt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
[2024-09-20 21:25] VITALS: BP 135/88; PULSE 83; RESP 18; TEMP 36.6; O2SAT 96
--- NOTE | 2024-09-20 21:45 | ED_ITS ---
HPI - Wound/Laceration General Chief Complaint: Wound/Laceration Stated Complaint: finger laceration Time Seen by Provider: 09/20/24 21:43 Source: patient Mode of arrival: ambulatory Limitations: no limitations History of Present Illness HPI narrative: 49-year-old female with a history reversible cerebral vasoconstriction syndrome, pseudotumor cerebri, recurrent strokes, CGRP inhibitor as for headaches presents to the ED with -- 1 cm superficial laceration over the right index finger PIP. Cut herself with a knife. No other injuries noted. patient is left handed Onset (ago): minute(s) ( 45 minutes before coming ED) Extremity Location: Right: hand Body four view annotation: 2 1. 1 cm superficial laceration over the right index finger PIP. Place: home Patient tetanus UTD: No Context: accidental Associated symptoms: none Related Data Home Medications ?Medication ?Instructions ?Recorded ?Confirmed ?Last Taken ?Type acetazolamide 500 mg 500 mg PO DAILY 12/06/19 02/08/24 02/08/24 History capsule,extended release gabapentin 600 mg tablet 600 mg PO TID 12/06/19 02/08/24 02/08/24 History medroxyprogesterone 150 mg/mL 150 mg IM [id number] 12/06/19 02/08/24 02/07/24 History intramuscular syringe tizanidine 4 mg tablet 4 mg PO TID 12/06/19 02/08/24 02/08/24 History furosemide 80 mg tablet 80 mg PO DAILY 02/04/24 02/08/24 02/07/24 History nortriptyline 10 mg capsule 20 mg PO DAILY 02/04/24 02/08/24 02/07/24 History potassium chloride 20 mEq 20 meq PO DAILY 02/04/24 02/08/24 02/07/24 History tablet,extended release(part/cryst) (Klor-Con M) rosuvastatin 10 mg tablet 10 mg PO DAILY 02/04/24 02/08/24 02/07/24 History Allergies Allergy/AdvReac Type Severity Reaction Status Date / Time acetaminophen (From Allergy Anaphylaxis Verified 02/08/24 09:08 Tylenol-Codeine #3) codeine (From Allergy Anaphylaxis Verified 02/08/24 09:08 Tylenol-Codeine #3) Review of Systems 2 Review of Systems: All systems reviewed & are unremarkable except as noted in HPI and below PMFSH Past Medical History Medical History (Updated 09/20/24 @ 22:22 by Gómez Araiza MD) Chronic headache Pseudotumor cerebri Reversible cerebrovascular vasoconstriction syndrome Social History Social History Smoking status: Never smoker Alcohol intake: current Alcohol use details: rarely Substance use: never Substance use type: does not use Living arrangements: with family Spiritual care concerns: No Exam 2 Narrative: vitals are stable Const: General: healthy appearing and no acute distress Nutritional Appearance: well nourished Orientation/consciousness: patient oriented x3 Limitations: no limitations HENMT: Head: normal to inspection Ears: external ears normal F greyson/Nose/Sinus: Normal external nose present Face and sinus: normal facial exam Mouth: Yes Normal oral and palatal mucosa present Throat: posterior oropharynx normal Eyes: Conjunctivae: conjunctivae normal Pupils: Equal, round and reactive pupils present EOM: EOMs intact bilaterally Direct Ophthalmoscopy: no photophobia Neck: Neck: normal visual inspection, no lymphadenopathy and no meningeal signs Chest: Chest palpation & inspection: normal inspection of the chest Resp: Effort & Inspection: normal respiratory effort Auscultation: clear to auscultation bilaterally Cardio: Rate: regular rate Rhythm: regular rhythm GI: GI Palp: Yes Soft to palpation Auscultation: normal bowel sounds O ther: No tenderness/rigidity / rebound. Back/Spine/Pelvis: Back: no CVA tenderness Skin: General skin exam: normal color Other: 1 cm superficial laceration on the right index finger PIP distal neurovascular bundle is intact. Normal range of motion of PIP joint Neuro: General: patient oriented x3, moves all extremities, no meningeal signs, no focal motor deficits and CN's II-XI intact bilaterally Cranial nerves: Yes Nystagmus not present Speech: normal speech Extrem: General: normal to inspection and no clubbing, cyanosis or edema O ther: right index finger 1 cm laceration on the PIP Psych: Mental Status: mental status grossly normal Affect: normal affect Attitude: cooperative Course Course Emergency Course: finger laceration-- glued with Dermabond Vital Signs Vital signs: Vital Signs Temperature 36.6 C 09/20/24 21:25 Pulse Rate 83 09/20/24 21:25 Respiratory Rate 18 09/20/24 21:25 Blood Pressure 135/88 09/20/24 21:25 Pulse Oximetry 96 09/20/24 21:25 Oxygen Delivery Room Air 09/20/24 21:25 Temperature 36.6 C 09/20/24 21:25 Pulse Rate 83 09/20/24 21:25 Respiratory Rate 18 09/20/24 21:25 Blood Pressure 135/88 09/20/24 21:25 Pulse Oximetry 96 09/20/24 21:25 Oxygen Delivery Room Air 09/20/24 21:25 Procedures Laceration Laceration 1: Date: 09/20/24 Time: 22:20 Site: other ( right index finger cm laceration on the dorsal PIP.) Side (If applicable): right Size (cm): 1 Description: linear Depth: simple, single layer ====== Skin Level ====== Skin layer closed with: dermabond ====== Subcutaneous Layer ====== ====== Muscle Layer ====== ====== Tendon Layer ====== MDM - Wound/Laceration MDM Narrative Medical decision making narrative: accidental finger laceration Differential Diagnosis Differential diagnosis: Likely avulsion of skin Medical Records Attestation: I reviewed the patient's medical records. Discharge Plan Discharge Clinical Impression: Finger laceration Qualifiers: Encounter type: initial encounter Finger: index finger Damage to nail status: w ithout damage Foreign body presence: without foreign body Laterality: right Q ualified Code(s): S61.210A - Laceration without foreign body of right index finger without damage to nail, initial encounter Patient Disposition: Home Condition: Stable Instructions: Antibiotic Form, Finger Laceration (ED) Additional Instructions: monitor for infection Patient Language: Croatian Prescriptions: No Action gabapentin 600 mg tablet 600 mg PO TID acetazolamide 500 mg capsule, extended release 500 mg PO DAILY tizanidine 4 mg tablet 4 mg PO TID medroxyprogesterone 150 mg/mL syringe 150 mg IM [id number] potassium chloride [Klor-Con M20] 20 mEq tablet,ER particles/crystals 20 meq PO DAILY rosuvastatin 10 mg tablet 10 mg PO DAILY furosemide 80 mg tablet 80 mg PO DAILY nortriptyline 10 mg capsule 20 mg PO DAILY Follow-up/Referrals: Marcelle,MD Manoj [Primary Care Provider] - Time of Disposition: :22
--- OUTSIDE RECORDS SUMMARY | 2024-09-20 22:10 | XMS_ITS | Clinical Summary ---
Author Organization [facility] Address [address] [place] [address] Care Team Providers Care Education Managers Name Role Phone Mina Snyder Primary Care Provider [phone] Social History Tobacco Use Types Packs/Day Years Used Date Smoking Tobacco: Never Assessed Comments Unknown Sex and Gender Information Value Date Recorded Sex Assigned at Female 05/24/2024 10:16 AM CONCRETE BLOCK LAYER Legal Sex Female 5:46 PM CONCRETE BLOCK LAYER Gender Identity Not on file Sexual Orientation [...] patient's age to complete this topic Insurance [facility] Care Teams Education Managers Relationship Specialty Start Date End Date Mina Snyder PA [address] [place] [phone] PCP - General PHYSICIAN WATER FABRICATOR OPERATOR 04/03/22
--- OUTSIDE RECORDS SUMMARY | 2024-09-20 22:10 | XMS_ITS | Encounter Summary ---
Author Organization [facility] Address [address] [place] [address] Care Team Providers Care Television Anchor Name Role Phone Mina Snyder Primary Care Provider [phone] Encounter Details Date Type Department Care Team (Late st Contact Info) Description 08/27/2018 Abstract [facility] CONVERSION [address] [place] [address] , Generic Conversion, Social History Tobacco Use Types Packs/Day Years Used Date Smoking Tobacco: Never Assessed Comments Unknown Sex and Gender Information Value Date Recorded Sex Assigned at Female 05/24/2024 10:16 AM POSITION CLASSIFICATION SPECIALIST Legal Sex Female 5:46 PM POSITION CLASSIFICATION SPECIALIST Gender Identity Not on file Sexual Orientation Not on file documented as of this encounter Plan of Treatment Not on file documented as of this encounter Visit Diagnoses Not on filedocumented in this encounter Care Teams Television Anchor Relationship Specialty Start Date End Date Mina Snyder PA [address] [place] [phone] PCP - General PHYSICIAN STRIPPER APPRENTICE 04/03/22 documented as of this encounter
--- NOTE | 2024-09-20 22:12 | PC.NURSE ---
ERP AT BEDSIDE TO GLUE PATIENT FINGER AT THIS TIME.
== END 2024-09-20 22:37 | disposition home or self-care (01) ==
PROVIDERS: Emergency Provider Internal Medicine Critical Care Medicine; PCP Family Medicine
DX: S61.210A Laceration without foreign body of right index finger without damage to nail, initial encounter (principal); W26.0XXA Contact with knife, initial encounter
CPT/HCPCS: 12001; 99282

== ENCOUNTER 2024-10-07 08:19 | Outpatient (CLI) | payer BC, SELFPAY ==
--- NOTE | ~2024-10-07 | MR_ITS ---
MRI of the cervical spine Clinical History: Pain Technique: Axial T2-weighted and gradient images, and sagittal T1-weighted, T2-weighted, and STIR kusum ges were acquired. Findings: There is straightening of the normal cervical lordosis. No acute fracture or subluxation id entified. There is probable anterior and posterior fusion extending from C5 to C7, with hardware and associated susceptibility artifact. No acute fracture or subluxation seen. No suspicious bone marrow signal abnormality evident. At C2-C3, there is no significant disc bulge or herniation. No spinal canal stenosis, cord compressio n, or neural foraminal narrowing. At C3-C4, there is no significant disc bulge or herniation. No spinal canal stenosis or cord compress ion. No definite neural foraminal narrowing despite mild facet arthropathy. At C4-C5, there is minimal disc osteophyte complex. No definite canal stenosis or cord compression. N o definite neural foraminal narrowing. At C5-C6, there is no definite canal stenosis, cord compression, or neural foraminal narrowing. At C6-C7, there is no definite canal stenosis, cord compression, or neural foraminal narrowing. No abnormal signal in the spinal cord. Paravertebral soft tissues are unremarkable. Impression: Postoperative changes from C5 to C7, as above. Minimal degenerative changes, as above. Reviewed, dictated and finalized at [facility]. Impression: Postoperative changes from C5 to C7, as above. Minimal degenerative changes, as above.
--- OUTSIDE RECORDS SUMMARY | 2024-10-07 08:22 | XMS_ITS | Encounter Summary ---
Author Organization [facility] Address [address] [place] [address] Care Team Providers Care Sterilizer Operator Name Role Phone Mina Snyder Primary Care Provider [phone] Encounter Details Date Type Department Care Team (Late st Contact Info) Description 08/27/2018 Abstract [facility] CONVERSION [address] [place] [address] , Generic Conversion, Social History Tobacco Use Types Packs/Day Years Used Date Smoking Tobacco: Never Assessed Comments Unknown Sex and Gender Information Value Date Recorded Sex Assigned at Female 05/24/2024 10:16 AM TWIST MAKER Legal Sex Female 5:46 PM TWIST MAKER Gender Identity Not on file Sexual Orientation Not on file documented as of this encounter Plan of Treatment Not on file documented as of this encounter Visit Diagnoses Not on filedocumented in this encounter Care Teams Sterilizer Operator Relationship Specialty Start Date End Date Mina Snyder PA [address] [place] [phone] PCP - General PHYSICIAN PARTITION ASSEMBLER 04/03/22 documented as of this encounter
--- OUTSIDE RECORDS SUMMARY | 2024-10-07 08:22 | XMS_ITS | Data Portability ---
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 office. recommend repeating MRI brain in 1 year, evaluate the need for possible ECDIS N NAVIGATION OPERATOR shunt. recommend establishing care with Dr. Haley for aneurysm & referral for SRS for tumor. 12/30/23-LP with Dr. Gilbert's office. Opening pressure of 200mm H20, closing pressure 160mm H20 01/12/24-NPV w/ C. Henry SHREDDED FILLER MACHINE WRAPPER LAYER. Reports daily headaches across the front of [...] down her arms. recommend PT, repeat CTA head/neck. 02/22/24-MRI brain at [facility] reveals Stable right frontal meningioma with local mass effect and edema in the underlying right frontal lobe. Stable areas of chronic infarction in the bilateral parietal lobes and right occipital lobe. 02/28/24-Pt states the nortriptyline helps take the edge [...] Vision is worse some days than other days. 05/24/24-Reports changes in balance, difficulty with fine motor skills.Recommend angiogram. 06/16/24-Cerebral Angiogram at [facility] shows There is equidominant vertebral artery system. No evidence of stenosis, narrowing, or arteriovenous malformation. The caliber of the venous outflow is normal. Normal cerebral angiogram. No evidence of vasospasm. 06/26/24-Reports feeling off. Recommend f/u in February with MRI. 08/09/24-EMG at [facility] shows mild left carpal tunnel syndrome, right median sensory latencies were barely normal, EMG shows no evidence of acute/chronic denervation. otherwise, unremarkable NCV/EMG of bilateral upper extremities. Bisi Figueroa, SHREDDED FILLER MACHINE WRAPPER LAYER, DNP, STATISTICS INTERN [address] [place] [address], [phone], [facility] 09/26/2024 18:02:29 OBGyn Episode No OBEpisode recorded.
--- OUTSIDE RECORDS SUMMARY | 2024-10-07 08:22 | XMS_ITS | Clinical Summary ---
Author Organization [facility] Address [address] [place] [id number] Care Team Providers Care Executive Steward Name Role Phone Mina Snyder Primary Care Provider [phone] Social History Tobacco Use Types Packs/Day Years Used Date Smoking Tobacco: Never Assessed Comments Unknown Sex and Gender Information Value Date Recorded Sex Assigned at Female 05/24/2024 10:16 AM QA DEVELOPER Legal Sex Female 5:46 PM QA DEVELOPER Gender Identity Not on file Sexual Orientation [...] patient's age to complete this topic Insurance [facility] Care Teams Executive Steward Relationship Specialty Start Date End Date Mina Snyder PA [address] [place] [phone] PCP - General PHYSICIAN METAL SLITTER 04/03/22
== END 2024-10-07 08:20 | disposition home or self-care (01) ==
LOC: CHSIMG 08:21
PROVIDERS: PCP Family Medicine
DX: M54.2 Cervicalgia (principal); Z98.890 Other specified postprocedural states
CPT/HCPCS: 72141

== ENCOUNTER 2024-12-20 00:45 | Day surgery (SDC) | payer BC, SELFPAY ==
[2024-12-07 11:07] VITALS: BMI 35.2
--- NOTE | 2024-12-07 11:28 | PC.NURSE ---
[facility] has started construction of its new state of the art ER which will open Spring 2026. With this, we anticipate parking may be a challenge for some our surgical patients and families. Parking spaces are limited but are available for all Surgical, obstetrics, and ER patients sharing this lot. If you arrive and find you are having a hard time finding a parking space, please note that we understand the challenges, please drive around the hospital and park near Hospital Entrance 1. When you enter this entrance, you can ask a volunteer to direct or take you back to the surgical waiting area to check in. We appreciate everyone?s understanding of these expected challenges while we build for your future. Report to the Outpatient Waiting Room, entrance under the green pavilion located off [address], at time _1000_ on date _[id number]_. Planned Procedure Time: _1200_.? Time changes happen often and if your time is changed the preop area will call you the afternoon before. - You and your visitor will be asked to self-screen and do not enter if you have any COVID symptoms. Please call surgeon if you need to reschedule. - A mask is optional within the hospital at this time. Patients may have clear liquids (water, carbonated beverages, clear teas, apple juice) until 3 hours prior to surgery with a maximum of 20 ounces. - No food from midnight until time of surgery and no smoking, or chewing tobacco (or any form of nicotine). No chewing gum, candy or mints. Take only the following medications with a SIP of water on the morning of surgery: ___Pregabalin DO NOT STOP ANY OF YOUR OTHER PRESCRIPTION MEDICATIONS PRIOR TO SURGERY EXCEPT THE FOLLOWING Hold all vitamins and supplements for 3 days per anesthesiologist. Medications to discontinue per physician Please ask Dr Morgan office about Aspirin and Etodolac if need to hold prior to surgery. Date to take last dose____ Please no make-up, nail north korean, hairspray, perfume, deodorant, or body powder the day of surgery.? No jewelry (including any body piercings) or valuables the day of surgery, leave them at home.? Please take a shower or bath the night before, or the morning of, surgery with an antibacterial soap.? Wear comfortable, loose fitting clothing.? - Jewelry must be removed prior to entering the operating room.? Rings and piercings that are not removed may be cut off. - The hospital will not accept responsibility for valuables.? - Please leave all valuables, including medications, at home the day of surgery. If you are going home after surgery, a licensed personal driver must drive you home.? - NO public transportation without another adult if you receive anesthesia. - We recommend that an adult stay with you for 24 hours following discharge. - We also recommend that you do not drive, make important decision, drink alcoholic beverages, or take any drugs that were not prescribed by your health care provider for at least 24 hours after your discharge time. Follow any additional instructions given to you from your surgeon. Telephone instructions given to _Kenyetta___and asked if any additional questions and then verbalized understanding. Patient advised to call surgeon office or pre surgery nurse liaison [phone] if any additional questions.
--- OUTSIDE RECORDS SUMMARY | 2024-12-20 00:48 | XMS_ITS | Clinical Summary ---
Author Organization [facility] Address [address] [place] [id number] Care Team Providers Care Human Performance Professor Name Role Phone Mina Snyder Primary Care Provider [phone] Social History Tobacco Use Types Packs/Day Years Used Date Smoking Tobacco: Never Assessed Comments Unknown Sex and Gender Information Value Date Recorded Sex Assigned at Female 05/24/2024 10:16 AM ARTIFICIAL FLOWERS DYER Legal Sex Female 5:46 PM ARTIFICIAL FLOWERS DYER Gender Identity Not on file Sexual Orientation [...] wi th HPV 02/17/2004 Mammogram Screening 2014 Pneumococcal Vaccine: 50+ Years (1 of 1 - PCV) 02/17/2024 Zoster Vaccines (1 of 2) 02/17/2024 COVID-19 Vaccine (3 - 2024-2 6 season) 2024 12/30/2020, 12/09/2020 DTaP, Tdap and Td Vaccines ( 2 [...] patient's age to complete this topic Insurance [facility] Care Teams Human Performance Professor Relationship Specialty Start Date End Date Mina Snyder PA [address] [place] [phone] PCP - General PHYSICIAN PARASITOLOGY TEACHER 04/03/22
--- NOTE | 2024-12-20 10:24 | PM.IMHP ---
H&P: HPI History of Present Illness Date/Time: 12/20/24 10:24 Chief Complaint: Heavy bleeding. Narrative: 1 y/o with heavy, prolonged vaginal bleeding. She has menses every 3 weeks or so, with 7 days of heavy flow. She will frequently overflow protection, with blood sometimes running down her legs. She has cramping as well. She had been taking DMPA for years and did not have any vaginal bleeding. Last year she was diagnosed with a likely meningioma and also had a possible stroke, so she was taken off her medication. The last dose was in Nov 2023. She was told by her PCP that her labwork results were in the menopausal range. She and her are not sexually active. An ultrasound exam on 09/21/24 showed an endometrial stripe that was 11mm thick, and was otherwise unremarkable. She is interested in surgical management of her problem. Review of Systems Review of Systems: All systems reviewed & are unremarkable except as noted in HPI and below PMFSH Past Medical History Medical History Stroke Meningioma Chronic headache Pseudotumor cerebri Reversible cerebrovascular vasoconstriction syndrome Surgical History Surgical History H/O cervical spine surgery Previous section Family History Family History Mother Cancer Diabetes mellitus Heart disease Father Diabetes mellitus Heart disease Cerebrovascular accident Hypertension Sibling Diabetes mellitus Heart disease Hypertension Grandparent Cancer Depression Anxiety Diabetes mellitus Social History Social History Smoking status: Never smoker Alcohol intake: current Alcohol use details: rarely Substance use: never Substance use type: does not use Living arrangements: with family Spiritual care concerns: No Meds Home Medications and Allergies Home Medications ?Medication ?Instructions ?Recorded ?Confirmed ?Type tizanidine 4 mg tablet 4 mg PO TID 12/06/19 12/07/24 History nortriptyline 10 mg capsule 20 mg PO DAILY 02/04/24 12/07/24 History potassium chloride 20 mEq 20 meq PO DAILY 02/04/24 12/07/24 History tablet,extended release(part/cryst) (Klor-Con M) aspirin 81 mg tablet 81 mg PO DAILY 11/07/24 12/07/24 History etodolac 400 mg tablet 400 mg PO BID 11/07/24 12/07/24 History fenofibrate 160 mg tablet 160 mg PO DAILY 11/07/24 12/07/24 History galcanezumab-gnlm 120 mg/mL 120 mg subcut MONTHLY 11/07/24 12/07/24 History subcutaneous syringe (Emgality) semaglutide 2 mg/dose (8 mg/3 mL) 2 mg subcut WEEKLY 11/07/24 12/07/24 History subcutaneous pen injector (Ozempic) pregabalin 150 mg capsule 150 mg PO BID 12/07/24 12/07/24 History Allergies Allergy/AdvReac Type Severity Reaction Status Date / Time codeine (From Allergy Anaphylaxis Verified 12/07/24 11:03 Tylenol-Codeine #3) Exam Const: Orientation/consciousness: patient oriented x3 Other: Well-developed, well-nourished female in no acute distress. Neck: Thyroid: thyroid normal Lymphatic: no lymphadenopathy noted (in neck, axilla or inguinal nodes) Resp: Effort & Inspection: normal respiratory effort Auscultation: clear to auscultation bilaterally Cardio: Rate: regular rate Rhythm: regular rhythm Heart sounds: S1 normal heart sound present and S2 normal heart sound present GI: Other: ABD: Soft, nontender, nondistended. No guarding or rebound tenderness. No hepatosplenomegaly. : General: Yes no CVA tenderness Other: External genitalia: normal female hair distribution, without lesion. Urethral meatus: no lesion, non prolapsed. Bladder: no mass, nontender Vagina: well-estrogenized, without lesion or discharge. No cystocele or rectocele. Cervix: no lesion or discharge. Uterus: small, anteverted, freely mobile, nontender Adnexa: no mass or tenderness. Anus/perineum: no lesions, nontender Back/Spine/Pelvis: Back: no CVA tenderness Skin: General skin exam: normal color and no rashes or lesions noted Neuro: General: patient oriented x3 Extrem: Other: Extremities: nontender with no edema Psych: Mental Status: mental status grossly normal Affect: normal affect Assessment and Plan Assessment and plan (1) Menometrorrhagia: Code(s): N92.1 - Excessive and frequent menstruation with irregular cycle Status: Acute Assessment and Plan: A: Menometrorrhagia. P: We reviewed medical as well surgical approaches to her problem. She is interested in hysteroscopy with dilation and sharp curettage and endometrial ablation. She understands risks of surgery to include risks of anesthesia, risks of pain, infection, bleeding, blood products, thromboembolic phenomena and damage to adjacent structures such as bowel, bladder, ureters, blood vessels and nerves. She understands all these risks and elects to proceed with surgery.
[2024-12-20 11:10] VITALS: BP 100/66; PULSE 75; RESP 16; TEMP 37.1; O2SAT 98
[2024-12-20] MEDS: LACTATED RINGERS 1,000 ML 30 ML IV CONT (11:10)
[2024-12-20] MEDS: ACETAMINOPHEN 500 MG TABLET 1000 MG PO (11:10)
[2024-12-20 11:15] LABS: BEDSIDEPREGUCG Negative (Negative)
--- NOTE | 2024-12-20 11:21 | WPDANESEPPF ---
Anes - Initial Pre Proc Eval Procedure: Operation Date: 12/20/24 12:00 Proposed Procedures p Hysteroscopy Dilation and Curettage with Rossana Endometrial Ablation - Nick Brennan MD Date/Time: 12/20/24 11:22 Surgeon: Nick Brennan MD Pre Op Diagnosis: Menometrorrhagia Patient Data Age: 49 Gender: F Height: 1.52 m Weight: 82.5 kg Last Vital Signs Temp 37.1 C 12/20/24 11:10 Pulse 75 12/20/24 11:10 Resp 16 12/20/24 11:10 BP 100/66 12/20/24 11:10 Pulse Ox 98 12/20/24 11:10 O2 Del Method Room Air 12/20/24 11:10 Allergies Allergy/AdvReac Type Severity Reaction Status Date / Time codeine (From Allergy Anaphylaxis Verified 12/20/24 11:14 Tylenol-Codeine #3) Home Medications ?Medication ?Instructions ?Recorded ?Confirmed ?Type tizanidine 4 mg tablet 4 mg PO TID 12/06/19 12/20/24 History nortriptyline 10 mg capsule 20 mg PO DAILY 02/04/24 12/07/24 History potassium chloride 20 mEq 20 meq PO DAILY 02/04/24 12/07/24 History tablet,extended release(part/cryst) (Klor-Con M) aspirin 81 mg tablet 81 mg PO DAILY 11/07/24 12/20/24 History etodolac 400 mg tablet 400 mg PO BID 11/07/24 12/20/24 History fenofibrate 160 mg tablet 160 mg PO DAILY 11/07/24 12/07/24 History galcanezumab-gnlm 120 mg/mL 120 mg subcut MONTHLY 11/07/24 12/07/24 History subcutaneous syringe (Emgality) semaglutide 2 mg/dose (8 mg/3 mL) 2 mg subcut WEEKLY 11/07/24 12/20/24 History subcutaneous pen injector (Ozempic) pregabalin 150 mg capsule 150 mg PO BID 12/07/24 12/20/24 History Laboratory Tests 12/20/24 12/20/24 11:03 11:10 Sodium Pending Potassium Pending Chloride Pending Carbon Dioxide Pending Anion Gap Pending BUN Pending Creatinine Pending Estim Creat Clear Calc Pending Estimated GFR Pending Glucose Pending Calcium Pending POC Urine HCG, Qual Negative (Negative) Patient hx anesthesia problems: none Family hx anesthesia problems: none Results Review: All pre-operative results and documents have been reviewed as part of the pre-operative evaluation. [facility] Past Medical History Medical History (Updated 12/20/24 @ by Best Pearson MD) Stroke Meningioma Chronic headache Reversible cerebrovascular vasoconstriction syndrome Surgical History Surgical History (Reviewed 12/20/24 @ : by Best Pearson MD) H/O cervical spine surgery Previous section Family History Family History (Reviewed 12/20/24 @ : by Best Pearson MD) Mother Cancer Diabetes mellitus Heart disease Father Diabetes mellitus Heart disease Cerebrovascular accident Hypertension Sibling Diabetes mellitus Heart disease Hypertension Grandparent Cancer Depression Anxiety Diabetes mellitus Social History Social History (Reviewed 12/20/24 @ : by Best Pearson MD) Smoking status: Never smoker Alcohol intake: current Alcohol use details: rarely Substance use: never Substance use type: does not use Living arrangements: with family Spiritual care concerns: No Anes - Eval Final PreProcedure Day of Procedure 12/20/24 11:22 Patient weight: obese Heart: regular rate and rhythm Lungs: clear to auscultation Airway: Mallampati scale class II Neurological: alert and oriented Last oral intake: >/= 8 hours ASA classification: III Emergent: no Anesthetic plan: proceed Anesthesia type and monitoring: general GIVS and standard monitoring Results Review: All pre-operative results and documents have been reviewed as part of the pre-operative evaluation. Informed Consent: The patient's anesthetic plan and its attendant risks and benefits were discussed with the patient/family/POA. Questions were solicited and answers provided to the satisfaction of the patient/family/POA.
[2024-12-20 11:55] LABS: Anion Gap 8 mmol/L (4-12); Blood Urea Nitrogen 14 mg/dL (7-17); Calcium 8.7 mg/dL (8.4-10.2); Carbon Dioxide 25 mmol/L (22-30); Chloride 104 mmol/L (98-107); Estimated CRCL calculation 83 ml/min; Estimated Glomerular Filt Rate > 60; Glucose 100 mg/dL (65-110); Potassium 4.4 mmol/L (3.4-5.0); Sodium 137 mmol/L (137-145)
--- NOTE | 2024-12-20 12:05 | WPDHPUPDATE1 ---
History and Physical Update Update Date/Time: 12/20/24 12:05 History and Physical has been reviewed, including an updated exam of the patient. There are NO changes in the patient's condition. Risks, benefits, and alternatives have been discussed and questions answered. Patient agrees to proceed with procedure.
[2024-12-20] MEDS: LIDOCAINE 1% LOCAL INJ 10 ML VIAL INFILTRATE (12:25)
--- NOTE | 2024-12-20 12:36 | S_PTH ---
PATIENT: Kenyetta Saucedo LOC: [facility] U#:[id number] AGE/SX: 49/F ROOM: RE12/20/[address]: Nick Brennan MD : 1975 BED: DIS: 12/20/2024 SPEC #: [id number] RECD: 12/20/24 12:41 STATUS: SHANELLE REQ #: [id number] VIOLA: 12/20/24 12:[address]: Nick Brennan DEPT: [facility] Surgical RECD BY: Ayush Jacome ENTERED: 12/20/24 12:41 SP TYPE: Surgical OTHR DR: Manoj Ibanez, Tissues: A - Endometrial Curettings Procedures: Hematoxylin and Eosin Stain Gross and Microscopic Level 4
[2024-12-20 12:43] VITALS: BP 118/80; PULSE 69; RESP 15; O2SAT 96
--- NOTE | 2024-12-20 12:43 | W.PM.PROC2 ---
Procedure Note - Detailed Date of Procedure 12/20/24 Pre-op Diagnosis Menometrorrhagia Post-op Diagnosis Same Procedure Performed Hysteroscopy Dilation and sharp curettage Endometrial ablation Surgeon Nick Brennan MD Anesthesia MAC and Local (1% lidocaine) Findings The uterus was retroverted, sounded to a depth of 8.5 cm. Both tubal ostia seen. No obvious endometrial pathology. Description of Procedure The patient was taken to the operating room where she was prepared and draped in the usual sterile fashion in the dorsal lithotomy position. The bladder was drained with a red rubber catheter. A sterile speculum was placed into the vagina. The anterior lip of the cervix was grasped with single-tooth tenaculum. Ten mL of 1% lidocaine was administered in a paracervical block. The cervix was then gently dilated using Hegar dilators until a 7 mm dilator could be passed. Hysteroscopy was performed using sterile saline as a distention medium. Findings are as noted above. Sharp curettage was then performed, and endometrial curettings were collected on a Telfa pad and passed off to be sent to pathology. Finally, the the Rossana device was advanced and endometrial ablation commenced without difficulty. The device was withdrawn and a second look was taken using the hysteroscope. Excellent coverage of the endometrial cavity was noted. The tenaculum was removed. Hemostasis was excellent. Sponge, lap, needle and instrument counts were correct. The patient was awakened and taken to the recovery room in stable condition. I was present and scrubbed through the entire procedure. Implants None Estimated Blood Loss 5 Drains No Packing No Pathology Yes (Endometrial curettings) Complications None Condition Stable Disposition PACU [facility] Billing Surgery - Charge Forward: Surgery Billing
[2024-12-20 13:13] VITALS: BP 137/78; PULSE 65; RESP 16
== END 2024-12-20 13:28 | disposition home or self-care (01) ==
PROVIDERS: Anesthesiology; PCP Family Medicine; Visit Provider Obstetrics & Gynecology
PROC: 0U5B8ZZ Destruction of Endometrium, Via Natural or Artificial Opening Endoscopic (ICD-10-PCS; CPT 58563; principal; 2024-12-20 12:00)
DX: N85.4 Malposition of uterus (principal); G89.18 Other acute postprocedural pain; R51.9 Headache, unspecified; E66.9 Obesity, unspecified; Z68.35 Body mass index [BMI] 35.0-35.9, adult; Z79.82 Long term (current) use of aspirin; Z79.85 Long-term (current) use of injectable non-insulin antidiabetic drugs; Z98.890 Other specified postprocedural states; Z98.1 Arthrodesis status; Z86.73 Personal history of transient ischemic attack (TIA), and cerebral infarction without residual deficits; Z80.9 Family history of malignant neoplasm, unspecified; Z82.49 Family history of ischemic heart disease and other diseases of the circulatory system
CPT/HCPCS: 58563; 36415; 80048; 82948; 88305; A9270; J1100; J2003; J2250; J2405; J2704; J3010; J7120

== ENCOUNTER 2025-02-22 12:48 | Outpatient (CLI) | payer BC, SELFPAY ==
--- NOTE | ~2025-02-22 | MR_ITS ---
EXAMINATION: MR brain/brain stem wo/w con DATE: 02/22/2025 15:59 INDICATION: Benign neoplasm of cerebral meninges TECHNIQUE: Magnetic resonance imaging (MRI) of the brain and brainstem was performed without and with 18 mL Multihance intravenous contrast. Sequences included sagittal and axial T1-weighted SE, axial diffusion-weighted FS SE, axial T2*-weighted GRE, axial T2-weighted FLAIR, and axial T2-weighted FSE. Postcontrast axial, sagittal and coronal T1-weighted FSE and sagittal FSPGR PROBABLE were also obtained. Apparent diffusion coefficient (ADC) maps were created. COMPARISON: 11/20/2023 FINDINGS: No significant interval change in a 1.5 x 1.4 x 1.3 cm enhancing extra-axial mass with enhancing dural tail arising along the greater wing of the right sphenoid consistent with a meningioma. There is mild peritumoral edema in the surrounding anterior inferior right frontal lobe. No interval change in 3 small regions of encephalomalacia one each at the posterior medial aspect of the left and right parietal lobes and 1 in the right occipital lobe consistent with sequela of old infarcts. There are no areas of restricted diffusion to suggest acute infarction. No intracranial hemorrhage or other abnormal intracranial mass lesion. There are no intraparenchymal signal abnormalities seen on the other pulse sequences. The ventricles are symmetric and normal in size. There are no abnormal extra-axial fluid collections. Flow voids are seen in the cerebral arteries on the T2-weighted sequences consistent with their expected patency. Visualized orbits and soft tissues are unremarkable. There are no other areas of abnormal enhancement on the post contrast images. IMPRESSION: 1. No interval change in a 1.5 cm extra-axial right greater sphenoid wing meningioma. 2. Unchanged small old infarcts in the bilateral posterior parietal and right occipital lobes. Reviewed, dictated and finalized at location A. WRITER IMPRESSION: 1. No interval change in a 1.5 cm extra-axial right greater sphenoid wing menin gioma. 2. Unchanged small old infarcts in the bilateral posterior parietal and right o ccipital lobes.
[2025-02-22 13:10] LABS: Hematocrit 39.4 % (35.0-49.0); Hemoglobin 13.2 g/dL (12.0-15.0); Immature Granulocyte Percent A 0.3 % (0.0-0.0); Lymphocytes Absolute Auto 1.64 K/mm3 (1.10-4.50); Mean Corpuscular HGB Conc 33.5 g/dL (32-36); Mean Corpuscular Hemoglobin 30.1 pg (27.0-31.0); Mean Corpuscular Volume 90.0 fL (78.0-102.0); Nucleated Red Blood Cells Absolute Auto 0.00 K/mm3 (0.00-0.00); Nucleated Red Blood Cells Perc 0.0 % (0-0.0); Platelet Count Result 262 K/mm3 (150-420); Red Blood Count 4.38 M/mm3 (4.20-5.40); White Blood Count 6.7 K/mm3 (4.8-10.8)
[2025-02-22 13:23] LABS: Hemoglobin A1C 6.1 % (<5.7)
[2025-02-22 14:02] LABS: Iron 118 ug/dL (37-170)
[2025-02-22 14:04] LABS: Alanine Aminotransferase 50 U/L (6-35); Albumin Level 4.8 g/dL (3.5-5.1); Alkaline Phosphatase 44 U/L (38-126); Anion Gap 10 mmol/L (4-12); Aspartate Amino Transferase 40 U/L (14-36); Bilirubin,Total 0.5 mg/dL (0.2-1.3); Blood Urea Nitrogen 15 mg/dL (7-17); Calcium 9.7 mg/dL (8.4-10.2); Carbon Dioxide 25 mmol/L (22-30); Chloride 104 mmol/L (98-107); Cholesterol 211 mg/dL (0-200); Estimated Glomerular Filt Rate > 60; Glucose 104 mg/dL (65-110); HDL Direct 50 mg/dL; Osmolality Calculated 288 mOsm/kg (285-295); Potassium 4.5 mmol/L (3.4-5.0); Sodium 139 mmol/L (137-145); Total Protein 7.2 g/dL (6.3-8.2); Triglycerides 200 mg/dL (<150)
[2025-02-22 14:12] LABS: Percent Iron Saturation 29 % (20-50)
[2025-02-22 14:34] LABS: Thyroid Stimulating Hormone 2.400 uIU/mL (0.465-4.680)
== END 2025-02-22 12:49 | disposition home or self-care (01) ==
PROVIDERS: PCP Family Medicine
DX: E11.9 Type 2 diabetes mellitus without complications (principal); N92.0 Excessive and frequent menstruation with regular cycle; E78.00 Pure hypercholesterolemia, unspecified; D32.0 Benign neoplasm of cerebral meninges; Z86.73 Personal history of transient ischemic attack (TIA), and cerebral infarction without residual deficits
CPT/HCPCS: 36415; 70553; 80053; 80061; 83036; 83540; 83550; 84443; 85025; A9577